=== PATIENT | male | born 1960 | race Caucasian/White ===

== ENCOUNTER 2021-08-23 12:01 | Outpatient (REF) | payer MEDICARE, MEDICAID, SELFPAY ==
[2021-08-23 14:58] LABS: COVID-19 Test Negative (Negative); IDNOW Serial# 16C4AD1C
== END 2021-08-23 12:02 | disposition home or self-care (01) ==
LOC: HO.LAB 12:01
PROVIDERS: Visit Provider Internal Medicine
DX: Z20.822 Contact with and (suspected) exposure to COVID-19 (principal)
CPT/HCPCS: 36415; 87635; C9803

== ENCOUNTER 2023-08-18 08:38 | Outpatient (AMB) | payer MEDICARE, MEDICAID, SELFPAY ==
--- NOTE | 2023-08-18 08:39 | MHC.OFFWIV ---
Intake Vital Signs 08/18/23 08:42 Height 5 ft 11 in Weight 276 lb BMI 38.5 BP 160/80 H Blood Pressure Location Lt brachial Position Sitting Pulse 88 Temp 97.9 F Temp Source Temporal Artery Scan Pulse Oximetry (%) 97 Oxygen Delivery Method Room Air Intake Visit Reasons: EP Cough, mucus, Hot Intake Note: pt is here today for cough,mucus hot started 08/13 Patient Tobacco Use Status: Never used Tobacco Allergies No Known Allergies Allergy (Verified 08/18/23 08:40) Do you need a note to return to daycare/school/sports/work: No HPI EP Cough, mucus, Hot HPI Details This is a 62-year-old male patient who presents today for a sick visit. He reports a 5-6 day history of persistent dry cough, nasal congestion, and feelings of being hot and cold. Denies known exposure to sick contacts. Has been hydrated, and taking [id number] Flonase and Mucinex with some minor relief. Denies any shortness of breath or GI symptoms. [facility] Social History Patient Tobacco Use Status: Never used Tobacco Review of Systems Const All systems reviewed & are unremarkable except as noted in HPI and below Physical Exam Const General: cooperative and no acute distress HEENT Head: Yes normocephalic Ears: hearing grossly normal bilaterally General nose exam: Normal external nose present and Normal nares present Face and sinus: Yes normal facial exam Mouth: Normal oral and palatal mucosa present Throat: Yes posterior oropharynx abnormal (mild erythema) Neck Neck: Yes no lymphadenopathy Resp Effort & Inspection: normal respiratory effort, able to speak in complete sentences and Actively coughing Quality: dry Auscultation: clear to auscultation bilaterally Cardio Jugular venous distension: no JVD Palpation: normal PMI Rate: regular rate Rhythm: regular rhythm Skin General skin exam: no rashes or lesions noted Extrem General: Yes capillary refill normal and Yes no clubbing, cyanosis or edema Psych Appearance: grossly normal Mental Status: mental status grossly normal Speech and movement: Normal speech and movement present Assessment & Plan Assessment & Plan (1) Upper respiratory infection: Code(s): J06.9 - Acute upper respiratory infection, unspecified Qualifiers: URI type: unspecified viral URI Qualified Code(s): J06.9 - Acute upper respiratory infection, unspecified Plan: Symptoms consistent with viral upper respiratory illness. COVID/flu/RSV swab obtained, and patient aware he will be notified of results with these are available. I encouraged him to continue with conservative measures for supportive treatment, with flonase, Mucinex, adequate hydration, vitamin C intake, Tylenol/Motrin and I will start him on a course of Benzonate for his cough. If he develops any worsening symptoms, or does not improve with time and these measures, he can return to the clinic for further evaluation. He verbalizes understanding and agrees to plan. Orders: Orders SARS-CoV2/FLU/RSV Today J06.9 - Acute upper respiratory infection, unspecified Medications: New benzonatate 100 mg PO BID 7 days PRN 14 caps 0RF cough R05.9 - Cough, unspecified Coding Level of Care Code Est Pt Level 3 (92998) Diagnoses Viral upper respiratory tract infection J06.9 URI type: unspecified viral URI
[2023-08-18 08:42] VITALS: BP 160/80; PULSE 88; TEMP 36.6; O2SAT 97; BMI 38.5
== END 2023-08-18 08:58 | disposition home or self-care (01) ==
PROVIDERS: Visit Provider Nurse Practitioner Family
DX: J06.9 Acute upper respiratory infection, unspecified (principal)
CPT/HCPCS: 99213

== ENCOUNTER 2023-08-18 08:51 | Outpatient (REF) | payer MEDICARE, MEDICAID, SELFPAY ==
[2023-08-18 12:31] LABS: Influenza A PCR NEGATIVE (Negative); Influenza B PCR NEGATIVE (Negative); Resp Syncy Virus RNA Qual PCR NEGATIVE (Negative); SARS COV2 PCR INHOUSE NEGATIVE (Negative)
== END 2023-08-18 08:52 | disposition home or self-care (01) ==
LOC: HO.LAB 08:51
PROVIDERS: Visit Provider Nurse Practitioner Family
DX: J06.9 Acute upper respiratory infection, unspecified (principal); Z11.52 Encounter for screening for COVID-19
CPT/HCPCS: 0241U

== ENCOUNTER 2023-09-06 13:38 | Outpatient (AMB) | payer MEDICARE, MEDICAID, SELFPAY ==
[2023-09-06 14:16] VITALS: BP 160/86; PULSE 78; TEMP 36.9; O2SAT 96; BMI 38.5
--- NOTE | 2023-09-06 14:16 | AM.OFFWIN_ITS ---
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 Tells me this is the worst it was been. Was seen here on 08/18 and sent something for cough that didnt help. Reports he has a remote hx of asbestosis. Denies pain, fevers, chills, shortness of breath, nausea, vomiting, diarrhea, abdominal pain, headache, vision changes. PE- sinus ttp and facial pressure w/ forward bending History and physical exam concerning for sinusitis. Due to length of symptoms low suspicion for viral illness. This is likely bacterial. No signs of sepsis. Other differentials include pneumonia. Unlikely acute respiratory distress, PE, ACS Plan at this time will discharge with albuterol, prednisone and Augmentin. Educated patient on diagnosis and treatment plan, answered all question, patient verbalizes understanding. At this time patient will be discharged home, advised to return with new or worsening symptoms. Educated on worrisome signs and symptoms and when to return. At this time I feel comfortable discharge home. [facility] Social History Patient Tobacco Use Status: Never used Tobacco Review of Systems Const Details: Constitutional : No Weight loss, No Fever, No Chills, No Fatigue, No Malaise ENT/Mouth : No sore throat, No Rhinorrhea, + sinus pressure Eyes: No Eye Pain, No Swelling, No Redness Cardiovascular : No Chest Pain, No SOB, No Dyspnea on Exertion, No Orthopnea, No Edema, No Palpitations Respiratory : + Cough, No Sputum, No Wheezing Gastrointestinal : No Nausea, No Vomiting, No Diarrhea, No Constipation, No abdominal Pain, No Hematochezia, No Melena Genitourinary : No Dysuria, No Urinary Frequency, No Hematuria, Musculoskeletal : No joint pain, No Myalgias, No Joint Swelling Skin : No Skin Lesions, No rash Neuro : No Weakness, No Numbness, No Dizziness, No Headache Psych : No Anxiety/Panic, No Depression All other systems reviewed and are negative All systems reviewed & are unremarkable except as noted in HPI and below Physical Exam Vital Signs: Last Vital Signs Temp 98.4 F 09/06/23 14:16 Pulse 78 09/06/23 14:16 BP 160/86 H 09/06/23 14:16 Pulse Ox 96 09/06/23 14:16 Oxygen Delivery Method Room Air 09/06/23 14:16 BMI result Body Mass Index 38.5 vss Appearance: Alert.? Oriented X3.? No acute distress.? Head: Normocephalic, atraumatic, no step-offs or deformities + TTP to facial sinuse Eyes: Pupils equal, round and reactive to light.? Neck: Normal inspection.? Neck supple.? CVS: Normal heart rate and rhythm.? Pulses normal.? Respiratory: No respiratory distress.? Breath sounds normal.? Abdomen: Soft and nontender.? Skin: Skin warm and dry.? Normal skin color.? Normal skin turgor.? Extremities: No lower extremity edema.? No calf ttp. 5/5 strength to bilateral upper and lower extremities Neuro: Oriented X 3.? No motor deficit.? No sensory deficit. CN 2-12 intact Assessment & Plan Assessment & Plan (1) Bronchitis: Code(s): J40 - Bronchitis, not specified as acute or chronic Plan Take your medications as prescribed. If you were prescribed antibiotics today, it is important that you take your medication to their entirety, do not skip any doses, do not finish them early. Follow-up with your primary care provider this week. Return to the emergency department with new or worsening symptoms. In case of emergency call 911 Orders: Orders BinaxNOW Covid-19 Ag Today J06.9 - Acute upper respiratory infection, unspecified Medications: New albuterol sulfate 90 mcg/actuation 2 puffs inhalation Q6H PRN 6.7 grams 0RF shortness of breath or wheezing prednisone 40 mg (2 x 20 mg) PO DAILY 5 days 10 tabs 0RF amoxicillin-pot clavulanate 875-125 mg 1 tab PO BID 10 days 20 tabs 0RF prednisone 40 mg (2 x 20 mg) PO DAILY 5 days 10 tabs 0RF albuterol sulfate 90 mcg/actuation 2 puffs inhalation Q6H PRN 6.7 grams 0RF shortness of breath or wheezing Coding Level of Care Code Est Pt Level 3 (56214) Diagnoses Bronchitis J40
== END 2023-09-06 14:43 | disposition home or self-care (01) ==
PROVIDERS: Visit Provider Physician Assistant
DX: J40 Bronchitis, not specified as acute or chronic (principal)
CPT/HCPCS: 99213

== ENCOUNTER 2023-11-01 07:49 | Outpatient (AMB) | payer MEDICARE, MEDICAID, SELFPAY ==
[2023-11-01 08:03] VITALS: BP 140/72; PULSE 83; O2SAT 94; BMI 35.9
--- NOTE | 2023-11-01 08:03 | MHC.PC.OV ---
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 Care Intake Note: Pt is here to est care pt colon screen 08/21/2020 Allergies No Known Allergies Allergy (Verified 11/01/23 08:26) Medication List - Last Reconciled 11/01/23 by MI [place] albuterol sulfate 90 mcg/actuation 2 puffs inhalation Q6H PRN amlodipine 5 mg PO DAILY apple cider vinegar mg PO ascorbate calcium (vitamin C) 500 mg PO DAILY bill seed oil-omega 3-6-9 1,000 mg (580 mg) caps PO methadone 28 mg PO QDAY testosterone cypionate mg IM valsartan-hydrochlorothiazide 320-12.5 mg 1 tab PO DAILY Tobacco use date assessed: 11/01/23 Dental Screening Dental Screen Date: 11/01/23 Did you have a dental visit in the last 12 months?: No Did you have a dental problem in the last 6 months where you did not have access to dental care?: No Was dental information given to patient?: Patient has dentist HPI HPI Comments History of Present Illness Details Patient is a 62-year-old male that I am seeing for the 1st time. Patient is due for colonoscopy, completed Cologuard 4 years prior, will refer to GI. 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 Will draw fasting labs today, including PSA. Will also draw A1c, and testosterone. Patient's blood pressure today's visit is 140/72. This is an improvement from previous visit the walk-in or patient's blood pressure was 160/90. Patient does not want medication to increase medication at this time, instead will take blood pressure measurements at home. Blood pressure remains consistently elevated will titrate up amlodipine. Patient denies dizziness, headache, numbness, chest pain, shortness a breath, nausea, vomiting, diarrhea. The patient also recently had left arthroscopic knee surgery, has knee brace and crutches in the office today. He is being followed by [facility]. Patient has a chief complaint today postnasal drip x3 months. Patient has tried eliminating allergens from his home or potential irritants to his respiratory system, with little effect. Patient has not yet utilize fluticasone, or other allergy medication. Will start dose today with a small course of prednisone due to the patient having a feeling of ear fullness and his left ear. [facility] Surgical History S/P left knee arthroscopy History of right hip replacement Family History Mother CHF (congestive heart failure) Social History Housing: House Alcohol intake: current Comment: once a month Patient Tobacco Use Status: Never used Tobacco e-Cigarette/Vaping Use: Never Used Second Hand Smoke Exposure: No service: No Current occupational status: disabled Questionnaire PHQ-9 Over the last 2 weeks, how often have you been bothered by any of the following problems? 1. Little interest or pleasure in doing things: not at all 2. Feeling down, depressed, or hopeless: several days 3. Trouble falling or staying asleep, or sleeping too much: not at all 4. Feeling tired or having little energy: not at all 5. Poor appetite or overeating: not at all 6. Feeling bad about yourself - or that you are a failure or have let yourself or your family down: several days 7. Trouble concentrating on things, such as reading the newspaper or watching television: not at all 8. Moving or speaking so slowly that other people could have noticed. Or the opposite - being so fidgety or restless that you have been moving around a lot more than usual: not at all 9. Thoughts that you would be better off or of hurting yourself in some way: not at all Total score: 2 Depression Screening Interpretation: Negative Depression Screening Done: Yes 27607 - PHQ-9 Billing: Yes Source: Developed by Drs. Anurag Miranda, Pari Garzon, Rosales Oakley and colleagues, with an educational pao from [employer]. Thrive Questionnaire Date Thrive assessed: 11/01/23 I am a: Patient What is your living situation today?: I have a steady place to live Within the past 12 months, did the food you bought not last and you didn't have the money to get more?: Sometimes True Within the past 12 months, did you worry whether your food would run out before you got money to buy more?: Sometimes True Do you have trouble paying for medicines?: No Do you have trouble getting transportation to medical appointments?: No Do you have trouble paying your heating and electricity bill?: Yes Do you have trouble taking care of your child, family member or friend?: No Do you have trouble with day-to-day activities such as bathing, preparing meals, shopping, managing finances, etc.?: No Are you currently unemployed and looking for a job?: No Are you interested in more education?: No THRIVE Score: 3 AUDIT C Alcohol Use Questionnaire (AUDIT-C) 1. How often do you have a drink containing alcohol?: Monthly or less 2. How many drinks containing alcohol do you have on a typical day when you are drinking?: 1 or 2 3. How often do you have six or more drinks on one occasion?: Never Total Score: 1 NATALIIA-7 AMB Questionnaire NATALIIA-7 Date NATALIIA - 7 assessed: 11/01/23 Feeling nervous, anxious, or on edge: 1 = Several days Not being able to stop or control worryin = Not at all Worrying too much about different things: 0 = Not at all Trouble relaxin = Not at all Being so restless that it is hard to sit still: 0 = Not at all Becoming easily annoyed or irritable: 1 = Several days Feeling afraid as if something awful might happen: 0 = Not at all Total NATALIIA-7 score (0-4 normal; 5-9 mild; 10-14 moderate; 15-21 severe): 2 Source: Developed by Drs. Anurag Miranda, Pari Garzon, Rosales Oakley and colleagues, with an educational pao from [employer]. NATALIIA-7 Assessment Billing NATALIIA-7 Assessment Tool: NATALIIA-7 Assessment 28768 Review of Systems Const All systems reviewed & are unremarkable except as noted in HPI and below ENT Reports nasal congestion, Reports post nasal drip and Reports other (Ear fullness left ear) Physical exam (Primary Care) Care Plan Goal for BP management: Patient will take blood pressure measurements at home. Next steps: Will get back to office if blood pressure measurements remain elevated in 2 weeks. BMI result Body Mass Index 35.9 Tobacco/Smoking Status: Tobacco use Status Patient Tobacco Use Status Never used Tobacco 11/01/23 08:03 Depression Screening Interpretation: Negative Const Other: Appearance: Alert.? Oriented X3.? No acute distress.? Head: Normocephalic, atraumatic, Eyes: Pupils equal, round and reactive to light.? ENT: Pharynx Erythema, +post nasal drip. TM intact and pearly carrillo, effusion of left TM without erythema. ? Neck: Normal inspection.? Neck supple.? CVS: Normal heart rate and rhythm.? Pulses normal.? Respiratory: No respiratory distress.? Breath sounds normal.? Skin: Skin warm and dry.? Normal skin color.? Normal skin turgor.? Neuro: Oriented X 3.? No motor deficit.? No sensory deficit. CN 2-12 intact Assessment and Plan Assessment & Plan (1) Hypertension: Comment: Patient will take blood pressure measurements at home and return to the office with values in 2 weeks. Patient has been educated on signs of worsening symptoms and when to report back to the office or when to present to the deep Code(s): I10 - Essential (primary) hypertension Qualifiers: Hypertension type: unspecified Qualified Code(s): I10 - Essential (primary) hypertension (2) Post-nasal drip: Comment: Will give Flonase and Zyrtec. Code(s): R09.82 - Postnasal drip (3) Ear fullness: Comment: Will give short course of prednisone. Code(s): H93.8X9 - Other specified disorders of ear, unspecified ear Qualifiers: Laterality: left Qualified Code(s): H93.8X2 - Other specified disorders of left ear Plan: Take your medications as prescribed. If you were prescribed antibiotics today, it is important that you take your medication to their entirety, do not skip any doses, do not finish them early. Follow-up with your primary care provider this week. Return to the emergency department with new or worsening symptoms. Such as fevers, chills, chest pain, shortness of breath, nausea, vomiting, dizziness, headache, vision changes, lethargy In case of emergency call 911 Plan Follow-up in 4 months with physical exam. Orders: Orders TSH reflex Free T4 Today Z13.29 - Encounter for screening for other suspected endocrine disorder Comprehensive Met. Panel Today Z91.89 - Other specified personal risk factors, not elsewhere classified Complete Blood Count Auto Diff Today Z13.0 - Encounter for screening for diseases of the blood and blood-forming organs and certain disorders involving the immune mechanism Lipid Panel Today Z13.220 - Encounter for screening for lipoid disorders PSA,Total (Free>4and<10) Today Z12.5 - Encounter for screening for malignant neoplasm of prostate Vitamin D 25-OH (D2 and D3) Today Z13.21 - Encounter for screening for nutritional disorder Vitamin B6 Today Z13.21 - Encounter for screening for nutritional disorder Vitamin B12 Today Z13.21 - Encounter for screening for nutritional disorder UA CC w/rflx Micro + Cult Today Z13.89 - Encounter for screening for other disorder Testosterone, Free/Total Today E34.9 - Endocrine disorder, unspecified Hemoglobin A1c Today Z13.1 - Encounter for screening for diabetes mellitus Referrals Gastroenterology Referral Z12.11 - Encounter for screening for malignant neoplasm of colon Medications: New fluticasone propionate 50 mcg/actuation (Allergy Relief (fluticasone)) administer into each nostril 2 sprays intranasal DAILY 16 grams 0RF cetirizine (All Day Allergy (cetirizine)) 10 mg PO DAILY 90 caps 0RF prednisone 20 mg PO BID 10 tabs 0RF Coding Level of Care Code Est Pt Level 3 (30794) Diagnoses Hypertension, unspecified type I10 Hypertension type: unspecified Post-nasal drip R09.82 Sensation of fullness in left ear H93.8X2 Laterality: left Additional Codes NATALIIA-7 Assessment Billing - NATALIIA-7 Assessment Tool: NATALIIA-7 Assessment 50310 ([id number]) Time Spent (min) 30
== END 2023-11-01 08:44 | disposition home or self-care (01) ==
PROVIDERS: Visit Provider Nurse Practitioner Primary Care
DX: I10 Essential (primary) hypertension (principal); R09.82 Postnasal drip; H93.8X2 Other specified disorders of left ear
CPT/HCPCS: 99214

== ENCOUNTER 2023-11-02 06:13 | Outpatient (REF) | payer MEDICARE, MEDICAID, SELFPAY ==
[2023-11-02 11:07] LABS: MANUAL DIFF FLAG NO
[2023-11-02 11:13] LABS: Appearance Urine Clear; Color Urine Dark Yellow; Glucose Urine UA Negative (Negative); Leukocyte Esterase Urine Negative (Negative); Nitrite Urine Negative (Negative); PH 5.5 (5.0-9.0); Specific Gravity - Urine 1.025 (1.005-1.025); Urine Blood Negative (Negative); Urine Ketones Negative (Negative); Urine Protein Negative (Neg-Trace)
[2023-11-02 11:34] LABS: Basophils Percent Auto 0.4 % (0-2); Eosinophils Absolute Auto 0.2 X10*3/uL (0.0-0.4); Eosinophils Percent Auto 2.2 % (0-4); Hematocrit 45.5 % (42.0-52.0); Hemoglobin 15.1 g/dl (14.0-18.0); Imm Gran Abs Auto 0.02 X10*3/uL (0.00-0.03); Imm Gran Pct Auto 0.3 % (0.0-0.4); Lymphocytes Absolute Auto 2.2 X10*3/uL (1.2-4.9); Lymphocytes Percent Auto 31.2 % (20-40); Mean Corpuscular HGB Conc 33.2 g/dl (31.0-36.0); Mean Corpuscular Hemoglobin 29.9 pg (27.0-33.0); Mean Corpuscular Volume 90.1 fL (80.0-98.0); Mean Platelet Volume 10.2 fL (9.4-12.4); Monocytes Absolute Auto 0.5 X10*3/uL (0.1-1.2); Monocytes Percent Auto 6.3 % (2-11); Neutrophils Absolute Auto 4.2 x10*3/uL (2.0-8.3); Neutrophils Percent Auto 59.6 % (45-73); Platelet Count 275 X10*3/uL (160-400); Red Blood Count 5.05 X10*6/uL (4.60-5.80); Red Cell Distribution Width 13.2 % (11.0-16.0); White Blood Count 7.1 X10*3/uL (4.8-10.8)
[2023-11-02 11:48] LABS: Estimated Average Glucose 100 mg/dL; Hemoglobin A1c % 5.1 % (<6.0)
[2023-11-02 12:02] LABS: PSA,Total (Free>4and<10) 2.61 ng/mL (0.00-4.00)
[2023-11-02 12:03] LABS: Alanine Aminotransferase 15 U/L (0-40); Albumin Level 4.2 g/dL (3.5-5.0); Alkaline Phosphatase 63 U/L (39-117); Anion Gap 11 (12-20); Aspartate Amino Transferase 18 U/L (5-37); Bilirubin Total 0.8 mg/dL (0.0-1.0); Blood Urea Nitrogen 13 mg/dL (9-16); Calcium 10.5 mg/dL (8.4-10.2); Carbon Dioxide 29 mmol/L (22-29); Chloride 105 mmol/L (96-108); Cholesterol 181 mg/dL (<200); Estimated Glomerular Filt Rate > 60; Glucose Random 87 mg/dL (60-115); HDL Cholesterol 39 mg/dL (>40); LDL Cholesterol Calculated 98 mg/dL (<100); Potassium 4.2 mmol/L (3.3-5.1); Sodium 141 mmol/L (135-145); Total Protein 7.2 g/dL (6.5-8.0); Triglycerides 221 mg/dL (<150)
[2023-11-02 12:07] LABS: TSH reflex Free T4 2.73 uIU/mL (0.32-4.0)
[2023-11-02 12:25] LABS: Vitamin B12 547 pg/mL (200-900)
[2023-11-06 13:52] LABS: Vitamin B6 18.8 ng/mL (2.1-21.7)
[2023-11-07 14:19] LABS: Testosterone, Free 95.6 pg/mL (35.0-155.0); Testosterone, Total 609 ng/dL (250-1100)
== END 2023-11-02 06:14 | disposition home or self-care (01) ==
LOC: HO.HMGCLDS 06:13
PROVIDERS: PCP Nurse Practitioner Primary Care; Visit Provider Nurse Practitioner Primary Care
DX: E34.9 Endocrine disorder, unspecified (principal); Z13.29 Encounter for screening for other suspected endocrine disorder; Z13.0 Encounter for screening for diseases of the blood and blood-forming organs and certain disorders involving the immune mechanism; Z12.5 Encounter for screening for malignant neoplasm of prostate; Z13.21 Encounter for screening for nutritional disorder; Z13.89 Encounter for screening for other disorder; Z13.1 Encounter for screening for diabetes mellitus; Z91.89 Other specified personal risk factors, not elsewhere classified; Z13.220 Encounter for screening for lipoid disorders
CPT/HCPCS: 36415; 80053; 80061; 81003; 82306; 82607; 83036; 84153; 84207; 84402; 84403; 84443; 85025

== ENCOUNTER 2023-12-06 08:35 | Outpatient (AMB) | payer MEDICARE, MEDICAID, SELFPAY ==
[2023-12-06 08:50] VITALS: BP 140/72; PULSE 88; O2SAT 97; BMI 36.0
--- NOTE | 2023-12-06 08:50 | A.OFFPC_ITS ---
Vital Signs 12/06/23 08:50 Height 5 ft 11 in Weight 258 lb 8 oz BMI 36.0 BP 140/72 H Blood Pressure Location Rt brachial Position Sitting Pulse 88 Pulse Source Pulse Oximeter Pulse Oximetry (%) 97 Oxygen Delivery Method Room Air Intake Visit Reasons: Severe mucus problem Intake Note: Pt is here today for severe mucus since , pt states hasn't gotten better. Mild sore throat Allergies No Known Allergies Allergy (Verified 12/06/23 09:02) Medication List - Last Reconciled 12/06/23 by MI [place] albuterol sulfate 90 mcg/actuation 2 puffs inhalation Q6H PRN amlodipine 5 mg PO DAILY apple cider vinegar mg PO ascorbate calcium (vitamin C) 500 mg PO DAILY cetirizine (All Day Allergy (cetirizine)) 10 mg PO DAILY bill seed oil-omega 3-6-9 1,000 mg (580 mg) caps PO fluticasone propionate 50 mcg/actuation (Allergy Relief (fluticasone)) 2 sprays intranasal DAILY methadone 28 mg PO QDAY testosterone cypionate mg IM valsartan-hydrochlorothiazide 320-12.5 mg 1 tab PO DAILY Tobacco use date assessed: 12/06/23 Dental Screening Dental Screen Date: 12/06/23 Did you have a dental visit in the last 12 months?: No Did you have a dental problem in the last 6 months where you did not have access to dental care?: No Was dental information given to patient?: No HPI HPI Comments History of Present Illness Details Patient is a 62-year-old male in for a sick visit. Patient is offering complaints of excessive mucus production, chest congestion, x4 months. Patient has had several for similar issue. Patient states that today he is bringing up green and yellow covered mucus. Denies fever, denies chest pain, denies shortness of breath. Patient states he does get slightly out of breath when going up stairs. 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 Will repeat pulmonary function test. Will obtain chest x- ray today. Will obtain CBC and CMP will give patient Symbicort inhaler, prednisone, azithromycin. Will also refer patient to Pulmonary. Patient also found to be slightly hypertensive at appointment today. This is consistent with previous visits. Patient will be titrated up from 5 mg amlodipine to 10 mg amlodipine. [facility] Surgical History S/P left knee arthroscopy History of right hip replacement Family History Mother CHF (congestive heart failure) Social History Housing: House Alcohol intake: current Comment: once a month Patient Tobacco Use Status: Never used Tobacco e-Cigarette/Vaping Use: Never Used Second Hand Smoke Exposure: No service: No Current occupational status: disabled Cognitive needs: No Hearing needs: No Vision needs: No Questionnaire Thrive Questionnaire Date Thrive assessed: 11/01/23 AUDIT C Alcohol Use Questionnaire (AUDIT-C) 1. How often do you have a drink containing alcohol?: Never 3. How often do you have six or more drinks on one occasion?: Never Total Score: 0 Score Reviewed/Action Taken: Yes NATALIIA-7 AMB Questionnaire NATALIIA-7 Date NATALIIA - 7 assessed: 11/01/23 Source: Developed by Drs. Anurag Miranda, Pari Garzon, Rosales Oakley and colleagues, with an educational pao from [employer]. Review of Systems Const All systems reviewed & are unremarkable except as noted in HPI and below Denies headache(s) ENT Denies dizziness, Denies headache(s), Reports post nasal drip and Reports sore throat Card Denies chest pain, Denies dyspnea and Reports dyspnea on exertion (Walking up stairs) Resp Denies cough, Denies dyspnea and Reports dyspnea on exertion (Walking up stairs) Neuro Denies dizziness and Denies headache(s) Physical exam (Primary Care) Vital Signs: Last Vital Signs Pulse 88 12/06/23 08:50 BP 140/72 H 12/06/23 08:50 Pulse Ox 97 12/06/23 08:50 Oxygen Delivery Method Room Air 12/06/23 08:50 Care Plan Goal for BP management: Patient will increase amlodipine to 10 mg p.o. daily BMI result Body Mass Index 36.0 Tobacco/Smoking Status: Tobacco use Status Tobacco use date assessed 12/06/23 12/06/23 08:53 Patient Tobacco Use Status Never used Tobacco 12/06/23 08:53 e-Cigarette/Vaping Use Never Used 12/06/23 08:53 Thrive Assessment: Date of Thrive Assessment Date Thrive assessed 11/01/23 12/06/23 08:53 Const Other: Appearance: Alert.? Oriented X3.? No acute distress.? Head: Normocephalic, atraumatic. ?ENT: Pharynx normal.? CVS: Normal heart rate and rhythm.? Pulses normal.? Respiratory: No respiratory distress.? Lung sounds diminished bilaterally. Abdomen: Soft and nontender.? Neuro: Oriented X 3.? No motor deficit.? No sensory deficit. CN 2-12 intact Results AMB Rapid Strep AMB Rapid Strep Negative Last Edit by Azra Elder MA on 12/06/23 09:06 Assessment and Plan Assessment & Plan (1) Chest congestion: Comment: Will obtain chest x-ray, will obtain CBC and CMP. Will order PFTs and pulmonary referral. Will give patient Symbicort ,prednisone, and azithromycin Code(s): R09.89 - Other specified symptoms and signs involving the circulatory and respiratory systems Plan: Take your medications as prescribed. If you were prescribed antibiotics today, it is important that you take your medication to their entirety, do not skip any doses, do not finish them early. Follow-up with your primary care provider this week. Return to the emergency department with new or worsening symptoms. Such as fevers, chills, chest pain, shortness of breath, nausea, vomiting, dizziness, headache, vision changes, lethargy In case of emergency call 911 (2) Abnormal sputum: Code(s): R09.3 - Abnormal sputum Plan Patient has physical exam 3 months Orders: Orders XR chest 2V Today R09.89 - Other specified symptoms and signs involving the circulatory and respiratory systems Comprehensive Met. Panel Today Z91.89 - Other specified personal risk factors, not elsewhere classified Complete Blood Count Auto Diff Today Z13.0 - Encounter for screening for diseases of the blood and blood-forming organs and certain disorders involving the immune mechanism PFT pulmonary function test Today R09.89 - Other specified symptoms and signs involving the circulatory and respiratory systems Referrals Pulmonary Medicine Referral R09.3 - Abnormal sputum Medications: New prednisone 20 mg PO DAILY 5 tabs 0RF budesonide-formoterol 160-4.5 mcg/actuation (Symbicort) 2 puffs inhalation BID 10.2 grams 0RF azithromycin For 250 mg dose pack: take 500 mg today (day 1), then 250 mg for 4 days (days 2-5) PO 6 tabs 0RF Coding Level of Care Code Est Pt Level 3 (18407) Diagnoses Chest congestion R09.89 Abnormal sputum R09.3 Time Spent (min) 24
== END 2023-12-06 11:12 | disposition home or self-care (01) ==
PROVIDERS: PCP Nurse Practitioner Primary Care; Visit Provider Nurse Practitioner Primary Care
DX: R09.89 Other specified symptoms and signs involving the circulatory and respiratory systems (principal); R09.3 Abnormal sputum
CPT/HCPCS: 99213

== ENCOUNTER 2023-12-06 09:18 | Outpatient (REF) | payer MEDICARE, MEDICAID, SELFPAY ==
--- NOTE | ~2023-12-06 | XR_ITS ---
EXAMINATION: XR CHEST CLINICAL INFORMATION: R09.89 - Other specified symptoms and signs involving the circulatory an... COMPARISON: None available. TECHNIQUE: 2 views of the chest were obtained. FINDINGS: No significant abnormality is noted involving the heart, lungs, mediastinum, bony thorax or soft tissues. Degenerative changes are present in the spine. XR/XR chest 2V IMPRESSION: Unremarkable examination.
[2023-12-06 10:32] LABS: MANUAL DIFF FLAG NO
[2023-12-06 10:42] LABS: Basophils Absolute Auto 0.1 X10*3/uL (0.0-0.2); Basophils Percent Auto 0.5 % (0-2); Eosinophils Absolute Auto 0.2 X10*3/uL (0.0-0.4); Eosinophils Percent Auto 1.8 % (0-4); Hematocrit 45.4 % (42.0-52.0); Imm Gran Abs Auto 0.07 X10*3/uL (0.00-0.03); Imm Gran Pct Auto 0.6 % (0.0-0.4); Lymphocytes Absolute Auto 2.4 X10*3/uL (1.2-4.9); Lymphocytes Percent Auto 22.2 % (20-40); Mean Corpuscular Hemoglobin 29.9 pg (27.0-33.0); Mean Corpuscular Volume 90.4 fL (80.0-98.0); Monocytes Absolute Auto 1.1 X10*3/uL (0.1-1.2); Monocytes Percent Auto 9.7 % (2-11); Neutrophils Absolute Auto 7.1 x10*3/uL (2.0-8.3); Neutrophils Percent Auto 65.2 % (45-73); Platelet Count 309 X10*3/uL (160-400); Red Blood Count 5.02 X10*6/uL (4.60-5.80); Red Cell Distribution Width 13.5 % (11.0-16.0); White Blood Count 10.9 X10*3/uL (4.8-10.8)
[2023-12-06 10:53] LABS: Alanine Aminotransferase 13 U/L (0-40); Albumin Level 4.1 g/dL (3.5-5.0); Alkaline Phosphatase 70 U/L (39-117); Anion Gap 11 (12-20); Aspartate Amino Transferase 19 U/L (5-37); Bilirubin Total 0.7 mg/dL (0.0-1.0); Blood Urea Nitrogen 10 mg/dL (9-16); Calcium 9.4 mg/dL (8.4-10.2); Carbon Dioxide 28 mmol/L (22-29); Chloride 103 mmol/L (96-108); Estimated Glomerular Filt Rate > 60; Glucose Random 93 mg/dL (60-115); Potassium 4.3 mmol/L (3.3-5.1); Sodium 138 mmol/L (135-145); Total Protein 7.3 g/dL (6.5-8.0)
== END 2023-12-06 09:19 | disposition home or self-care (01) ==
LOC: HO.HMGCX 09:18
PROVIDERS: PCP Nurse Practitioner Primary Care; Visit Provider Nurse Practitioner Primary Care
DX: R09.89 Other specified symptoms and signs involving the circulatory and respiratory systems (principal); Z91.89 Other specified personal risk factors, not elsewhere classified; Z13.0 Encounter for screening for diseases of the blood and blood-forming organs and certain disorders involving the immune mechanism
CPT/HCPCS: 36415; 71046; 80053; 85025

== ENCOUNTER 2024-01-21 16:19 | Outpatient (REF) | payer MEDICARE, MEDICAID, SELFPAY ==
--- NOTE | ~2024-01-21 | CT_ITS ---
CT SINUS WITHOUT CONTRAST CLINICAL INFORMATION: Sinonasal polyp. COMPARISON: None available. TECHNIQUE: A multidetector CT acquisition of the maxillofacial region is obtained without contrast. This CT examination was performed using dose optimization techniques as appropriate, variously including the following: *Automated exposure control *Adjustment of mA and/or kV according to patient size (this includes techniques or standardized protocols for targeted exams where dose is matched to indication/reason for exam; i.e. extremities or head) *Use of iterative reconstruction technique FINDINGS: There is moderate mucosal thickening within the left maxillary sinus which exhibits sclerotic wall thickening as the sequela of chronic sinusitis. There is mild mucosal thickening within the right maxillary sinus which exhibits sclerotic wall thickening as the sequela of chronic sinusitis. Sphenoid sinuses are clear. There is mild mucosal thickening within the ethmoid air cells and inferior frontal sinuses bilaterally. Partial opacification of the left maxillary ostium and infundibulum. The fovea ethmoidalis and olfactory grooves are symmetric in depth. Bony orbits are intact. The TMJs are unremarkable. There is periapical lucency surrounding the root of the left lateral maxillary incisor. The mastoid air cells and middle ear cavities are clear. There is rightward deviation of the nasal septum. There is no polypoid soft tissue within the nasal cavities. CT/CT sinus wo IV con IMPRESSION: * There is moderate mucosal thickening within the left maxillary sinus which exhibits sclerotic wall thickening as the sequela of chronic sinusitis. There is mild mucosal thickening within the right maxillary sinus which exhibits sclerotic wall thickening as the sequela of chronic sinusitis. Partial opacification of the left maxillary ostium and infundibulum. * There is mild mucosal thickening within the ethmoid air cells and inferior frontal sinuses bilaterally. * There is rightward deviation of the nasal septum. * There is periapical lucency surrounding the root of the left lateral maxillary incisor. * [place] type mucosal hypertrophy involving the posterior aspect of the inferior turbinates bilaterally.
== END 2024-01-21 16:20 | disposition home or self-care (01) ==
LOC: HO.CT 16:19
PROVIDERS: PCP Nurse Practitioner Primary Care; Visit Provider Otolaryngology
DX: J34.2 Deviated nasal septum (principal); J33.0 Polyp of nasal cavity
CPT/HCPCS: 70486

== ENCOUNTER 2024-02-01 09:08 | Outpatient (AMB) | payer MEDICARE, MEDICAID, SELFPAY ==
--- NOTE | 2024-02-01 09:25 | MHC.OFFVIS ---
Vital Signs 02/01/24 09:26 Height 5 ft 11 in Weight 259 lb BMI 36.1 BP 144/72 H Blood Pressure Location Rt brachial Position Sitting Pulse 72 Pulse Source Pulse Oximeter Pulse Oximetry (%) 95 Oxygen Delivery Method Room Air Intake Visit Reasons: abnormal sputum Intake Note: Pt reports coughing up yellow and green mucus each morning and white mucus throughout the day. Allergies No Known Allergies Allergy (Verified 02/01/24 09:28) HPI HPI abnormal sputum: Details: 63-year-old gentleman, lifetime nonsmoker, with no prior personal or family history of lung issues referred for evaluation of chronic productive cough since approximately July of 2023. Patient states that he has been treated with several regimens of azithromycin and prednisone and another unspecified antibiotics. He does have deviated nasal septum and has recently been evaluated by an ENT with sinus CT pending. Patient states that he also feels like he has some sinus fullness and postnasal drip/nasal discharge that is worse in the morning. 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 He denies environmental allergies. [facility] Surgical History S/P left knee arthroscopy History of right hip replacement Family History Mother CHF (congestive heart failure) Social History Housing: House Alcohol intake: current Comment: once a month Patient Tobacco Use Status: Never used Tobacco e-Cigarette/Vaping Use: Never Used Second Hand Smoke Exposure: No service: No Current occupational status: disabled Cognitive needs: No Hearing needs: No Vision needs: No Review of Systems Const Denies daytime sleepiness, Denies excessive sweating, Denies fatigue, Denies fever(s), Denies lethargy, Denies malaise, Denies night sweats, Denies snoring and Denies weight loss Eyes Denies blurry vision and Denies itchy eyes ENT Reports nasal congestion, Reports post nasal drip, Denies sinus pain, Denies sinus pressure and Denies other ( Thrush) Card Denies chest pain, Denies pedal edema, Denies dyspnea, Denies orthopnea and Denies paroxysmal nocturnal dyspnea Resp Reports cough, Denies hemoptysis, Reports excessive phlegm production, Denies dyspnea, Denies snoring and Denies wheezing GI Denies abdominal pain and Denies heartburn Musc Denies myalgias, Denies arthralgias and Denies joint swelling Skin/Breast Denies rash Neuro Denies memory loss and Denies seizure-like activity Psych Denies abnormal sleep pattern, Denies anxiety and Denies memory loss Endo Denies excessive sweating, Denies fatigue and Denies heat intolerance Renny/Lymph Denies easy bruising Aller/Immun Denies itchy eyes, Denies seasonal rhinorrhea and Denies wheezing Physical Exam Vital Signs: Last Vital Signs Pulse 72 02/01/24 09:26 BP 144/72 H 02/01/24 09:26 Pulse Ox 95 02/01/24 09:26 Oxygen Delivery Method Room Air 02/01/24 09:26 BMI result Body Mass Index 36.1 Const General: no acute distress and alert Nutritional Appearance: not obese Orientation/consciousness: Other orientation findings ( oriented) HEENT Head: Yes atraumatic Eyes General: appearance normal, both eyes and all related structures Sclerae: sclerae normal EOM: EOMs intact bilaterally Neck Neck: Yes supple Lymphatic: no lymphadenopathy noted Resp Effort & Inspection: normal respiratory effort and no use of accessory muscles Auscultation: clear to auscultation bilaterally Cardio Rate: regular rate Rhythm: regular rhythm Heart sounds: no gallops, no murmurs and no rubs Skin General skin exam: other ( warm) Extrem General: No clubbing, No cyanosis and No edema Assessment & Plan Assessment & Plan (1) Cough: Code(s): R05.9 - Cough, unspecified Category: Medical Plan appears to have cough from postnasal drip/ sinus congestion. CT sinuses is pending. Will treat with empiric Augmentin for 2 weeks. Medications: New amoxicillin-pot clavulanate 875-125 mg 1 tab PO BID 28 tabs 0RF Coding Level of Care Code New Pt Level 3 (31196) Diagnoses Cough R05.9
[2024-02-01 09:26] VITALS: BP 144/72; PULSE 72; O2SAT 95; BMI 36.1
== END 2024-02-01 09:43 | disposition home or self-care (01) ==
PROVIDERS: PCP Nurse Practitioner Primary Care; Visit Provider Internal Medicine Pulmonary Disease
DX: R05.9 Cough, unspecified (principal)
CPT/HCPCS: 99203

== ENCOUNTER → 2024-02-01 09:08 | Outpatient (BNVA) | payer MEDICARE, MEDICAID, SELFPAY | PROVIDERS: PCP Nurse Practitioner Primary Care; Visit Provider Internal Medicine Pulmonary Disease | DX: R05.9 Cough, unspecified (principal); J34.2 Deviated nasal septum | CPT/HCPCS: 99202 ==

== ENCOUNTER 2024-02-21 08:03 | Outpatient (AMB) | payer MEDICARE, MEDICAID, SELFPAY ==
--- NOTE | 2024-02-21 08:07 | MHC.PC.OV ---
Vital Signs 02/21/24 08:09 Height 5 ft 11 in Weight 246 lb BMI 34.3 BP 130/70 Blood Pressure Location Lt brachial Position Sitting Pulse 70 Pulse Source Pulse Oximeter Pulse Oximetry (%) 96 Oxygen Delivery Method Room Air Intake Visit Reasons: Annual PE Intake Note: pt is here for annual PE. Colonoscopy due Allergies No Known Allergies Allergy (Verified 02/21/24 08:43) Medication List - Last Reconciled 02/21/24 by Stephon Srivastava, [place] albuterol sulfate 90 mcg/actuation 2 puffs inhalation Q6H PRN amlodipine 5 mg PO DAILY apple cider vinegar mg PO ascorbate calcium (vitamin C) 500 mg PO DAILY cetirizine (All Day Allergy (cetirizine)) 10 mg PO DAILY bill seed oil-omega 3-6-9 1,000 mg (580 mg) caps PO fluticasone furoate-vilanterol 100-25 mcg/dose (Breo Ellipta) 1 inh inhalation Q24H fluticasone propionate 50 mcg/actuation (Allergy Relief (fluticasone)) 2 sprays intranasal DAILY methadone 28 mg PO QDAY prednisone 20 mg PO DAILY testosterone cypionate 200 mg IM Q4W valsartan-hydrochlorothiazide 320-12.5 mg 1 tab PO DAILY Tobacco use date assessed: 02/21/24 Fall risk assessment: No Falls in past year Dental Screening Dental Screen Date: 02/21/24 Did you have a dental visit in the last 12 months?: No Did you have a dental problem in the last 6 months where you did not have access to dental care?: No Was dental information given to patient?: Patient has dentist HPI HPI Comments History of Present Illness Details Patient is a 63-year-old male in today for his physical exam. Patient is due for colonoscopy he has his scheduled in 3 months. Patient is up-to-date with PSA draw which was 4 months prior. Within normal limits. 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 Recent values were normal, will redraw today. Hypertension: Controlled with 10 mg amlodipine and combination valsartan 320 mg/hydrochlorothiazide 12.5 mg p.o. daily. Patient is currently on 28 mg methadone with goal of weaning off completely. Postnasal drip-patient utilizing cetirizine and fluticasone with mild to moderate effect. Chronic sinus infections-patient is being seen by Ear Nose Throat and Pulmonary. Persistent GERD-patient will get referral to Gastroenterology. Has trialed pantoprazole sodium the past. Left foot neuropathy- will refer for nerve conduction test [facility] Surgical History S/P left knee arthroscopy History of right hip replacement Family History Mother CHF (congestive heart failure) Social History Housing: House Alcohol intake: current Comment: once a month Patient Tobacco Use Status: Never used Tobacco e-Cigarette/Vaping Use: Never Used Second Hand Smoke Exposure: No service: No Current occupational status: disabled Cognitive needs: No Hearing needs: No Vision needs: No Questionnaire Thrive Questionnaire Date Thrive assessed: 11/01/23 AUDIT C Alcohol Use Questionnaire (AUDIT-C) 1. How often do you have a drink containing alcohol?: Never 3. How often do you have six or more drinks on one occasion?: Never Total Score: 0 NATALIIA-7 AMB Questionnaire NATALIIA-7 Date NATALIIA - 7 assessed: 11/01/23 Source: Developed by Drs. Anurag Miranda, Pari Garzon, Rosales Oakley and colleagues, with an educational pao from [employer]. Review of Systems Const All systems reviewed & are unremarkable except as noted in HPI and below Physical exam (Primary Care) Vital Signs: Last Vital Signs Pulse 70 02/21/24 08:09 BP 130/70 02/21/24 08:09 Pulse Ox 96 02/21/24 08:09 Oxygen Delivery Method Room Air 02/21/24 08:09 Care Plan Goal for BP management: Patient's blood pressure controlled will continue take measurements at home BMI result Body Mass Index 34.3 Tobacco/Smoking Status: Tobacco use Status Tobacco use date assessed 02/21/24 02/21/24 08:09 Patient Tobacco Use Status Never used Tobacco 02/21/24 08:09 e-Cigarette/Vaping Use Never Used 02/21/24 08:09 Thrive Assessment: Date of Thrive Assessment Date Thrive assessed 11/01/23 02/21/24 08:09 Const Other: Appearance: Alert.? Oriented X3.? No acute distress.? Head: Normocephalic. Eyes: Pupils equal, round and reactive to light.?Conjunctiva normal. ENT: Pharynx normal.?TM intact and pearly carrillo. Neck: Normal inspection.? Neck supple.?Full ROM. CVS: Normal heart rate and rhythm.? Pulses normal.? Respiratory: No respiratory distress.? Breath sounds normal.? Abdomen: Soft and nontender.? Skin: Skin warm and dry.? Normal skin color.? Normal skin turgor.? Extremities: No lower extremity edema. 5/5 strength to bilateral upper and lower extremities Back: No midline tenderness, no C-spine tenderness, full range of motion, no CVA tenderness bilaterally Neuro: Oriented X 3.? No motor deficit.? No sensory deficit. CN 2-12 intact Assessment and Plan Assessment & Plan (1) Physical exam: Comment: Patient is due for colonoscopy he has his scheduled in 3 months. Patient is up-to-date with PSA draw which was 4 months prior. Within normal limits. 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 Recent values were normal, will redraw today. Hypertension: Controlled with 10 mg amlodipine and combination valsartan 320 mg/hydrochlorothiazide 12.5 mg p.o. daily. Patient is currently on 28 mg methadone with goal of weaning off completely. Postnasal drip-patient utilizing cetirizine and fluticasone with mild to moderate effect. Chronic sinus infections-patient is being seen by Ear Nose Throat and Pulmonary. Persistent GERD-patient will get referral to Gastroenterology. Has trialed pantoprazole sodium the past. Left foot neuropathy- will refer for nerve conduction test Code(s): Z00.00 - Encounter for general adult medical examination without abnormal findings (2) Hypogonadism in male: Code(s): E29.1 - Testicular hypofunction (3) Post-nasal drip: Comment: Will give Flonase and Zyrtec. Code(s): R09.82 - Postnasal drip (4) Hypertension: Code(s): I10 - Essential (primary) hypertension Qualifiers: Hypertension type: unspecified Qualified Code(s): I10 - Essential (primary) hypertension (5) GERD (gastroesophageal reflux disease): Code(s): K21.9 - Gastro-esophageal reflux disease without esophagitis Qualifiers: Esophagitis presence: esophagitis presence not specified Qualified Code(s): K21.9 - Gastro-esophageal reflux disease without esophagitis (6) Neuropathy of left foot: Code(s): G57.92 - Unspecified mononeuropathy of left lower limb Plan draw labs, will follow up. Orders: Orders Basic Metabolic Panel Today Z91.89 - Other specified personal risk factors, not elsewhere classified Complete Blood Count Auto Diff Today Z13.0 - Encounter for screening for diseases of the blood and blood-forming organs and certain disorders involving the immune mechanism Testosterone, Free/Total Today E29.1 - Testicular hypofunction NE nerve conduction velocity Today G57.92 - Unspecified mononeuropathy of left lower limb Medications: New amlodipine 10 mg PO DAILY 90 tabs 1RF Refilled cetirizine (All Day Allergy (cetirizine)) 10 mg PO DAILY 90 caps 0RF fluticasone propionate 50 mcg/actuation (Allergy Relief (fluticasone)) administer into each nostril 2 sprays intranasal DAILY 48 grams 1RF Discontinued amlodipine Discontinued Reason: Doctor's Order 5 mg PO DAILY 90 tabs 1RF Coding Level of Care Code New Pt Prev Care 40-64y(28895) Diagnoses Physical exam Z00.00 Hypogonadism in male E29.1 Post-nasal drip R09.82 Hypertension, unspecified type I10 Hypertension type: unspecified Gastroesophageal reflux disease, unspecified whether esophagitis present K21.9 Esophagitis presence: esophagitis presence not specified Neuropathy of left foot G57.92 Time Spent (min) 28
[2024-02-21 08:09] VITALS: BP 130/70; PULSE 70; O2SAT 96; BMI 34.3
== END 2024-02-21 09:01 | disposition home or self-care (01) ==
PROVIDERS: PCP Nurse Practitioner Primary Care; Visit Provider Nurse Practitioner Primary Care
DX: Z00.00 Encounter for general adult medical examination without abnormal findings (principal); E29.1 Testicular hypofunction; R09.82 Postnasal drip; I10 Essential (primary) hypertension; K21.9 Gastro-esophageal reflux disease without esophagitis; G57.92 Unspecified mononeuropathy of left lower limb
CPT/HCPCS: 99396

== ENCOUNTER 2024-02-21 09:05 | Outpatient (REF) | payer MEDICARE, MEDICAID, SELFPAY ==
[2024-02-21 11:41] LABS: MANUAL DIFF FLAG NO
[2024-02-21 11:52] LABS: Basophils Percent Auto 0.3 % (0-2); Eosinophils Absolute Auto 0.1 X10*3/uL (0.0-0.4); Eosinophils Percent Auto 2.1 % (0-4); Hematocrit 42.6 % (42.0-52.0); Hemoglobin 14.3 g/dl (14.0-18.0); Imm Gran Abs Auto 0.02 X10*3/uL (0.00-0.03); Imm Gran Pct Auto 0.3 % (0.0-0.4); Lymphocytes Percent Auto 33.9 % (20-40); Mean Corpuscular HGB Conc 33.6 g/dl (31.0-36.0); Mean Corpuscular Hemoglobin 30.3 pg (27.0-33.0); Mean Corpuscular Volume 90.3 fL (80.0-98.0); Monocytes Absolute Auto 0.5 X10*3/uL (0.1-1.2); Monocytes Percent Auto 8.9 % (2-11); Neutrophils Absolute Auto 3.2 x10*3/uL (2.0-8.3); Neutrophils Percent Auto 54.5 % (45-73); Platelet Count 238 X10*3/uL (160-400); Red Blood Count 4.72 X10*6/uL (4.60-5.80); Red Cell Distribution Width 12.7 % (11.0-16.0); White Blood Count 5.8 X10*3/uL (4.8-10.8)
[2024-02-21 12:27] LABS: Anion Gap 12 (12-20); Blood Urea Nitrogen 14 mg/dL (9-16); Calcium 9.8 mg/dL (8.4-10.2); Carbon Dioxide 27 mmol/L (22-29); Chloride 106 mmol/L (96-108); Estimated Glomerular Filt Rate > 60; Glucose Random 86 mg/dL (60-115); Potassium 4.5 mmol/L (3.3-5.1); Sodium 140 mmol/L (135-145)
[2024-02-26 15:03] LABS: Testosterone, Total 87 ng/dL (250-1100)
== END 2024-02-21 09:06 | disposition home or self-care (01) ==
LOC: HO.HMGCLDS 09:05
PROVIDERS: PCP Nurse Practitioner Primary Care; Visit Provider Nurse Practitioner Primary Care
DX: Z91.89 Other specified personal risk factors, not elsewhere classified (principal); Z13.0 Encounter for screening for diseases of the blood and blood-forming organs and certain disorders involving the immune mechanism; E29.1 Testicular hypofunction
CPT/HCPCS: 36415; 80048; 84402; 84403; 85025

== ENCOUNTER 2024-03-30 12:59 | Outpatient (REF) | payer MEDICARE, MEDICAID, SELFPAY ==
--- NOTE | 2024-03-30 13:02 | EMG_ITS ---
Chief complaint: Left big toe numbness at least 3-4 months. Denies low back pain. He does have symptoms in the right side but milder and less frequent. Reason for referral: Evaluate for neuropathy Referred by: Stephon Haynes Procedure done: Bilateral lower extremity NCS/EMG Precautions and/or limitations: None The limb temperature was monitored continuously and remained between 32-36 degrees C during the performance of the NCS. Nerve Conduction Studies Anti Sensory Summary Table ?Stim Site NR Onset (ms) Norm Onset (ms) Peak (ms) Norm Peak (ms) O-P Amp (?V) Norm O-P Amp Site1 Site2 Delta-0 (ms) Dist (cm) Esvin (m/s) Norm Esvin (m/s) Left Sural Anti Sensory (Lat Mall) Calf NR <4.0 >5.0 Calf Lat Mall 14.0 Right Sural Anti Sensory (Lat Mall) Calf NR <4.0 >5.0 Calf Lat Mall 14.0 Motor Summary Table ?Stim Site NR Onset (ms) Norm Onset (ms) O-P Amp (mV) Norm O-P Amp iAmp (mV) Amp (1st) (%) Site1 Site2 Delta-0 (ms) Dist (cm) Esvin (m/s) Norm Esvin (m/s) Left Peroneal Motor (Ext Dig Brev) Ankle ? 5.0 <4.0 1.7 >2.5 2.1 100.0 Ankle Ext Dig Brev 5.0 0.0 B Fib ? 14.5 1.5 1.8 88.2 B Fib Ankle 9.5 34.0 36 >40 Poplt ? 15.5 1.5 1.8 88.2 Poplt B Fib 1.0 5.0 50 >40 Left Tibial Motor (Abd Fisher Brev) Ankle ? 4.7 <5 0.6 >2.5 0.7 100.0 Ankle Abd Fisher Brev 4.7 0.0 Knee NR Knee Ankle 0.0 >40 Right Tibial Motor (Abd Fisher Brev) Ankle ? 4.8 <5 1.8 >2.5 2.0 100.0 Ankle Abd Fisher Brev 4.8 0.0 Knee ? 16.7 0.7 0.8 38.9 Knee Ankle 11.9 43.0 36 >40 EMG ?Side Muscle Nerve Root Ins Act Fibs Psw Amp Dur Poly Recrt Int Pat Comment Right AbdHallucis MedPlantar S1-2 Incr 1+ 1+ Nml Nml 0 Nml Complete Right AntTibialis Dp Br Peron L4-5 Nml Nml Nml Nml Nml 0 Nml Complete Right PostTibialis Tibial L5, S1 Nml Nml Nml Nml Nml 0 Nml Complete Right MedGastroc Tibial S1-2 Nml Nml Nml Nml Nml 0 Nml Complete Right VastusMed Femoral L2-4 Nml Nml Nml Nml Nml 0 Nml Complete Left AbdHallucis MedPlantar S1-2 Incr 1+ 1+ Nml Nml 0 Nml Complete Left AntTibialis Dp Br Peron L4-5 Nml Nml Nml Nml Nml 0 Nml Complete Left PostTibialis Tibial L5, S1 Nml Nml Nml Nml Nml 0 Nml Complete Left MedGastroc Tibial S1-2 Nml Nml Nml Nml Nml 0 Nml Complete Left VastusMed Femoral L2-4 Nml Nml Nml Nml Nml 0 Nml Complete FINDINGS: Left peroneal nerve showed prolonged distal latency, small amplitude and slow conduction velocity distally. Left tibial nerve showed very small/absent responses. Right tibial nerve showed normal distal latency, small amplitude and slow conduction velocity. Bilateral sural nerves absent response. Concentric needle EMG was performed in selected muscles of the bilateral lower extremities. Study revealed signs of electric abnormalities as shown in the table above. Bilateral AH showed increased insertional activity, PSWs and fibrillations. IMPRESSION: 1. This is an abnormal study. 2. 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 3. There is no electrodiagnostic evidence for lumbosacral plexopathy or lumbar radiculopathy. Thank you for your kind referral. Lakshmi Mohan MD, RY Board Certified, [place] [employer] and [employer] (ABPMR) Board Certified, [place] [employer] of Electrodiagnostic Medicine (ABEM) CODIN 00710 x 2 MTDD
== END 2024-03-30 13:00 | disposition home or self-care (01) ==
LOC: HO.NEURO 12:59
PROVIDERS: Visit Provider Nurse Practitioner Primary Care
DX: G57.92 Unspecified mononeuropathy of left lower limb (principal)
CPT/HCPCS: 95886; 95909

== ENCOUNTER → 2024-03-30 13:02 | Outpatient (BNV) | payer MEDICARE, MEDICAID, SELFPAY | PROVIDERS: Visit Provider Physical Medicine & Rehabilitation | DX: G57.93 Unspecified mononeuropathy of bilateral lower limbs (principal) | CPT/HCPCS: 95886; 95909 ==

== ENCOUNTER 2024-06-27 07:40 | Emergency (ER) | payer MEDICARE, MEDICAID, SELFPAY ==
--- NOTE | ~2024-06-27 | XR_ITS ---
EXAMINATION: XR CHEST CLINICAL INFORMATION: Cough. Chest pain. COMPARISON: X-ray dated November 26, 2023 TECHNIQUE: 2 views of the chest were obtained. FINDINGS: No consolidation pleural effusion or pneumothorax. Cardiomediastinal silhouette is normal in size. Calcified plaque aortic arch. Multilevel thoracic spondylosis.. XR/XR chest 2V IMPRESSION: No acute airspace disease Electronically signed by: Leoncio Escobedo MD 06/27/2024 09:06 AM [facility]
--- NOTE | 2024-06-27 07:43 | ECG_ITS ---
Test Reason : chest pain Blood Pressure : / mmHG Vent. Rate : 092 BPM Atrial Rate : 092 BPM P-R Int : 160 ms QRS Dur : 094 ms QT Int : 350 ms P-R-T Axes : 061 -54 049 degrees QTc Int : 432 ms Normal sinus rhythm Left anterior fascicular block Abnormal ECG No previous ECGs available Referred By: Generic ED Physician Electronically Signed By:BHARATH JARQUIN MD
[2024-06-27 07:50] VITALS: BP 137/77; PULSE 98; RESP 18; TEMP 36.9; O2SAT 95; BMI 33.4
--- NOTE | 2024-06-27 08:26 | PC.NURSE ---
pt a&ox3, vss, monitor and storage bin tender applied, pt states he currently has no chest pain- only has pain when coughing, pt states this has been occurring every fall. pt c/o uri symptoms. will have tech to lab draw/swab, cxr previously performed, ekg performed, lungs have crackles in the bases, provider at bedside, will continue to monitor.
--- OUTSIDE RECORDS SUMMARY | 2024-06-27 08:27 | XMS_ITS | Continuity of Care Document ---
Author Organization [facility] Address [address] [place] [id number]- Care Team Providers Care Monitoring Tech Name Role Phone Villa CHE, Rubens Hammond Primary Care Physician Unavail able Encounter [facility] [place] Date(s): 02/11/24 - 03/12/[address] [id number] Attending Physician: Mike Aquino Admitting Physician: Mike Aquino Referring Physician: AdmtrMike Allergies, Adverse Reactions, Alerts No Known Allergies Medications amLODIPine 5 mg oral tablet 1 tablet = 5 mg, By Mouth, Daily, 0 Refills, Maintenance, 10/15/23 15:59:00 EST, Partial fill upon patient request if the prescription is for a schedule II opioid drug. Start Date: 10/15/23 Status: Ordered hydrochlorothiazide-valsartan 12.5 mg-320 mg oral tablet 1 tablet, By Mouth, Daily, 0 Refills, Maintenance, 10/15/23 15:59:00 EST, Partial fill upon patientrequest if the prescription is for a schedule II opioid drug. Start Date: 10/15/23 Status: Ordered ibuprofen 800 mg oral tablet 1 tablet = 800 mg, By Mouth, 3 times a day, # 15 tablet, 0 Refills, Maintenance, Tablet Start Date: 12/25/12 Stop Date: 12/30/12 Status: Ordered Methadone = 29 mg, 0 Refills, Maintenance, 10/15/23 15:59:00 EST, Partial fill upon patient request if the prescription is for a schedule II opioid drug. Start Date: 10/15/23 Status: Ordered Naprosyn 500 mg oral tablet 1 tablet, By Mouth, 2 times a day, # 180 tablet, 0 Refills Start Date: 05/06/09 Stop Date: 05/20/09 Status: Ordered [place]-3 Fish Oil By Mouth, 3 times a day, 0 Refills, Maintenance, 10/15/23 16:00:00 EST, Partial fill upon patient request if the prescription is for a schedule II opioid drug. Start Date: 10/15/23 Status: Ordered Patient Care team information Care Team Personnel Name: Rubens Driver MD Position: Reference Physician Member Role: PCP Address: Address: [address] [place] [address]- Care Team Related Persons Name: JERRICA PEREA
--- OUTSIDE RECORDS SUMMARY | 2024-06-27 08:27 | XMS_ITS | Continuity of Care Document ---
Author Organization [facility] Address [address] [place] [id number]- Care Team Providers Care Supervisor [employer] Name Role Phone Rubens Driver MD Primary Care Physician Unavail able Encounter [facility] [place] Date(s): 10/27/23 - 02/21/[address] [id number]- Encounter Diagnosis Pain in left knee(Final) - Discharge Disposition: A-D/C Home Attending Physician: Rubens Driver MD Admitting Physician: Rubens Driver MD Referring Physician: Raymond Garcia MD Allergies, Adverse Reactions, Alerts No Known Allergies [...] Date: 05/06/09 Stop Date: 05/20/09 Status: Ordered [place]-3 Fish Oil By Mouth, 3 times a day, 0 Refills, Maintenance, 10/15/23 16:00:00 EST, Partial fill upon patient request if the prescription is for a schedule II opioid drug. Start Date: 10/15/23 Status: Ordered Patient Care team information Care Team Personnel Name: Villa CHE, Rubens Hammond Position: Reference Physician Member Role: PCP Address: Address: [address] [place] [address] Care Team Related Persons Name: JERRICA PEREA
--- NOTE | 2024-06-27 08:33 | ED_ITS ---
HPI - Chest Pain General Chief Complaint: Chest Pain Stated Complaint: Chest pain, congestion Time Seen by Provider: 06/27/24 08:11 Source: patient Mode of arrival: ambulatory Limitations: no limitations History of Present Illness HPI narrative: A very pleasant 63 years old patient presented to the emergency department with complaining of cough and congestion which is about 6 months' duration and also complaining of chest pain for 3 weeks. The chest pain is worse when he lies down better standing up radiated to the left shoulder MD complaint: chest pain Onset (ago): week(s) (3) Timing of current episode: now resolved Prior episodes: No Onset: during rest Pain location: left chest Pain radiation: left shoulder Severity: mild Quality: aching Relieving factors: sitting upright Risk Factors Coronary artery disease risk factors: hypertension Thoracic aortic dissection risk factors: none Related Data Home Medications ?Medication ?Instructions ?Recorded ?Confirmed apple cider vinegar 500 mg tablet mg PO 11/01/23 02/21/24 ascorbate calcium (vitamin C) 500 500 mg PO DAILY 11/01/23 02/21/24 mg tablet bill seed oil-omega 3-6-9 1,000 mg cap PO 11/01/23 02/21/24 (580 mg) capsule methadone 10 mg/mL oral concentrate 28 mg PO QDAY 11/01/23 02/21/24 Previous Rx's ?Medication ?Instructions ?Recorded albuterol sulfate 90 mcg/actuation 2 puff inhalation Q6H PRN 09/06/23 aerosol inhaler shortness of breath or wheezing #6.7 grams valsartan 320 1 tab PO DAILY #90 tabs 11/30/23 mg-hydrochlorothiazide 12.5 mg tablet prednisone 20 mg tablet 20 mg PO DAILY #5 tabs 12/06/23 fluticasone furoate 100 1 inh inhalation Q24H #60 ea 12/09/23 mcg-vilanterol 25 mcg/dose inhalation powder (Breo Ellipta) fluticasone propionate 50 2 spray intranasal DAILY #48 grams 02/21/24 mcg/actuation nasal spray,suspension (Allergy Relief (fluticasone)) testosterone cypionate 200 mg/mL 200 mg IM Q4W #1 mL 04/22/24 intramuscular oil amlodipine 10 mg tablet 10 mg PO DAILY #90 tabs 05/22/24 cetirizine 10 mg capsule (All Day 10 mg PO DAILY #90 caps 10/17/24 Allergy (cetirizine)) amoxicillin 875 mg-potassium 1 tab PO BID #20 tabs 06/27/24 clavulanate 125 mg tablet Allergies Allergy/AdvReac Type Severity Reaction Status Date / Time No Known Allergies Allergy Verified 06/27/24 07:51 Review of Systems 2 Constitutional: Constitutional: Reports no additional constitutional complaints Cardiovascular: Cardiovascular: Reports as per HPI Respiratory: Respiratory: Reports as per HPI [facility] Past Medical History [facility] Narrative: epi Source: unable to obtain Medical History (Updated 06/27/24 @ 11:43 by Mina Grayson MD) Axonal sensorimotor neuropathy Surgical History S/P left knee arthroscopy History of right hip replacement Family History Family History Mother CHF (congestive heart failure) Social History Social History Housing: House Alcohol intake: current Alcohol intake frequency: holidays/special occasions only Comment: once a month Patient Tobacco Use Status: Never used Tobacco Smoked in Last 30 Days: No e-Cigarette/Vaping Use: Never Used Second Hand Smoke Exposure: No Use of substances other than those prescribed or required for medical reasons: No Any prior treatment program specific to substance use: Yes Advance Directives: No Advance Directives Information Provided: Yes service: No Current occupational status: disabled Cognitive needs: No Hearing needs: No Vision needs: No Physical Exam 2 Vital Signs: Vital Signs: Last Vital Signs Temp 98.4 F 06/27/24 10:22 Pulse 69 06/27/24 10:22 Resp 14 06/27/24 10:22 BP 105/57 L 06/27/24 10:22 Pulse Ox 91 L 06/27/24 10:22 O2 Del Method Room Air 06/27/24 10:22 BMI result Body Mass Index 33.4 He looks well is not toxic-appearing Const: General: cooperative Nutritional Appearance: well nourished O rientation/consciousness: patient oriented x3 HEENT: Head: Yes normal to inspection Ears: hearing grossly normal bilaterally General nose exam: Normal external nose present Face and sinus: Yes normal facial exam Mouth: Normal oral and palatal mucosa present Throat: Yes posterior oropharynx normal Neck: Neck: Yes normal visual inspection Chest: Chest palpation & inspection: normal inspection of the chest Resp: Effort & Inspection: normal respiratory effort and Actively coughing Auscultation: rhonchi Cardio: Jugular venous distension: no JVD Rate: regular rate Rhythm: r egular rhythm GI: Inspection: Yes normal to inspection Palpation (GI): Soft to palpation, not firm and nontender Auscultation: normal bowel sounds Skin: General skin exam: no rashes or lesions noted, elasticity normal and turgor normal Neuro: General: patient oriented x3 Course Reevaluation(s) Reevaluation #1: ON RE-EXAMINATION THE PATIENT REMAIN STABLE, TROPONIN X2 NEGATIVE, D-DIMER NEGATIVE, CHEST X-RAY WAS READ NORMAL, I THINK AT THIS POINT HE CAN BE DISCHARGED HOME FOLLOW-UP WITH THE PRIMARY CARE PHYSICIAN COMPLAINING OF COUGH WHICH IS PRODUCTIVE WILL SEND HIM HOME ON P.O. ANTIBIOTIC EMPIRICALLY FOR POSSIBLE BRONCHITIS Time: 11:42 Medical Decision Making Medical Decision Making [facility] Narrative: Patient presented with URI symptoms chest pain for about 3 weeks pain is kind of atypical worse lying down better when he stands up we will check anyway electrocardiogram hi sensitive troponin Differential Diagnosis Differential Diagnoses: The differential diagnosis associated with the presentation includes Diagnosis ACS/musculoskeletal pain/beer Admission/Observation Consideration of admission/observation: Escalation of care including admission/observation considered Lab Data [facility] Lab Attestation statement: I reviewed the patient's lab results. 06/27/24 08:42 06/27/24 08:42 Labs: Lab Results 06/27/24 06/27/24 Range/Units 08:42 10:30 WBC 9.4 (4.8-10.8) X10*3/uL RBC 4.59 L (4.60-5.80) X10*6/uL Hgb 13.8 L (14.0-18.0) g/dl Hct 40.1 L (42.0-52.0) % MCV 87.4 (80.0-98.0) fL MCH 30.1 (27.0-33.0) pg MCHC 34.4 (31.0-36.0) g/dl RDW 13.0 (11.0-16.0) % Plt Count 263 (160-400) X10*3/uL MPV 9.5 (9.4-12.4) fL Immature Gran % (Auto) 0.6 H (0.0-0.4) % Neut % (Auto) 63.0 (45-73) % Lymph % (Auto) 24.0 (20-40) % Karnes % (Auto) 10.0 (2-11) % Eos % (Auto) 2.1 (0-4) % Baso % (Auto) 0.3 (0-2) % Lymph # (Auto) 2.3 (1.2-4.9) X10*3/uL Karnes # (Auto) 0.9 (0.1-1.2) X10*3/uL Eos # (Auto) 0.2 (0.0-0.4) X10*3/uL Baso # (Auto) 0.0 (0.0-0.2) X10*3/uL Abs Immat Gran (auto) 0.06 H (0.00-0.03) X10*3/uL Absolute Neuts (auto) 5.9 (2.0-8.3) x10*3/uL Absolute Nucleated RBC 0.000 (0.0-0.012) X10*3/uL Nucleated RBC % (auto) 0.0 (0.0-0.2) /100WBC D-Dimer High Sensitivty 223 NG/ML Sodium 140 (135-145) mmol/L Potassium 4.0 (3.3-5.1) mmol/L Chloride 106 (96-108) mmol/L Carbon Dioxide 27 (22-29) mmol/L Anion Gap 11 L (12-20) BUN 12 (9-16) mg/dL Creatinine 0.80 (0.5-1.4) mg/dL Estim Creat Clear Calc 116.8 Estimated GFR > 60 Random Glucose 103 (60-115) mg/dL Calcium 9.4 (8.4-10.2) mg/dL Total Bilirubin 0.5 (0.0-1.0) mg/dL AST 21 (5-37) U/L ALT 14 (0-40) U/L Alkaline Phosphatase 64 (39-117) U/L Troponin I High Sens < 2.7 < 2.7 (<3.5-35.0) ng/L Total Protein 7.1 (6.5-8.0) g/dL Albumin 4.0 (3.5-5.0) g/dL Influenza Type A (PCR) NEGATIVE (Negative) Influenza Type B (PCR) NEGATIVE (Negative) RSV RNA Qual (PCR) NEGATIVE (Negative) SARS-CoV-2 RNA (RT-PCR) NEGATIVE (Negative) Independent Interpretation I performed an independent interpretation of an: EKG and Plain X-Ray Interpretation: Normal sinus rhythm rate [address]-T changes REVIEWED AND INTERPRETED BY ME Radiology Impression Discussion of test interpretation with radiology: I have reviewed the radiologist's reading. Chronic Conditions Patient?s care impacted by: Hypertension Discharge Plan Discharge Clinical Impression: Bronchitis Chest pain Qualifiers: Chest pain type: unspecified Qualified Code(s): R07.9 - Chest pain, unspecified Patient Disposition: Home, Self-Care Instructions: Chest Pain (DC) Additional Instructions: PLEASE FOLLOW-UP WITH YOUR PRIMARY CARE PHYSICIAN CALL TODAY AND MAKE AN APPOINTMENT, BLOOD TEST FOR HEART ATTACK WAS NEGATIVE X2 Prescriptions: New amoxicillin-pot clavulanate 875-125 mg tablet 1 tab PO BID Qty: 20 0RF No Action valsartan-hydrochlorothiazide 320-12.5 mg tablet 1 tab PO DAILY Qty: 90 1RF fluticasone furoate-vilanterol [Breo Ellipta] 100-25 mcg/dose blister with device 1 inh inhalation Q24H Qty: 60 0RF testosterone cypionate 200 mg/mL oil 200 mg IM Q4W Qty: 1 3RF amlodipine 10 mg tablet 10 mg PO DAILY Qty: 90 0RF All Day Allergy (cetirizine) 10 mg capsule 10 mg PO DAILY Qty: 90 0RF fluticasone propionate [Allergy Relief (fluticasone)] 50 mcg/actuation spray,suspension 2 spray intranasal DAILY Qty: 48 1RF Rx Instructions: administer into each nostril albuterol sulfate 90 mcg/actuation HFA aerosol inhaler 2 puff inhalation Q6H PRN (Reason: shortness of breath or wheezing) Qty: 6.7 0RF methadone 10 mg/mL concentrate 28 mg PO QDAY apple cider vinegar 500 mg tablet PO bill seed oil-omega 3-6-9 1,000 mg (580 mg) capsule PO ascorbate calcium (vitamin C) 500 mg tablet 500 mg PO DAILY prednisone 20 mg tablet 20 mg PO DAILY Qty: 5 0RF Referrals: Physician,Unknown J [Primary Care Provider] - 2 days Print Language: Tongan
[2024-06-27 08:47] LABS: MANUAL DIFF FLAG NO
[2024-06-27 08:50] LABS: Basophils Percent Auto 0.3 % (0-2); Eosinophils Absolute Auto 0.2 X10*3/uL (0.0-0.4); Eosinophils Percent Auto 2.1 % (0-4); Hematocrit 40.1 % (42.0-52.0); Hemoglobin 13.8 g/dl (14.0-18.0); Imm Gran Abs Auto 0.06 X10*3/uL (0.00-0.03); Imm Gran Pct Auto 0.6 % (0.0-0.4); Lymphocytes Absolute Auto 2.3 X10*3/uL (1.2-4.9); Mean Corpuscular HGB Conc 34.4 g/dl (31.0-36.0); Mean Corpuscular Hemoglobin 30.1 pg (27.0-33.0); Mean Corpuscular Volume 87.4 fL (80.0-98.0); Mean Platelet Volume 9.5 fL (9.4-12.4); Monocytes Absolute Auto 0.9 X10*3/uL (0.1-1.2); Neutrophils Absolute Auto 5.9 x10*3/uL (2.0-8.3); Platelet Count 263 X10*3/uL (160-400); Red Blood Count 4.59 X10*6/uL (4.60-5.80); White Blood Count 9.4 X10*3/uL (4.8-10.8)
[2024-06-27 09:11] LABS: Alanine Aminotransferase 14 U/L (0-40); Alkaline Phosphatase 64 U/L (39-117); Anion Gap 11 (12-20); Aspartate Amino Transferase 21 U/L (5-37); Bilirubin Total 0.5 mg/dL (0.0-1.0); Blood Urea Nitrogen 12 mg/dL (9-16); Calcium 9.4 mg/dL (8.4-10.2); Carbon Dioxide 27 mmol/L (22-29); Chloride 106 mmol/L (96-108); Creatinine Clr Calc Pharmacy 116.8; Estimated Glomerular Filt Rate > 60; Glucose Random 103 mg/dL (60-115); Sodium 140 mmol/L (135-145); Total Protein 7.1 g/dL (6.5-8.0)
[2024-06-27 09:22] LABS: Troponin-I High Sensitivity < 2.7 ng/L (<3.5-35.0)
[2024-06-27 09:43] LABS: Influenza A PCR NEGATIVE (Negative); Influenza B PCR NEGATIVE (Negative); Resp Syncy Virus RNA Qual PCR NEGATIVE (Negative); SARS COV2 PCR INHOUSE NEGATIVE (Negative)
[2024-06-27 10:22] VITALS: BP 105/57; PULSE 69; RESP 14; TEMP 36.9; O2SAT 91
[2024-06-27 10:44] LABS: D Dimer High Sensitivity 223 NG/ML
--- NOTE | 2024-06-27 10:58 | PC.NURSE ---
lab obtained by tech
[2024-06-27 11:02] LABS: Troponin-I High Sensitivity < 2.7 ng/L (<3.5-35.0)
[2024-06-27 12:11] VITALS: BP 105/57; PULSE 18; RESP 18; TEMP 36.8; O2SAT 94
[2024-06-27 12:12] VITALS: BP 105/57; PULSE 18; RESP 18; TEMP 36.8; O2SAT 94
== END 2024-06-27 12:13 | disposition home or self-care (01) ==
PROVIDERS: Emergency Provider Emergency Medicine
DX: J40 Bronchitis, not specified as acute or chronic (principal); R07.89 Other chest pain; M25.512 Pain in left shoulder; I10 Essential (primary) hypertension; Z79.899 Other long term (current) drug therapy; Z03.818 Encounter for observation for suspected exposure to other biological agents ruled out
CPT/HCPCS: 0241U; 36415; 71046; 80053; 84484; 85025; 85379; 93005; 99283; 99285

== ENCOUNTER → 2024-06-27 07:43 | Outpatient (BNV) | payer MEDICARE, MEDICAID, SELFPAY | PROVIDERS: Emergency Provider Emergency Medicine; Visit Provider Internal Medicine Cardiovascular Disease | DX: I44.4 Left anterior fascicular block (principal); R94.31 Abnormal electrocardiogram [ECG] [EKG] | CPT/HCPCS: 93010 ==

== ENCOUNTER → 2024-06-27 07:52 | Outpatient (BNV) | payer MEDICARE, MEDICAID, SELFPAY | PROVIDERS: Emergency Provider Emergency Medicine; Visit Provider Radiology Diagnostic Radiology | DX: R07.9 Chest pain, unspecified (principal); R05.9 Cough, unspecified | CPT/HCPCS: 71046 ==

== ENCOUNTER 2024-06-30 07:25 | Emergency (ER) | payer MEDICARE, MEDICAID, SELFPAY ==
--- NOTE | ~2024-06-30 | CT_ITS ---
EXAMINATION: CT ANGIOGRAM OF THE CHEST WITHOUT AND WITH CONTRAST CLINICAL INFORMATION: Chest pain, hypertension COMPARISON: None. TECHNIQUE: Multidetector volumetric CT imaging of the chest was performed before and after the administration of 70 mL of Omnipaque 350 intravenous contrast without immediate adverse reactions. 3D POSTPROCESSING: Multiple 3-D angiographic images were processed from the initial data set by the pet technologist at the modality workstation under concurrent physician supervision. DOSE LOWERING TECHNIQUES: This CT examination was performed using dose optimization techniques as appropriate, variously including the following: - Automated exposure control - Adjustment of mA and/or kV according to patient size (this includes techniques or standardized protocols for targeted exams where dose is matched to indication/reason for exam; i.e. extremities or head) - Use of iterative reconstruction technique DLP: 669 mGy-cm. FINDINGS: VASCULAR: ASCENDING AORTA: Motion artifact is present. Ascending thoracic aorta is patent and appears normal in size. No evidence of aneurysm or dissection given amount of motion artifact. AORTIC ARCH: Aortic arch is normal in caliber and widely patent. No evidence of aneurysm or dissection. Three-vessel arch anatomy. The great vessels are patent. No significant atherosclerotic plaque DESCENDING AORTA: Descending aorta is normal in caliber and patent. No evidence of aneurysm or dissection. No significant atherosclerotic plaque ABDOMINAL AORTA: Visualized proximal abdominal aorta is normal in caliber. PULMONARY ARTERIES: Examination not tailored to to the pulmonary arteries. Evaluation of the pulmonary arteries is nondiagnostic due to timing of the contrast bolus. NONVASCULAR: LUNGS: The lungs are clear with no evidence of inflammation or suspicious nodules. Calcified granuloma seen in the right upper lobe MEDIASTINUM: Heart is normal in size. Pericardium appears normal . No pathologic lymphadenopathy CORONARY ARTERY CALCIFICATION: Moderate PLEURA: There is no pleural effusion. No pleural mass or thickening. ABDOMINAL VISCERA: Unremarkable OSSEOUS STRUCTURES: Degenerative changes seen in the bilateral shoulder joints. Degenerative disc disease seen in the thoracic spine. No acute osseous process. CT/CT angio chest aorta IMPRESSION: 1. Thoracic aorta is normal in caliber and patent. No evidence of aneurysm or dissection. 2. No acute process. 3. Moderate coronary artery calcifications. Electronically signed by: Jitendra Vazquez MD 06/30/2024 10:05 AM [facility]
--- NOTE | 2024-06-30 07:27 | ECG_ITS ---
Test Reason : chest pain Blood Pressure : / mmHG Vent. Rate : 091 BPM Atrial Rate : 091 BPM P-R Int : 164 ms QRS Dur : 084 ms QT Int : 362 ms P-R-T Axes : 070 -48 041 degrees QTc Int : 445 ms Normal sinus rhythm Left axis deviation Possible Anterior infarct , age undetermined Abnormal ECG When compared with ECG of 27-JUN-2024 07:48, No significant change was found Referred By: Generic ED Physician Electronically Signed By:BHARATH JARQUIN MD
[2024-06-30 07:29] VITALS: BP 110/74; PULSE 95; RESP 18; TEMP 36.5; O2SAT 95; BMI 33.1
--- NOTE | 2024-06-30 07:45 | ED.CHESTPAIN ---
HPI - Chest Pain General Chief Complaint: Chest Pain Stated Complaint: CP, acid reflux Time Seen by Provider: 06/30/24 07:28 Source: patient and old records reviewed Mode of arrival: ambulatory Limitations: no limitations History of Present Illness ED Provider: TC RAE narrative: 63 yo male with PMH of HTN, low T levels, opiate use disorder doing well on low dose methadone who notes for the past week he has intense chest pain up and down and then to the L. He also has this chronic cough with yellow sputum. He is not a smoker. He notes it is much worse at night and last night he got woken up again by a severe L chest pain - which made him nauseated with sweats. He notes he has bad breath now and feels like he is always tasting his food. He has never tried an antacid. No recent travel or procedures and no fam hx of CAD in the 60s. No recent fevers. He was started on augmentin for bronchitis in the ED - negative EKG, johana jenkins MD complaint: chest pain Onset (ago): week(s) (1) Timing of current episode: episodic Prior episodes: Yes Onset: during rest Pain location: substernal and left chest Severity: moderate Quality: aching Relieving factors: nothing Exacerbating factors: supine Associated symptoms: nausea and diaphoresis Treatment prior to arrival: none Related Data Home Medications ?Medication ?Instructions ?Recorded ?Confirmed apple cider vinegar 500 mg tablet mg PO 11/01/23 02/21/24 ascorbate calcium (vitamin C) 500 500 mg PO DAILY 11/01/23 02/21/24 mg tablet bill seed oil-omega 3-6-9 1,000 mg cap PO 11/01/23 02/21/24 (580 mg) capsule methadone 10 mg/mL oral concentrate 28 mg PO QDAY 11/01/23 02/21/24 Previous Rx's ?Medication ?Instructions ?Recorded albuterol sulfate 90 mcg/actuation 2 puff inhalation Q6H PRN 09/06/23 aerosol inhaler shortness of breath or wheezing #6.7 grams valsartan 320 1 tab PO DAILY #90 tabs 11/30/23 mg-hydrochlorothiazide 12.5 mg tablet prednisone 20 mg tablet 20 mg PO DAILY #5 tabs 12/06/23 fluticasone furoate 100 1 inh inhalation Q24H #60 ea 12/09/23 mcg-vilanterol 25 mcg/dose inhalation powder (Breo Ellipta) fluticasone propionate 50 2 spray intranasal DAILY #48 grams 02/21/24 mcg/actuation nasal spray,suspension (Allergy Relief (fluticasone)) testosterone cypionate 200 mg/mL 200 mg IM Q4W #1 mL 04/22/24 intramuscular oil amlodipine 10 mg tablet 10 mg PO DAILY #90 tabs 05/22/24 cetirizine 10 mg capsule (All Day 10 mg PO DAILY #90 caps 06/08/24 Allergy (cetirizine)) amoxicillin 875 mg-potassium 1 tab PO BID #20 tabs 06/27/24 clavulanate 125 mg tablet omeprazole 20 mg capsule,delayed 20 mg PO BID #60 caps 06/30/24 release Allergies Allergy/AdvReac Type Severity Reaction Status Date / Time No Known Allergies Allergy Verified 06/30/24 07:30 Review of Systems Review of Systems: Constitutional : No Weight loss, No Fever, No Chills ENT/Mouth : No sore throat, No Rhinorrhea Eyes: No Eye Pain, No Swelling Cardiovascular : pos Chest Pain, pos SOB, no Dyspnea on Exertion, No Orthopnea, No Edema, No Palpitations Respiratory : No Cough, No Sputum Gastrointestinal : no Nausea, No Vomiting, No Diarrhea, No abdominal Pain, No Hematochezia, No Melena Genitourinary : No Dysuria, No Urinary Frequency Musculoskeletal : No joint pain, No Myalgias, No Joint Swelling Skin : No Skin Lesions, No rash Neuro : No Weakness, No Numbness, No Dizziness, No Headache All other systems reviewed and are negative [facility] Past Medical History Attestation statement: The following information was validated with the patient. Source: old records reviewed Medical History Chest congestion Hypertension GERD (gastroesophageal reflux disease) Axonal sensorimotor neuropathy Surgical History S/P left knee arthroscopy History of right hip replacement Family History Family History Mother CHF (congestive heart failure) Social History Social History Housing: House Alcohol intake: current Alcohol intake frequency: holidays/special occasions only Comment: once a month Patient Tobacco Use Status: Never used Tobacco e-Cigarette/Vaping Use: Never Used Second Hand Smoke Exposure: No service: No Current occupational status: disabled Cognitive needs: No Hearing needs: No Vision needs: No Physical Exam Vital Signs: Vital Signs: Last Vital Signs Temp 97.8 F 06/30/24 10:40 Pulse 80 06/30/24 10:40 Resp 16 06/30/24 10:40 BP 132/71 06/30/24 10:40 Pulse Ox 93 06/30/24 10:40 O2 Del Method Room Air 06/30/24 10:40 BMI result Body Mass Index 33.1 Appearance: Alert. Oriented X3. No acute distress. Eyes: Pupils equal, round and reactive to light. ENT: Pharynx normal. Neck: Normal inspection. Neck supple. CVS: Normal heart rate and rhythm. Pulses normal. Respiratory: No respiratory distress. Breath sounds normal. Abdomen: Soft and nontender. Skin: Skin warm and dry. Normal skin color. Extremities: No lower extremity edema. No calf ttp Neuro: Oriented X 3. No motor deficit. No sensory deficit. Course Course Course Narrative: WBC count chronic cough WBC count 18 CTA for chest ordered Reevaluation(s) Reevaluation #1: pain gone with GI cocktail trop flat again with pain > 6 hours, pain at night not related to exertion Medications Administered Discontinued Medications Generic Name Dose Route Start Last Admin Trade Name Freq PRN Reason Stop Dose Admin Al Hydroxide/Mg Hydroxide 15 ml 06/30/24 07:37 06/30/24 07:55 Magnesium Hydrox/Alum Hydrox 30 Ml Oral.Susp PO 06/30/24 07:38 15 ml ONCE ONE Administration Iohexol 100 ml 06/30/24 09:49 06/30/24 09:49 Iohexol 350 Mg/Ml 100 Ml Infus..Btl IV 06/30/24 09:50 70 ml ONCE ONE Administration Lidocaine HCl 15 ml 06/30/24 07:37 06/30/24 07:54 Lidocaine Hcl Viscous 2 % 15 Ml Solution MUCOUS MEM 06/30/24 07:38 15 ml ONCE ONE Administration Omeprazole 20 mg 06/30/24 07:37 06/30/24 07:54 Omeprazole 20 Mg Capsule.Dr PO 06/30/24 07:38 20 mg ONCE ONE Administration Ondansetron HCl 4 mg 06/30/24 07:37 06/30/24 07:54 Ondansetron Odt 4 Mg Tab.Kirstie LONG 06/30/24 07:38 4 mg ONCE ONE Administration Medical Decision Making Medical Decision Making [facility] Narrative: 63 yo male with PMH of HTN, low T levels, opiate use disorder here with c/o 1 week of intermittent chest pain worse with supine position, recent food regurgitation and hallitosis. He has no fevers, cough is chronic - CXR on 06/27 negative for mass and pneumonia. He has normal distal pulses and pain not consistent with dissection. He just had negative ddimer doubt VTE. He needs EKG, trop x 1 but will start on omeprazole and GI cocktail. Suspect more GI related cause of symptoms Differential Diagnosis Differential Diagnoses: The differential diagnosis associated with the presentation includes GERD, atypical chest pain, low susp for ACS just had negative ddimer doubt VTE has no risk factors Admission/Observation Consideration of admission/observation: Escalation of care including admission/observation considered negative trop no EKG unexplained WBC count no pain in abdomen, no pneumonia, no urinary symptoms plan to repeat CBD with PCP next week start on PPI and better diet Lab Data [facility] Lab Attestation statement: I reviewed the patient's lab results. 06/30/24 08:03 06/30/24 08:03 Labs: Lab Results 06/30/24 Range/Units 08:03 WBC 18.0 H (4.8-10.8) X10*3/uL RBC 4.71 (4.60-5.80) X10*6/uL Hgb 14.4 (14.0-18.0) g/dl Hct 41.2 L (42.0-52.0) % MCV 87.5 (80.0-98.0) fL MCH 30.6 (27.0-33.0) pg MCHC 35.0 (31.0-36.0) g/dl RDW 13.1 (11.0-16.0) % Plt Count 268 (160-400) X10*3/uL MPV 9.4 (9.4-12.4) fL Immature Gran % (Auto) 0.5 H (0.0-0.4) % Neut % (Auto) 85.2 H (45-73) % Lymph % (Auto) 9.7 L (20-40) % [place] % (Auto) 4.2 (2-11) % Eos % (Auto) 0.2 (0-4) % Baso % (Auto) 0.2 (0-2) % Lymph # (Auto) 1.8 (1.2-4.9) X10*3/uL [place] # (Auto) 0.8 (0.1-1.2) X10*3/uL Eos # (Auto) 0.0 (0.0-0.4) X10*3/uL Baso # (Auto) 0.0 (0.0-0.2) X10*3/uL Abs Immat Gran (auto) 0.09 H (0.00-0.03) X10*3/uL Absolute Neuts (auto) 15.3 H (2.0-8.3) x10*3/uL Absolute Nucleated RBC 0.000 (0.0-0.012) X10*3/uL Nucleated RBC % (auto) 0.0 (0.0-0.2) /100WBC Sodium 141 (135-145) mmol/L Potassium 4.0 (3.3-5.1) mmol/L Chloride 106 (96-108) mmol/L Carbon Dioxide 24 (22-29) mmol/L Anion Gap 15 (12-20) BUN 12 (9-16) mg/dL Creatinine 0.88 (0.5-1.4) mg/dL Estim Creat Clear Calc 106.5 Estimated GFR > 60 Random Glucose 139 H (60-115) mg/dL Calcium 9.3 (8.4-10.2) mg/dL Magnesium 2.0 (1.6-2.6) mg/dL Total Bilirubin 0.6 (0.0-1.0) mg/dL Direct Bilirubin 0.2 (0.0-0.5) mg/dL AST 23 (5-37) U/L ALT 18 (0-40) U/L Alkaline Phosphatase 67 (39-117) U/L Troponin I High Sens < 2.7 (<3.5-35.0) ng/L Total Protein 7.3 (6.5-8.0) g/dL Albumin 4.1 (3.5-5.0) g/dL Lipase 11 (8-78) U/L Independent Interpretation I performed an independent interpretation of an: EKG and CT Scan (no dissection normal ) Interpretation: Rate: 91 Rhythm: NSR [place]: left Normal P waves. Normal EDNA. Normal QRS complex. ST T wave : inverted t wave V1, no JANETH qTC: 445 prior studies: no acute ischemia The study has been interpreted contemporaneously by me. . Radiology Impression Discussion of test interpretation with radiology: I have reviewed the radiologist's reading. External Record Review External record reviewed: Outpatient record Prescription Management I considered prescription management with: Other Discharge Plan Discharge Clinical Impression: GERD with esophagitis Qualifiers: Esophagitis bleeding: without hemorrhage Qualified Code(s): K21.00 - Gastro-esophageal reflux disease with esophagitis, without bleeding Elevated WBC count Qualifiers: Leukocytosis type: unspecified Qualified Code(s): D72.829 - Elevated white blood cell count, unspecified Patient Disposition: Home, Self-Care Instructions: Diet for Stomach Ulcers and Gastritis (ED), Esophagitis (ED) Additional Instructions: follow up with doctor next week for repeat blood counts 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 Thoracic aorta is normal in caliber and patent. No evidence of aneurysm or dissection. 2. No acute process. 3. Moderate coronary artery calcifications. Prescriptions: New omeprazole 20 mg capsule,delayed release(DR/EC) 20 mg PO BID Qty: 60 0RF No Action valsartan-hydrochlorothiazide 320-12.5 mg tablet 1 tab PO DAILY Qty: 90 1RF fluticasone furoate-vilanterol [Breo Ellipta] 100-25 mcg/dose blister with device 1 inh inhalation Q24H Qty: 60 0RF testosterone cypionate 200 mg/mL oil 200 mg IM Q4W Qty: 1 3RF amlodipine 10 mg tablet 10 mg PO DAILY Qty: 90 0RF All Day Allergy (cetirizine) 10 mg capsule 10 mg PO DAILY Qty: 90 0RF amoxicillin-pot clavulanate 875-125 mg tablet 1 tab PO BID Qty: 20 0RF fluticasone propionate [Allergy Relief (fluticasone)] 50 mcg/actuation spray,suspension 2 spray intranasal DAILY Qty: 48 1RF Rx Instructions: administer into each nostril albuterol sulfate 90 mcg/actuation HFA aerosol inhaler 2 puff inhalation Q6H PRN (Reason: shortness of breath or wheezing) Qty: 6.7 0RF methadone 10 mg/mL concentrate 28 mg PO QDAY apple cider vinegar 500 mg tablet PO bill seed oil-omega 3-6-9 1,000 mg (580 mg) capsule PO ascorbate calcium (vitamin C) 500 mg tablet 500 mg PO DAILY prednisone 20 mg tablet 20 mg PO DAILY Qty: 5 0RF [place] [facility] [place] [facility] [Provider Group] (call to schedule appointment) Interventions: ED Discharge Assessment Last Done: 06/30/24 10:40 Discharge Date/Time: 06/30/24 10:40 Print Language: [place]
[2024-06-30] MEDS: Lidocaine HCl Viscous 2 % 15 ML SOLUTION MUCOUS MEM (07:54)
[2024-06-30] MEDS: Omeprazole 20 MG CAPSULE.DR PO (07:54)
[2024-06-30] MEDS: Ondansetron ODT 4 MG TAB.RAPDIS TRANSLINGU (07:54)
[2024-06-30] MEDS: Magnesium Hydrox/Alum Hydrox 30 ML ORAL.SUSP 15 ML PO (07:55)
[2024-06-30 08:15] LABS: Basophils Percent Auto 0.2 % (0-2); Eosinophils Percent Auto 0.2 % (0-4); Hematocrit 41.2 % (42.0-52.0); Hemoglobin 14.4 g/dl (14.0-18.0); Imm Gran Abs Auto 0.09 X10*3/uL (0.00-0.03); Imm Gran Pct Auto 0.5 % (0.0-0.4); Lymphocytes Absolute Auto 1.8 X10*3/uL (1.2-4.9); Lymphocytes Percent Auto 9.7 % (20-40); MANUAL DIFF FLAG NO; Mean Corpuscular Hemoglobin 30.6 pg (27.0-33.0); Mean Corpuscular Volume 87.5 fL (80.0-98.0); Mean Platelet Volume 9.4 fL (9.4-12.4); Monocytes Absolute Auto 0.8 X10*3/uL (0.1-1.2); Monocytes Percent Auto 4.2 % (2-11); Neutrophils Absolute Auto 15.3 x10*3/uL (2.0-8.3); Neutrophils Percent Auto 85.2 % (45-73); Platelet Count 268 X10*3/uL (160-400); Red Blood Count 4.71 X10*6/uL (4.60-5.80); Red Cell Distribution Width 13.1 % (11.0-16.0)
[2024-06-30 08:34] LABS: Alanine Aminotransferase 18 U/L (0-40); Albumin Level 4.1 g/dL (3.5-5.0); Alkaline Phosphatase 67 U/L (39-117); Anion Gap 15 (12-20); Aspartate Amino Transferase 23 U/L (5-37); Bilirubin Direct 0.2 mg/dL (0.0-0.5); Bilirubin Total 0.6 mg/dL (0.0-1.0); Blood Urea Nitrogen 12 mg/dL (9-16); Calcium 9.3 mg/dL (8.4-10.2); Carbon Dioxide 24 mmol/L (22-29); Chloride 106 mmol/L (96-108); Creatinine Clr Calc Pharmacy 106.5; Estimated Glomerular Filt Rate > 60; Glucose Random 139 mg/dL (60-115); Lipase 11 U/L (8-78); Sodium 141 mmol/L (135-145); Total Protein 7.3 g/dL (6.5-8.0)
[2024-06-30 08:41] LABS: Troponin-I High Sensitivity < 2.7 ng/L (<3.5-35.0)
[2024-06-30 09:44] VITALS: BP 132/71; PULSE 80; RESP 16; TEMP 36.6; O2SAT 93
[2024-06-30] MEDS: iohexoL 350 MG/ML 100 ML INFUS..BTL IV (09:49)
--- NOTE | 2024-06-30 10:30 | PC.NURSE ---
patient states he had relief of pain with medications given
[2024-06-30 10:40] VITALS: BP 132/71; PULSE 80; RESP 16; TEMP 36.6; O2SAT 93
== END 2024-06-30 10:40 | disposition home or self-care (01) ==
PROVIDERS: Emergency Provider Emergency Medicine
DX: K21.00 Gastro-esophageal reflux disease with esophagitis, without bleeding (principal); D72.829 Elevated white blood cell count, unspecified; R07.9 Chest pain, unspecified; I10 Essential (primary) hypertension; R05.3 Chronic cough; Z79.899 Other long term (current) drug therapy
CPT/HCPCS: 36415; 71275; 80048; 80076; 83690; 83735; 84484; 85025; 93005; 99284; 99285; Q9967

== ENCOUNTER → 2024-06-30 07:27 | Outpatient (BNV) | payer MEDICARE, MEDICAID, SELFPAY | PROVIDERS: Emergency Provider Emergency Medicine; Visit Provider Internal Medicine Cardiovascular Disease | DX: R94.31 Abnormal electrocardiogram [ECG] [EKG] (principal) | CPT/HCPCS: 93010 ==

== ENCOUNTER 2024-08-10 07:20 | Outpatient (REF) | payer MEDICARE, MEDICAID, SELFPAY ==
[2024-08-10 10:39] LABS: Syphilis Screen Nonreactive (Nonreactive)
[2024-08-10 10:45] LABS: HIV AB/AG Nonreactive (Nonreactive); HIV Num 1 0.05 S/CO (0.00-0.99)
[2024-08-10 10:54] LABS: Folate 16.6 ng/mL (> or = 4.0); Vitamin B12 563 pg/mL (200-900)
[2024-08-11 11:48] LABS: Lyme Abs Screen <0.90 index
[2024-08-14 16:53] LABS: IgA 295 mg/dL (70-320); IgG 1506 mg/dL (600-1540); IgM 158 mg/dL (50-300)
== END 2024-08-10 07:21 | disposition home or self-care (01) ==
LOC: HO.HMGCLDS 07:20
PROVIDERS: PCP Nurse Practitioner Family; Visit Provider Psychiatry & Neurology Neurology
DX: G62.9 Polyneuropathy, unspecified (principal); R07.89 Other chest pain; R00.2 Palpitations; I10 Essential (primary) hypertension; I25.10 Atherosclerotic heart disease of native coronary artery without angina pectoris
CPT/HCPCS: 36415; 82607; 82746; 82784; 86334; 86617; 86618; 86780; 87389; 99202

== ENCOUNTER 2024-08-10 12:56 | Outpatient (AMB) | payer MEDICARE, MEDICAID, SELFPAY ==
[2024-08-10 13:08] VITALS: BP 124/62; PULSE 74; BMI 32.3
--- NOTE | 2024-08-10 13:08 | MHC.OFFVIS ---
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: No Allergies No Known Allergies Allergy (Verified 08/10/24 13:10) Medication List - Last Reconciled 08/10/24 by JAYLIN Marrero albuterol sulfate 90 mcg/actuation 2 puffs inhalation Q6H PRN amlodipine 10 mg PO DAILY apple cider vinegar mg PO ascorbate calcium (vitamin C) 500 mg PO DAILY cetirizine (All Day Allergy (cetirizine)) 10 mg PO DAILY fluticasone propionate 50 mcg/actuation (Allergy Relief (fluticasone)) 2 sprays intranasal DAILY methadone 28 mg PO QDAY omeprazole 20 mg PO BID testosterone cypionate 200 mg IM Q4W valsartan-hydrochlorothiazide 320-12.5 mg 1 tab PO DAILY HPI HPI 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 He ruled out for ACS. He was referred to Cardiology in follow-up. Today he presents for cardiology consultation. He has no known cardiac history. He had been seen in the emergency room on 06/27/2024 with cough and chest pain, treated for bronchitis. On 06/30 he was seen in the emergency room again for cough, yellow sputum and chest discomfort. He was again treated for URI, bronchitis. He describes getting sharp pains in his chest, mostly at rest and when laying down. He denies any chest discomfort brought on by physical activity. At this time his cough and breathing has improved. He denies any PND, orthopnea or edema. He will feel brief fluttering in his chest at times lasting seconds. No lightheadedness, presyncope, syncope. He reports good activity tolerance. He has never smoked. 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 His mother and maternal aunt had history of atrial fibrillation. His mother had coronary artery bypass grafting in her 80s and following surgery. His father of aortic aneurysm age 86. Patient does not know if this was thoracic aorta or abdominal aorta. [facility] Medical History (Updated 12/19/24 @ 14:21 by Sara Chakraborty NP-C) Hypertension Chest congestion GERD (gastroesophageal reflux disease) Axonal sensorimotor neuropathy Surgical History S/P left knee arthroscopy History of right hip replacement Family History Mother CHF (congestive heart failure) Social History Housing: House Alcohol intake: current Alcohol intake frequency: holidays/special occasions only Comment: once a month Patient Tobacco Use Status: Never used Tobacco e-Cigarette/Vaping Use: Never Used Second Hand Smoke Exposure: No service: No Current occupational status: disabled Cognitive needs: No Hearing needs: No Vision needs: No Review of Systems Const All systems reviewed & are unremarkable except as noted in HPI and below ENT Denies dizziness Card Details: intermittent fluttering palpitations lasting seconds Reports chest pain (sharp intermittent pain below left breast), Denies chest pain at rest, Denies chest pain with activity, Denies rapid heart rate, Denies pedal edema, Denies edema, Denies leg edema, Denies lightheadedness, Denies palpitations, Denies dyspnea, Denies dyspnea on exertion and Denies orthopnea Resp Denies cough, Denies dyspnea and Denies dyspnea on exertion GI Denies hematochezia and Denies change in stool character Musc Denies abnormal gait, Denies limited range of motion, Denies muscle cramps, Denies muscle weakness, Denies numbness, Denies radiating pain into limb, Denies stiffness and Denies tingling Neuro Denies abnormal gait, Denies dizziness, Denies numbness and Denies tingling Endo Denies palpitations Physical Exam Vital Signs: Last Vital Signs Pulse 74 08/10/24 13:08 BP 124/62 08/10/24 13:08 BMI result Body Mass Index 32.3 Const General: cooperative, healthy appearing, comfortable and no acute distress Orientation/consciousness: patient oriented x3 Neck Neck: Yes normal visual inspection and Yes no JVD Resp Effort & Inspection: normal respiratory effort Auscultation: clear to auscultation bilaterally, no crackles, no rales, no rhonchi and no wheezes Cardio Jugular venous distension: no JVD Rate: regular rate Rhythm: regular rhythm Heart sounds: S1 normal heart sound present, S2 normal heart sound present, no murmurs and no rubs Neuro General: patient oriented x3 Extrem General: Yes normal to inspection and No no pedal edema Psych Appearance: grossly normal Mental Status: mental status grossly normal Speech and movement: Normal speech and movement present Assessment & Plan Assessment & Plan (1) Chest discomfort: Code(s): R07.89 - Other chest pain Category: Medical Plan: Reports of atypical sounding chest discomfort. He did have ER evaluations on 06/27 and 06/30/2024. D-dimer and troponins were negative. His EKG shows sinus rhythm with left axis deviation, can not exclude prior anterior infarct. He has cardiac risk factors of hypertension and family history. A CTA of the chest done 06/30/2024 shows moderate coronary calcifications. Will further evaluate his cardiac condition with an echocardiogram to assess for structural heart disease. An exercise nuclear stress test to evaluate for ischemia. Reasons for test reviewed with him. Signs and symptoms of angina reviewed with him. Continue amlodipine, valsartan/hydrochlorothiazide for good blood pressure control. Labs done 11/02/2023 showed LDL 98. Recommend recheck of fasting lipids. Cardiology follow-up 2 months, sooner if needed. (2) Palpitations: Code(s): R00.2 - Palpitations Category: Medical Plan: He reports intermittent brief fluttering in his chest, lasting seconds. There is a family history of atrial fibrillation in his mother and maternal aunt. Pulse is regular on examination today. Last EKG shows sinus rhythm. Will check a Holter monitor to assess for any atrial fibrillation. (3) Hypertension: Code(s): I10 - Essential (primary) hypertension Category: Medical Qualifiers: Hypertension type: unspecified Qualified Code(s): I10 - Essential (primary) hypertension Plan: Well controlled at present. No med changes made at this time. Continue amlodipine, valsartan/hydrochlorothiazide. (4) Coronary artery calcification seen on CAT scan: Code(s): I25.10 - Atherosclerotic heart disease of [place] coronary artery without angina pectoris Category: Medical Plan: As above. Further evaluating with echo and stress test. Plan Time spent on chart review, documentation, interview and assessment Orders: Orders ECG 3 day holter monitor 08/10/24 R00.2 - Palpitations NM cardiolite stress test 08/10/24 R07.89 - Other chest pain CA echo transthoracic complete 08/10/24 I10 - Essential (primary) hypertension, I25.10 - Atherosclerotic heart disease of [place] coronary artery without angina pectoris, R07.89 - Other chest pain CA stress test 08/10/24 I10 - Essential (primary) hypertension, I25.10 - Atherosclerotic heart disease of [place] coronary artery without angina pectoris, R07.89 - Other chest pain Coding Level of Care Code New Pt Level 4 (23788) Complex EM visit Add On G2211 Diagnoses Chest discomfort R07.89 Palpitations R00.2 Hypertension, unspecified type I10 Hypertension type: unspecified Coronary artery calcification seen on CAT scan I25.10 Time Spent (min) 36
== END 2024-08-10 13:37 | disposition home or self-care (01) ==
PROVIDERS: Visit Provider Nurse Practitioner Family
DX: R07.89 Other chest pain (principal); R00.2 Palpitations; I10 Essential (primary) hypertension; I25.10 Atherosclerotic heart disease of native coronary artery without angina pectoris
CPT/HCPCS: 99204; G2211

== ENCOUNTER → 2024-08-25 07:44 | Outpatient (REF) | payer MEDICARE, MEDICAID, SELFPAY ==
--- NOTE | 2024-08-25 07:47 | CA_ITS ---
Transthoracic Echocardiogram Patient (Last, First, Middle): Rafi Calvillo L Gender: Male Date of : 1960 Age: 63 Procedure Date: 08/25/2024 Procedure Type: Transthoracic Echocardiogram Location: OP Height: 180.34 cm Weight: 106.6 kg BSA: 2.26 m2 Heart Rate: bpm BP: 130 / 62 mmHg Tooling Supervisor: TO Referring MD: Sara MOSQUEDA Splicing Machine Operator: Ran Guzman MD Symptoms: I10 - Essential (primary) hypertension Study Quality: Fair/Contrast ECG Rhythm: Sinus Conclusions: - 1. Normal LV ejection fraction 55-60% with impaired relaxation filling pattern 2. Mild biatrial enlargement 3. Cardiac valvular Dopplers within normal limits 4. Normal RV systolic pressure 5. Mildly dilated ascending aorta at 4.3 cm 6. No gross pericardial effusion Findings Procedure Information Contrast agent, definity, is being given per protocol without apparent complications. Left Ventricle Normal left ventricular size, thickness, and systolic function. The visually estimated ejection fraction is between 55-60%. Spectral Doppler is indicative of an impaired relaxation filling pattern. Right Ventricle Normal right ventricular cavity size and systolic function. Atria The left atrium is mildly dilated. There is no evidence of interatrial shunt. The right atrium is mildly dilated. Aortic Valve There is mild calcification of the aortic valve. There is no aortic valve stenosis. There is no aortic valve regurgitation. Mitral Valve Normal mitral valve structure and function. There is trace mitral valve regurgitation. There is no mitral valve stenosis. Pulmonic Valve The pulmonic valve is likely normal. There is trace pulmonic valve regurgitation. Tricuspid Valve Normal tricuspid valve structure. There is trace tricuspid valve regurgitation. The right ventricular systolic pressure is normal. The right ventricular systolic pressure is 32 mmHg. Normal right atrial pressure. There is no evidence of pulmonary hypertension. Great Vessels The pulmonary artery was not well visualized. There is mild dilatation of the ascending aorta measuring 4.30 cm. Venous The inferior vena cava is normal in size and collapses greater than 50% with inspiration. Pericardium/Pleural There is no evidence of pericardial effusion. Prior Study Comparison No prior study available for comparison. Measurements 2D Linear Measurements IVSd: 1.03 0.6-0.9/0.6-1.0 cm LVIDd: 5.66 3.9-5.3/4.2-5.9 cm LVIDd Index: 2.50 2.4-3.2/2.2-3.1 cm/m2 LVIDs: 3.52 2.0-3.6 cm LVPWd: 0.70 0.7-1.1 cm LA Diam: 3.80 2.7-3.8/3.0-4.0 cm LAIDs Index: 1.68 1.5-2.3 cm/m2 LV Mass: 231.49 67-162/88-224 g LV Mass Index: 102.43 43-95/49-115 g/m2 LVOT Diam: 2.40 3.0+(-)1.3 cm 2D Systolic Function EF 4C: 55.10 >55% EF 2C: 59.30 >55% EF BiP: 58.00 >55% Mitral Valve MV Pk E: 0.71 MV PK A: 0.49 MV Decel Time: 177.00 E/A: 1.40 E'Lateral: 12.80 E'Medial: 9.14 E/E' Med: 7.70 E/E' Lat: 5.50 PHT: 52.00 MVA PHT: 4.23 Decel [place]: 4.00 Aortic Valve AoV Pk Esvin: 1.61 AoV Mn Esvin: 1.08 AoV VTI: 0.32 AoV Pk Grad: 10.00 Aov Mn Grad: 5.00 ANGEL Cont.VTI: 2.89 LVOT LVOT Pk Esvin: 0.95 LVOT Mn Esvin: 0.60 LVOT VTI: 0.21 LVOT Pk Grad: 4.00 LVOT Mn Grad: 2.00 LVOT Diam: 2.40 LVOT Area: 4.52 Diastolic Function MV Pk E: 0.71 MV Pk A: 0.49 E/A: 1.40 E'Medial: 9.14 E/E' Med: 7.70 E' Laterial: 12.80 E/E' Lat: 5.50 Right Ventricle TAPSE (mm): 31.60 TVS' Esvin: 17.30 Tricuspid Valve TR Pk Esvin: 2.44 TR Pk Grad: 24.00 RA Press: 8.00 RVSP: 32.00 Great Vessels Aorta Sinus of Valsalva: 3.53 2.0-3.5 cm Ao Asc: 4.30 2.1-3.4 cm Updated in Other Vendor System with Status of Final Ran Guzman MD electronically signed on 08/26/2024 2:28:52 PM with status of Final
== END ==
LOC: HO.CARD 07:44
PROVIDERS: PCP Nurse Practitioner Family; Visit Provider Nurse Practitioner Family
DX: R00.2 Palpitations (principal); I10 Essential (primary) hypertension; I25.10 Atherosclerotic heart disease of native coronary artery without angina pectoris; R07.89 Other chest pain
CPT/HCPCS: 93242; 93306; Q9957

== ENCOUNTER → 2024-08-25 07:47 | Outpatient (BNV) | payer MEDICARE, MEDICAID, SELFPAY | PROVIDERS: PCP Nurse Practitioner Family; Visit Provider Internal Medicine Cardiovascular Disease | DX: I51.7 Cardiomegaly (principal); I35.8 Other nonrheumatic aortic valve disorders | CPT/HCPCS: 93306 ==

== ENCOUNTER 2024-09-04 08:44 | Outpatient (AMB) | payer MEDICARE, MEDICAID, SELFPAY ==
[2024-09-04 08:47] VITALS: BP 122/66; PULSE 78; O2SAT 98; BMI 32.5
--- NOTE | 2024-09-04 08:47 | A.OFFPC_ITS ---
Vital Signs 09/04/24 08:47 Height 5 ft 11.5 in Weight 236 lb BMI 32.5 BP 122/66 Blood Pressure Location Rt brachial Position Sitting Pulse 78 Pulse Source Pulse Oximeter Pulse Oximetry (%) 98 Intake Visit Reasons: transfer from [facility] Intake Note: pt is here to [facility], transfer from [facility]. hx of HTN [employer] Attendant Required: No Accompanied by: Self / Same As Patient Allergies No Known Allergies Allergy (Verified 09/04/24 09:15) Medication List - Last Reconciled 09/04/24 by Raymond Antonio DB2 DEVELOPER- albuterol sulfate 90 mcg/actuation 2 puffs inhalation Q6H PRN amlodipine 10 mg PO DAILY apple cider vinegar mg PO ascorbate calcium (vitamin C) 500 mg PO DAILY cetirizine (All Day Allergy (cetirizine)) 10 mg PO DAILY fluticasone propionate 50 mcg/actuation (Allergy Relief (fluticasone)) 2 sprays intranasal DAILY methadone 28 mg PO QDAY omeprazole 20 mg PO BID testosterone cypionate 200 mg IM Q4W valsartan-hydrochlorothiazide 320-12.5 mg 1 tab PO DAILY Tobacco use date assessed: 09/04/24 Fall risk assessment: No Falls in past year Last assessed Fall Risk: 09/04/24 Dental Screening Dental Screen Date: 09/04/24 Did you have a dental visit in the last 12 months?: Yes Did you have a dental problem in the last 6 months where you did not have access to dental care?: No Was dental information given to patient?: Patient has dentist HPI transfer from [facility] HPI Details Chief Complaint I have persistent nasal congestion and postnasal drip. History of Present Illness The patient is a 63-year-old male presenting with persistent nasal congestion and postnasal drip. He reports these symptoms have been significant for an unspecified duration and described the nasal congestion as a continual annoyance. The patient denies associated symptoms such as chest pain, shortness of breath, headache, or blurred vision. He has a history of hypertension that has been well-managed, and his blood pressure remains reasonably controlled. The patient has a history of long-term cocaine use but states he no longer uses cocaine. He is currently on methadone maintenance treatment and receives testosterone supplementation with follow-up care scheduled with urology. Prior interventions for nasal congestion reportedly include instructions on medication usage without specifics provided in the conversation. Social History - Former cocaine use history; currently abstinent from cocaine. - On methadone maintenance therapy. - Never smoked tobacco. Health Maintenance Review of Systems - General: Denies headache, blurred visi on, shortness of breath, chest pain. - Respiratory: Denies shortness of breat h. - Neurological: Denies headache, blurred vision. Physical Exam General: Cooperative, healthy appearing, comfortable, no acute distress and well developed Orientation: Patient oriented x3 Limitations: No limitations Head: Normal to inspection, but scattered lesions throughout the scalp Ears: Hearing grossly normal bilaterally, but scattered lesions on the antihelix of the upper part of the ears Nose: Normal external nose present, but patient reports nasal congestion and postnasal drip Face and sinus: Normal facial exam, but macular discoloration noted Eyes: Appearance normal, both eyes and all related structures Neck: Normal visual inspection and Yes full ROM Respiratory: Normal respiratory effort and able to speak in complete sentences. Clear to auscultation bilaterally Cardiovascular: Regular rate and rhythm. Normal S1 and S2 GI: Normal to inspection. Soft to palpation and nontender Skin: Scattered lesions noted on the scalp and ears Neuro: Patient oriented x3 Extremities: Normal to inspection Results - Imaging: CAT scan of sinuses performed (please see report). Plan - Refill testosterone prescription until urology follow-up. - Refer to dermatology for evaluation of scalp and antihelix lesions. - Increase cetirizine dosage to 20 mg da daisy. - Referral to ENT for comprehensive nasa l evaluation, especially considering past cocaine use. - Continue monitoring of hypertension; c urrent management appears effective. Patient was informed and verbally consented to the use of an ambient scribe for clinic note documentation during this visit. Discussion Notes I discussed the continuation of testosterone therapy pending a urology follow-up for further supplementation and monitoring. I will refill his current prescription until this appointment. We reviewed symptoms and treatment options for chronic nasal congestion, adjusting his current cetirizine dosage. I also emphasized the importance of evaluating the nasal pathways, particularly in the context of his history of cocaine use, warranting a referral to an ENT specialist. Dermatological assessment was deemed necessary for his scattered lesions, so a referral to dermatology was made. Follow-up visits will be scheduled to monitor his hypertension and adjust treatment as necessary. Patient Instructions - Increase cetirizine dosage to 20 mg da daisy for nasal congestion. - Continue current hypertension manageme nt as directed. - Attend referrals to ENT and dermatolog y specialists as scheduled. - Follow up with urology as planned for testosterone therapy continuation. - Return for future appointments to maeve garcia blood pressure and symptoms. [facility] Medical History Hypertension Chest congestion GERD (gastroesophageal reflux disease) Axonal sensorimotor neuropathy Surgical History S/P left knee arthroscopy History of right hip replacement Family History Mother CHF (congestive heart failure) Social History Housing: House Alcohol intake: current Alcohol intake frequency: holidays/special occasions only Comment: once a month Patient Tobacco Use Status: Never used Tobacco e-Cigarette/Vaping Use: Never Used Second Hand Smoke Exposure: No service: No Current occupational status: disabled Cognitive needs: No Hearing needs: No Vision needs: No Questionnaire PHQ-9 Over the last 2 weeks, how often have you been bothered by any of the following problems? 1. Little interest or pleasure in doing things: not at all 2. Feeling down, depressed, or hopeless: several days 3. Trouble falling or staying asleep, or sleeping too much: not at all 4. Feeling tired or having little energy: not at all 5. Poor appetite or overeating: not at all 6. Feeling bad about yourself - or that you are a failure or have let yourself or your family down: several days 7. Trouble concentrating on things, such as reading the newspaper or watching television: not at all 8. Moving or speaking so slowly that other people could have noticed. Or the opposite - being so fidgety or restless that you have been moving around a lot more than usual: not at all 9. Thoughts that you would be better off or of hurting yourself in some way: not at all Total score: 2 Depression Screening Interpretation: Negative Depression Screening Done: Yes 17173 - PHQ-9 Billing: Yes Source: Developed by Drs. Anurag Miranda, Pari Garzon, Rosales Okaley and colleagues, with an educational pao from [employer]. Thrive Questionnaire Date Thrive assessed: 09/04/24 I am a: Patient What is your living situation today?: I have a steady place to live Within the past 12 months, did the food you bought not last and you didn't have the money to get more?: Sometimes True Within the past 12 months, did you worry whether your food would run out before you got money to buy more?: Sometimes True Do you have trouble paying for medicines?: No Do you have trouble getting transportation to medical appointments?: No Do you have trouble paying your heating and electricity bill?: Yes Do you have trouble taking care of your child, family member or friend?: No Do you have trouble with day-to-day activities such as bathing, preparing meals, shopping, managing finances, etc.?: No Are you currently unemployed and looking for a job?: No Are you interested in more education?: No Please select the resources that you would like help with: Food Currently or been in a relationship where the following occur: No concerns reported THRIVE Score: 3 AUDIT C Alcohol Use Questionnaire (AUDIT-C) 1. How often do you have a drink containing alcohol?: Monthly or less 2. How many drinks containing alcohol do you have on a typical day when you are drinking?: 1 or 2 3. How often do you have six or more drinks on one occasion?: Never Total Score: 1 Score Reviewed/Action Taken: Yes NATALIIA-7 AMB Questionnaire NATALIIA-7 Date NATALIIA - 7 assessed: 09/04/24 Feeling nervous, anxious, or on edge: 0 = Not at all Not being able to stop or control worryin = Not at all Worrying too much about different things: 0 = Not at all Trouble relaxin = Not at all Being so restless that it is hard to sit still: 1 = Several days Becoming easily annoyed or irritable: 0 = Not at all Feeling afraid as if something awful might happen: 0 = Not at all Total NATALIIA-7 score (0-4 normal; 5-9 mild; 10-14 moderate; 15-21 severe): 1 Source: Developed by Drs. Anurag Miranda, Pari Garzon, Rosales Oakley and colleagues, with an educational pao from [employer]. NATALIIA-7 Assessment Billing NATALIIA-7 Assessment Tool: NATALIIA-7 Assessment 17841 Physical exam (Primary Care) Vital Signs: Last Vital Signs Pulse 78 09/04/24 08:47 BP 122/66 09/04/24 08:47 Pulse Ox 98 09/04/24 08:47 BMI result Body Mass Index 32.5 Tobacco/Smoking Status: Tobacco use Status Tobacco use date assessed 09/04/24 09/04/24 08:48 Patient Tobacco Use Status Never used Tobacco 09/04/24 08:48 e-Cigarette/Vaping Use Never Used 09/04/24 08:48 PHQ-9: PHQ-9 Score PHQ-9: Total score 2 09/04/24 09:23 Depression Screening Interpretation: Negative Thrive Assessment: Date of Thrive Assessment Date Thrive assessed 09/04/24 09/04/24 08:48 Currently or been in a relationship where the following occur: No concerns reported Office Procedures Flu Questionnaire Does the patient have a severe egg allergy?: No Does the patient have severe life threatening allergies?: No Does the patient have a fever or illness today?: No Has the patient ever had Guillain-[place] Syndrome?: No Has the patient ever had any past reaction to a flu shot?: No Immunizations Fluarix Triv [id number] (PF) 45 mcg (15 mcg x 3)/0.5 mL IM syringe Performing Provider: CEDRIC Vanessa Performing Location: [facility] Administered by: Travon Vaughn CMA on 09/04/24 09:33 Dose Route Admin Location Dispensed Lot Number Expiration Date [facility] Spray Painting Machine Operator 0.5 mL IM Right Deltoid 0.5 mL [id number] 02/19/25 [id number] [employer] VIS Given Date VIS Provided VIS Publication Date 09/04/24 Single Vaccine 21 Eligibility Eligibility Date Funding Source Not [facility] Eligible 09/04/24 Private Coding Level of Care Code Est Pt Level 4 (85142) Diagnoses Post-nasal drip R09.82 Hypertension, unspecified type I10 Hypertension type: unspecified Screening for prostate cancer Z12.5 Skin lesions L98.9 Additional Codes NATALIIA-7 Assessment Billing - NATALIIA-7 Assessment Tool: NATALIIA-7 Assessment 57364 ([id number]) PHQ-9 - 46658 - PHQ-9 Billing: Yes ([id number]) Assessment & Plan Assessment & Plan (1) Post-nasal drip: Comment: Will give Flonase and Zyrtec. Code(s): R09.82 - Postnasal drip Category: Medical (2) Hypertension: Code(s): I10 - Essential (primary) hypertension Category: Medical Qualifiers: Hypertension type: unspecified Qualified Code(s): I10 - Essential (primary) hypertension (3) Screening for prostate cancer: Code(s): Z12.5 - Encounter for screening for malignant neoplasm of prostate Category: Medical (4) Skin lesions: Code(s): L98.9 - Disorder of the skin and subcutaneous tissue, unspecified Category: Medical Plan . Orders: Orders Complete Blood Count Auto Diff Today I10 - Essential (primary) hypertension TSH reflex Free T4 Today I10 - Essential (primary) hypertension Prostate Specific Antigen Scr Today Z12.5 - Encounter for screening for malignant neoplasm of prostate Comprehensive [place]. Panel Fast Today I10 - Essential (primary) hypertension UA CC w/rflx Micro + Cult Today I10 - Essential (primary) hypertension Lipid Panel Today I10 - Essential (primary) hypertension Influenza [id number] Immunization Today Z23 - Encounter for immunization Referrals Ear/Nose/Throat Referral R09.82 - Postnasal drip Dermatology Referral L98.9 - Disorder of the skin and subcutaneous tissue, unspecified Medications: New Fluarix Triv [id number] (PF) (flu vacc [id number] 6mos up(PF)) 0.5 mL IM ONCE 0.5 mL 0RF NS Z23 - Encounter for immunization Refilled testosterone cypionate 200 mg IM Q4W 1 mL 0RF
== END 2024-09-04 10:39 | disposition home or self-care (01) ==
PROVIDERS: Visit Provider Nurse Practitioner Family
DX: R09.82 Postnasal drip (principal); I10 Essential (primary) hypertension; Z12.5 Encounter for screening for malignant neoplasm of prostate; L98.9 Disorder of the skin and subcutaneous tissue, unspecified; Z23 Encounter for immunization

== ENCOUNTER → 2024-09-04 08:44 | Outpatient (BNVA) | payer MEDICARE, MEDICAID, SELFPAY | PROVIDERS: Visit Provider Nurse Practitioner Family | DX: I10 Essential (primary) hypertension (principal); R09.82 Postnasal drip; L98.9 Disorder of the skin and subcutaneous tissue, unspecified; Z23 Encounter for immunization | CPT/HCPCS: 90471; 90656; 96127; 99212 ==

== ENCOUNTER 2024-09-05 06:05 | Outpatient (REF) | payer MEDICARE, MEDICAID, SELFPAY ==
[2024-09-05 10:00] LABS: Appearance Urine Clear; Color Urine Yellow; Glucose Urine UA Negative (Negative); Leukocyte Esterase Urine Negative (Negative); MANUAL DIFF FLAG NO; Nitrite Urine Negative (Negative); Urine Blood Negative (Negative); Urine Ketones Negative (Negative); Urine Protein Negative (Neg-Trace)
[2024-09-05 10:03] LABS: Basophils Percent Auto 0.3 % (0-2); Eosinophils Absolute Auto 0.1 X10*3/uL (0.0-0.4); Eosinophils Percent Auto 1.5 % (0-4); Hematocrit 46.8 % (42.0-52.0); Hemoglobin 15.3 g/dl (14.0-18.0); Imm Gran Abs Auto 0.01 X10*3/uL (0.00-0.03); Imm Gran Pct Auto 0.1 % (0.0-0.4); Lymphocytes Absolute Auto 1.9 X10*3/uL (1.2-4.9); Lymphocytes Percent Auto 28.7 % (20-40); Mean Corpuscular HGB Conc 32.7 g/dl (31.0-36.0); Mean Corpuscular Hemoglobin 29.7 pg (27.0-33.0); Mean Corpuscular Volume 90.7 fL (80.0-98.0); Mean Platelet Volume 9.8 fL (9.4-12.4); Monocytes Absolute Auto 0.6 X10*3/uL (0.1-1.2); Monocytes Percent Auto 8.5 % (2-11); Neutrophils Absolute Auto 4.1 x10*3/uL (2.0-8.3); Neutrophils Percent Auto 60.9 % (45-73); Platelet Count 268 X10*3/uL (160-400); Red Blood Count 5.16 X10*6/uL (4.60-5.80); Red Cell Distribution Width 13.1 % (11.0-16.0); White Blood Count 6.7 X10*3/uL (4.8-10.8)
[2024-09-05 10:47] LABS: Alanine Aminotransferase 18 U/L (0-40); Albumin Level 4.5 g/dL (3.5-5.0); Alkaline Phosphatase 74 U/L (39-117); Anion Gap 9 (12-20); Aspartate Amino Transferase 24 U/L (5-37); Blood Urea Nitrogen 19 mg/dL (9-16); Calcium 9.4 mg/dL (8.4-10.2); Carbon Dioxide 29 mmol/L (22-29); Chloride 107 mmol/L (96-108); Cholesterol 202 mg/dL (<200); Estimated Glomerular Filt Rate > 60; Glucose Fasting 85 mg/dL (60-99); HDL Cholesterol 41 mg/dL (>40); LDL Cholesterol Calculated 126 mg/dL (<100); Sodium 141 mmol/L (135-145); Total Protein 8.1 g/dL (6.5-8.0); Triglycerides 177 mg/dL (<150)
[2024-09-05 10:49] LABS: TSH reflex Free T4 2.34 uIU/mL (0.32-4.0)
== END 2024-09-05 06:06 | disposition home or self-care (01) ==
LOC: HO.HMGCLDS 06:05
PROVIDERS: PCP Nurse Practitioner Family; Visit Provider Nurse Practitioner Family
DX: I10 Essential (primary) hypertension (principal); Z12.5 Encounter for screening for malignant neoplasm of prostate
CPT/HCPCS: 36415; 80053; 80061; 81003; 84153; 84443; 85025

== ENCOUNTER 2024-10-13 07:29 | Outpatient (AMB) | payer MEDICARE, MEDICAID, SELFPAY ==
--- OUTSIDE RECORDS SUMMARY | 2024-10-13 07:31 | XMS_ITS | Clinical Summary ---
Author Organization [facility] it Address [address] [place] [address] Care Team Providers Care Manager New Product Name Role Phone Isidro Stanford MD Primary Care Provider [phone] Surgical History Surgery Date Site/Laterality Comments HIP SURGERY PROCEDURE:HIP SURGERY Medical History Medical History Date Comments High blood pressure DX:High bloo d pressure Osteoarthritis DX:Osteoarthriti s Family History Medical History Relation Name Comments Arthritis Mother Arthritis Sister Relation Name Status Comments Mother Sister Social History Tobacco Use Types Packs/Day Years Used Date Smoking Tobacco: Never Smokeless Tobacco: Never Alcohol Use Standard Drinks/Week Comments Not Currently 0 (1 standard drink = 0.6 oz pur e alcohol) Sex and Gender Information Value Date Recorded Sex Assigned at Not on file Legal Sex Male 2:12 AM EST Gender Identity Not on file Sexual Orientation Not on file Obstetrics History Last Filed Vital Signs Vital Sign Reading Time Taken Comments Blood Pressure 145/78 07/06/2023 11:30 AM EST Pulse 64 07/06/2023 11:30 AM EST Temperature - - Respiratory Rate - - Oxygen Saturation - - Inhaled Oxygen Concentration - - Weight 123 kg (271 lb) 07/06/2023 11:03 AM EST Height 177.8 cm (5' 10 ) 07/06/2023 11:03 AM EST Body Mass Index 38.88 07/06/2023 11:03 AM EST Plan of Treatment Health Maintenance Due Date Last Done Comments DTaP,Tdap,and Td Vaccines (1 - Tdap) 12/08/1978 Pneumococcal Vaccine: 50+ Years (1 of 1 - PCV) 12/08/2009 Zoster Vaccines (1 of 2) 12/08/2009 Cholesterol Screening (Lipid Panel) 07/30/2022 Colorectal Cancer Screening: Colonoscopy 07/30/2022 Depression Screening 07/30/2022 HIV Screening 07/30/2022 Hepatitis C Screening 07/30/2022 Medicare Annual Wellness Visit 07/30/2022 Social Influencers of Health Screening 07/30/2022 Hypertension/CHF/CAD Annual BMP Blood Test 07/31/2022 COVID-19 Vaccine ( season) 2024 11/04/2021, 10/25/2020, 09/27/2020 Influenza Vaccine (#1) 2024 , 06/08/2019, 06/08/2018, Additional history exists RSV Immunization Patients 60+ Years Old (1 - 1-dose 75+ series) 12/08/2034 HIB Vaccines Aged Out No longer eligi ble based on patient's age to complete this topic HPV Vaccines Aged Out No longer eligi ble based on patient's age to complete this topic Hepatitis A Vaccines Aged Out No long er eligible based on patient's age to complete this topic Hepatitis B Vaccines Aged Out No long er eligible based on patient's age to complete this topic IPV Vaccines Aged Out No longer eligi ble based on patient's age to complete this topic MMR Vaccines Aged Out No longer eligi ble based on patient's age to complete this topic Meningococcal ACWY Vaccine Aged Out N o longer eligible based on patient's age to complete this topic Meningococcal B Vacine Aged Out No lo nger eligible based on patient's age to complete this topic Pneumococcal Vaccine: Pediatrics (0 to 5 Years) and At-Risk Patients (6 to 64 Years) Aged Out No longer eligible based on patient's age to complete this topic RSV Immunization Patients Under 20 months Aged Out No longer eligible based on patient's age to complete this topic Varicella Vaccines Aged Out No longer eligible based on patient's age to complete this topic Care Teams Manager New Product Relationship Specialty Start Date End Date Isidro Stanford MD PCP - General Internal Medicine 07/10/15
--- OUTSIDE RECORDS SUMMARY | 2024-10-13 07:32 | XMS_ITS | Clinical Summary ---
Author Organization [facility] Address [address] [place] [address] Care Team Providers Care Print Production Associate Name Role Phone Isidro Stanford MD Primary Care Provider Unavailab le Allergies Active Allergy Reactions Criticality Noted Date Comments Meloxicam 07/06/2023 Nausea, abdominal pain Medications Medication Sig Dispensed Refills Start Date End Date Status methadone (DOLOPHINE) 10 MG tablet Take 41 mg by mouth daily. 0 Active APPLE CIDER VINEGAR PO Take by mouth. 0 Active Zinc 10 MG LOZG Use as directed in the mouth or throat. 0 Active Calcium Carbonate-Vit D-Min (CALCIUM 1200 PO) Take by mouth. 0 Act akbar valsartan-hydroCHLOR Othiazide (Diovan HCT) 320-12.5 MG per tablet Take 1 tablet by mouth daily. 90 tablet 1 07/06/2023 Active testosterone cypionate (DEPO-TESTOSTERONE CYPIONATE) injection 200 mg/mL Inject 1 mL (200 mg total) into the muscle every 21 days. 12 mL 2 09/21/2023 Active amLODIPine (NORVASC) tablet 5 mg TAKE 1 TABLET (5 MG TOTAL) BY MOUTH DAILY. 30 tablet 1 10/03/2023 Active Active Problems Problem Noted Date Diagnosed Date PVD (peripheral vascular disease) 06/05/2021 History of COVID-19 10/03/2020 History of echocardiogram 05/03/2020 Chronic pain of right lower extremity 07/27/2019 History of hip replacement, total, right 019 Class 3 severe obesity due t o excess calories with serious comorbidity and body mass index (BMI) of 40.0 to 44.9 in adult 08/26/2018 Chronic left shoulder pain 08/12/2017 Opioid dependence in remission 06/16/2017 Mixed hyperlipidemia 06/16/2017 Essential hypertension 06/16/2017 Hypotestosteronism 06/16/2017 Resolved Problems Problem Noted Date Diagnosed Date Resolved Date COVID-19 virus infection 08/21/2020 Thoracic aortic aneurysm without rupture 08/26/2018 05/03/2020 Immunizations Name Administration Dates Next Due Covid-19 (Moderna 12+) 100mcg/0.5mL dosage 11/04,10/25/2020,09/27/2020 Influenza Quad (Afluria/Fluz one) 0.5mL >=6mon Vial (SD-IIV4) 07/02/2020,06/08/2019,06/08/2018 Influenza Quad (Flucelvax) 0 .5mL >6mon (ccIIV4) 06/16/2017 Family History Medical History Relation Name Comments Arthritis Mother Arthritis Sister Relation Name Status Comments Mother Sister Social History Tobacco Use Types Packs/Day Years Used Date Smoking Tobacco: Never Smokeless Tobacco: Never Alcohol Use Standard Drinks/Week Comments Not Currently 0 (1 standard drink = 0.6 oz pur e alcohol) Rare Sex and Gender Information Value Date Recorded Sex Assigned at Not on file Gender Identity Not on file Sexual Orientation Not on file Job Start Date Occupation Industry Not on file Not on file Not on file Last Filed Vital Signs Vital Sign Reading Time Taken Comments Blood Pressure 145/78 07/06/2023 11:30 AM EST Pulse 64 07/06/2023 11:30 AM EST Temperature 37.2 ??C (99 ??F) 07/06/2023 11:03 AM EST Respiratory Rate - - Oxygen Saturation 98% 07/06/2023 11:03 AM EST Inhaled Oxygen Concentration - - Weight 122.9 kg (271 lb) 07/06/2023 11:03 AM EST Height 177.8 cm (5' 10 ) 07/06/2023 11:03 AM EST Body Mass Index 38.88 07/06/2023 11:03 AM EST Plan of Treatment Health Maintenance Due Date Last Done Comments Hepatitis C Screening 1960 BMI Counseling 12/08/1977 DTap / Tdap / Td (1 - Tdap) 12/08/1978 Colon Cancer Screening (Colonoscopy) 12/08/2004 Shingrix-Zoster Vaccine (1 of 2) 12/08/2009 Depression Screening 11/10/2023 11/09/2022, 09/10/2021, 05/03/2020, Additional history exists COVID-19 Vaccine ( season) 2024 11/04/2021, 10/25/2020, 09/27/2020 Influenza Vaccine (#1) 2024 , 07/02/2020, 06/08/2019, Additional history exists Preventative Health Evaluation 07/06/2024 07/06/2023, 06/08/2022, 06/05/2021, Additional history exists Pneumococcal Vaccine (1 of 1 - PCV) 12/08/2024 RSV Adult > 60+ Yrs or (1 - 1-dose 75+ series) 12/08/2034 Hepatitis B Vaccines Aged Out No long er eligible based on patient's age to complete this topic Pneumococcal Vaccine Aged Out No long er eligible based on patient's age to complete this topic RSV Ped < 20 months Aged Out No longe r eligible based on patient's age to complete this topic Care Teams Print Production Associate Relationship Specialty Start Date End Date Isidro Stanford MD PCP - General Internal Medicine 07/10/15
--- NOTE | 2024-10-13 08:02 | A.OFFVIS_ITS ---
Vital Signs 10/13/24 08:15 Height 5 ft 11 in Weight 238 lb 15.697 oz BMI 33.3 BP 136/66 Blood Pressure Location Rt brachial Position Sitting Pulse 74 Pulse Source Pulse Oximeter Pulse Oximetry (%) 95 Oxygen Delivery Method Room Air Intake Visit Reasons: [place] screening Intake Note: NEW PATIENT for recall colonoscopy. 2nd lifetime. Prev cologuard 07/2020. Chief Complaint; C/O recent worsening dysphagia. Pt denies any burning specific sx of GERD but does report some consistent dryness of his throat and is going to be seeing ENT soon for more information. Pt would like to have EGD performed as well if possible. Pt states that his GERD is otherwise well controlled with omeprazole PRN and diet changes. Denies other sx. Pharmacy verified? [facility]. Archeology Professor Required: No Allergies No Known Allergies Allergy (Verified 10/13/24 08:02) HPI HPI [place] screening: Details: 63 year old? male with past medical history of dyslipidemia, hypertension is here today for pre colonoscopy screening.? Patient was sent to us by his PCP.? Last colonoscopy in 2009, patient had normal colonoscopy then. Patient had negative Cologuard in 2019.? Patient reports acid reflux and occasional trouble swallowing. Patient takes omeprazole as needed. Changed his diet and is doing better. Patient will have cardiac stress test next month. He was complaining of left chest pressure and cardiac testing and referral was ordered. Patient reports that now that he is controlling his acid reflux his chest pain got much better.? Will get clearance from Cardiology before procedure. Denies any personal or family history of gastrointestinal disease, colon polyps, or CRC.? Denies history of difficulty with sedation or anesthesia in the past.? Negative for history of sleep apnea.? Denies any history of cardiac, renal, pulmonary, or hepatic disease.?? No history of infectious? diseases like hepatitis A, B, C, HIV or tuberculosis.? Patient is not on any anticoagulation [facility] Medical History Hypertension Chest congestion GERD (gastroesophageal reflux disease) Axonal sensorimotor neuropathy Surgical History S/P left knee arthroscopy History of right hip replacement Family History Mother CHF (congestive heart failure) Social History Housing: House Alcohol intake: current Alcohol intake frequency: holidays/special occasions only Comment: once a month Patient Tobacco Use Status: Never used Tobacco e-Cigarette/Vaping Use: Never Used Second Hand Smoke Exposure: No service: No Current occupational status: disabled Cognitive needs: No Hearing needs: No Vision needs: No Review of Systems Const Denies weight gain and Denies weight loss ENT Reports no additional complaints, Denies dysphagia and Denies odynophagia Card Reports no additional complaints Resp Reports no additional complaints GI Denies abdominal pain, Denies belching, Denies melena, Denies bloating, Denies change in bowel habits, Denies dysphagia, Denies excessive flatus, Denies dyspepsia, Denies heartburn, Denies diarrhea, Denies loose stools, Denies nausea, Denies odynophagia and Denies vomiting Reports no additional complaints Musc Reports no additional complaints Neuro Reports no additional complaints Psych Reports no additional complaints Endo Reports no additional complaints Physical Exam Vital Signs: Last Vital Signs Pulse 74 10/13/24 08:15 BP 136/66 10/13/24 08:15 Pulse Ox 95 10/13/24 08:15 Oxygen Delivery Method Room Air 10/13/24 08:15 BMI result Body Mass Index 33.3 Const General: healthy appearing, no acute distress and well developed Nutritional Appearance: well nourished Orientation/consciousness: patient oriented x3 Resp Effort & Inspection: normal respiratory effort, able to speak in complete sentences, no tracheal deviation and symmetric chest movement Auscultation: clear to auscultation bilaterally Cardio Rate: regular rate GI Inspection: Yes normal to inspection and No distended Palpation (GI): Soft to palpation, not firm, nontender and No hepatosplenomegaly present Auscultation: normal bowel sounds General: Yes no CVA tenderness Back/Spine/Pelvis Back: no CVA tenderness Skin General skin exam: elasticity normal, turgor normal and dry skin Neuro General: patient oriented x3 Psych Appearance: grossly normal Mental Status: mental status grossly normal Assessment & Plan Assessment & Plan (1) Screen for colon cancer: Code(s): Z12.11 - Encounter for screening for malignant neoplasm of colon Plan Patient denies any cardiac or respiratory symptoms.? Patient reports dysphagia and acid reflux. Controlled with omeprazole fairly well. Patient changed his diet and is doing better. Patient will go for upper endoscopy to re-evaluate for gastritis, esophagitis. Patient has stress test next month we will call Cardiology for clearance. Denies any issues with anesthesia in the past.? Denies any history of sleep apnea.? No history infectious diseases in the past or present.? Not on any anticoagulation therapy.? No family or personal history of colon cancer or polyps.? Patient denies melena, hematochezia, unintentional weight loss or ribbon like stools.? Discussed at length the pre-procedure,? prep, diet & medications as well as what to expect prior, during and after the procedure.?? Stressed the importance of good bowel prep.? Recommended the use of Vaseline or Calmoseptine OTC & baby wipes with bowel movements to promote comfort.? ?Patient verbalizes understanding and agrees to plan of care.? He was given the opportunity to ask questions and all questions answered.? We will see him after the procedure.? Medications: New bisacodyl (Dulcolax (bisacodyl)) take 4 tabs at noon the day before your colonoscopy 20 mg (4 x 5 mg) PO ONCE 1 day 4 tabs 0RF Z12.11 - Encounter for screening for malignant neoplasm of colon polyethylene glycol 3350 (Miralax) As directed by gastro[facility]ology department at [facility] 238 grams PO ONCE 238 grams 0RF Z12.11 - Encounter for screening for malignant neoplasm of colon Coding Level of Care Code New Pt Level 3 (98282) Diagnoses Screen for colon cancer Z12.11 Time Spent (min) 40 Comment 30 minutes spent with patient and additional 10 minutes spent reviewing his records
[2024-10-13 08:15] VITALS: BP 136/66; PULSE 74; O2SAT 95; BMI 33.3
== END 2024-10-13 08:40 | disposition home or self-care (01) ==
PROVIDERS: Visit Provider Nurse Practitioner Family
DX: Z01.818 Encounter for other preprocedural examination (principal); Z12.11 Encounter for screening for malignant neoplasm of colon
CPT/HCPCS: 99024

== ENCOUNTER → 2024-10-13 07:29 | Outpatient (BNVA) | payer MEDICARE, MEDICAID, SELFPAY | PROVIDERS: Visit Provider Nurse Practitioner Family | DX: Z12.11 Encounter for screening for malignant neoplasm of colon (principal) | CPT/HCPCS: 99212 ==

== ENCOUNTER 2024-10-16 14:19 | Outpatient (AMB) | payer MEDICARE, MEDICAID, SELFPAY ==
--- NOTE | 2024-10-16 14:28 | A.OFFVIS_ITS ---
Intake Visit Reasons: testicular hypofunction Intake Note: Patient is present for testicular hypofunction Urology Medication:none Antibiotic Allergy:none Blood Thinner:none Machinery Dismantler Required: No Allergies No Known Allergies Allergy (Verified 10/16/24 14:29) PFS Medical History Hypertension Chest congestion GERD (gastroesophageal reflux disease) Axonal sensorimotor neuropathy Surgical History S/P left knee arthroscopy History of right hip replacement Family History Mother CHF (congestive heart failure) Social History Housing: House Alcohol intake: current Alcohol intake frequency: holidays/special occasions only Comment: once a month Patient Tobacco Use Status: Never used Tobacco e-Cigarette/Vaping Use: Never Used Second Hand Smoke Exposure: No service: No Current occupational status: disabled Cognitive needs: No Hearing needs: No Vision needs: No Review of Systems Const All systems reviewed & are unremarkable except as noted in HPI and below Reports no additional complaints Eyes Reports no additional complaints ENT Reports no additional complaints Card Reports no additional complaints Resp Reports no additional complaints GI Reports no additional complaints Reports as per HPI Musc Reports no additional complaints Skin/Breast Reports system reviewed and no additional complaints, except as documented Neuro Reports no additional complaints Psych Reports no additional complaints Endo Reports no additional complaints Renny/Lymph Reports no additional complaints Aller/Immun Reports no additional complaints Results AMB Urinalysis, Automated UA Leukoctes 0 Eyad/uL Last Edit by JASVIR Juarez on 10/16/24 14:43 UA Nitrite Negative Last Edit by JASVIR Juarez on 10/16/24 14:43 UA Urobilinogen 0.2 mg/dL Last Edit by JASVIR Juarez on 10/16/24 14:4 3 UA Protein 0 mg/dL Last Edit by JASVIR Juarez on 10/16/24 14:43 UA pH 6.0 Last Edit by JASVIR Juarez on 10/16/24 14:43 UA Blood 0 Kane/uL Last Edit by JASVIR Juarez on 10/16/24 14:43 UA Specific Dunbar 1.010 Last Edit by JASVIR Juarez on 10/16/24 14: 43 UA Ketone Negative Last Edit by JASVIR Juarez on 10/16/24 14:43 UA Bilirubin 0 mg/dL Last Edit by JASVIR Juarez on 10/16/24 14:43 UA Glucose 0 mg/dL Last Edit by JASVIR Juarez on 10/16/24 14:43 Results Reviewed Results Reviewed: Laboratory Last Values Urine pH (Auto) 6.0 10/16/24 14:43 Specific Dunbar (Auto) 1.010 10/16/24 14:43 Urine Protein (Auto) 0 mg/dL 10/16/24 14:43 Glucose (UA)(Auto) 0 mg/dL 10/16/24 14:43 Urine Ketones (Auto) Negative 10/16/24 14:43 Urine Blood (Auto) 0 Kane/uL 10/16/24 14:43 Urine Nitrite (Auto) Negative 10/16/24 14:43 Urine Bilirubin (Auto) 0 mg/dL 10/16/24 14:43 Urine Urobilinogen (Auto) 0.2 mg/dL 10/16/24 14:43 Leukocyte Esterase (Auto) 0 Eyad/uL 10/16/24 14:43 Assessment & Plan Assessment & Plan (1) Hypogonadism in male: Code(s): E29.1 - Testicular hypofunction Category: Medical (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, unspecified, uncomplicated Category: Medical (3) Long-term current use of testosterone replacement therapy: Code(s): Z79.890 - Hormone replacement therapy Category: Medical Orders: Orders Hematocrit Today Z79.890 - Hormone replacement therapy Glucose Fasting Today E29.1 - Testicular hypofunction AMB Urinalysis Automated Today Z13.9 - Encounter for screening, unspecified Lutenizing Hormone Today E29.1 - Testicular hypofunction Follicle Stimulating Hormone Today E29.1 - Testicular hypofunction Testosterone, Free/Total Today E29.1 - Testicular hypofunction Prolactin Today E29.1 - Testicular hypofunction, Z79.890 - Hormone replacement therapy Medications: Refilled testosterone cypionate 200 mg IM Q4W 1 mL 0RF Coding Diagnoses Hypogonadism in male E29.1 Methadone use F11.90 Long-term current use of testosterone replacement therapy Z79.890 IIEF-5 Questionnaire IIEF-5 How do you rate your confidence that you could get and keep an erection?: 4-High When you had erections with sexual stimulation, how often were your erections hard enough for penetration?: Almost always/ always During sexual intercourse, how often were you able to maintain your erection after your had penetrated(entered) your partner?: Sometimes(about half the time) During sexual intercourse, how difficult was it to maintain your erection to completion of intercourse?: Slightly Difficult When you attempted sexual intercourse, how often was it satisfactory for you?: Sometimes(about half the time) IIEF-5 Score IIEF-5 Score: 19
--- OUTSIDE RECORDS SUMMARY | 2024-10-16 16:29 | XMS_ITS | Clinical Summary ---
Author Organization [facility] it Address [address] [place] [address] Care Team Providers Care Skiver Welt End Name Role Phone Isidro Stanford MD Primary Care Provider [phone] Surgical History Surgery Date Site/Laterality Comments HIP [...] age to complete this topic Care Teams Skiver Welt End Relationship Specialty Start Date End Date Isidro Stanford MD PCP - General Internal Medicine 07/10/15
--- OUTSIDE RECORDS SUMMARY | 2024-10-16 16:29 | XMS_ITS | Clinical Summary ---
Author Organization [facility] Address [address] [place] [address] Care Team Providers Care Environmental Safety Specialist Name Role Phone Isidro Stanford MD Primary [...] age to complete this topic Care Teams Environmental Safety Specialist Relationship Specialty Start Date End Date Isidro Stanford MD PCP - General Internal Medicine 07/10/15
== END 2024-10-16 15:45 | disposition home or self-care (01) ==
PROVIDERS: PCP Nurse Practitioner Family; Visit Provider Urology
DX: Z13.9 Encounter for screening, unspecified (principal)

== ENCOUNTER → 2024-10-16 14:19 | Outpatient (BNVA) | payer MEDICARE, MEDICAID, SELFPAY | PROVIDERS: PCP Nurse Practitioner Family; Visit Provider Urology | DX: E29.1 Testicular hypofunction (principal); F11.20 Opioid dependence, uncomplicated; Z79.890 Hormone replacement therapy | CPT/HCPCS: 81003; 99202 ==

== ENCOUNTER 2024-10-17 06:06 | Outpatient (REF) | payer MEDICARE, MEDICAID, SELFPAY ==
--- OUTSIDE RECORDS SUMMARY | 2024-10-17 06:09 | XMS_ITS | Clinical Summary ---
Author Organization [facility] Address [address] [place] [address] Care Team Providers Care Sandblaster Stone Name Role Phone Isidro Stanford MD Primary [...] age to complete this topic Care Teams Sandblaster Stone Relationship Specialty Start Date End Date Isidro Stanford MD PCP - General Internal Medicine 07/10/15
[2024-10-17 10:10] LABS: Hematocrit 47.2 % (42.0-52.0)
[2024-10-17 10:26] LABS: Glucose Fasting 86 mg/dL (60-99)
[2024-10-18 04:08] LABS: Follicle Stimulating Hormone 27.6 mIU/mL (1.4-12.8); Lutenizing Hormone 10.7 mIU/mL (1.6-15.2); Prolactin 6.2 ng/mL (2.0-18.0)
[2024-10-24 10:58] LABS: Testosterone, Free 26.2 pg/mL (35.0-155.0); Testosterone, Total 194 ng/dL (250-1100)
== END 2024-10-17 06:07 | disposition home or self-care (01) ==
LOC: HO.HMGCLDS 06:06
PROVIDERS: PCP Nurse Practitioner Family; Visit Provider Urology
DX: E29.1 Testicular hypofunction (principal); Z79.890 Hormone replacement therapy; Z13.1 Encounter for screening for diabetes mellitus
CPT/HCPCS: 36415; 82947; 83001; 83002; 84146; 84402; 84403; 85014

== ENCOUNTER 2024-11-03 07:24 | Outpatient (AMB) | payer MEDICARE, MEDICAID, SELFPAY ==
--- NOTE | 2024-11-03 07:25 | A.OFFVIS_ITS ---
Intake Visit Reasons: 2w/labs (set) Neighborhood Planner Required: No Allergies No Known Allergies Allergy (Verified 10/16/24 14:29) Medication List - Last Reconciled 11/03/24 by Braxton Hodges MD albuterol sulfate 90 mcg/actuation 2 puffs inhalation Q6H PRN amlodipine 10 mg PO DAILY apple cider vinegar mg PO ascorbate calcium (vitamin C) 500 mg PO DAILY bisacodyl (Dulcolax (bisacodyl)) 20 mg (4 x 5 mg) PO ONCE 1 day cetirizine 10 mg PO DAILY fluticasone propionate 50 mcg/actuation (Allergy Relief (fluticasone)) 2 sprays intranasal DAILY methadone 28 mg PO QDAY omeprazole 20 mg PO BID polyethylene glycol 3350 (Miralax) 238 grams PO ONCE testosterone cypionate 200 mg IM .q2 week valsartan-hydrochlorothiazide 320-12.5 mg 1 tab PO DAILY HPI Comments Details: 11/03/24--presents for telehealth visit he is on testosterone replacement for low testosterone. I have reviewed repeat testosterone levels total testosterone 194, free testosterone 26.2, prolactin 6.2. I will increase testosterone from 200 mg once a month to 200 mg every 2 weeks. Repeat levels in 2 months. 10/16/24--Rafi is here for evaluation for low testosterone and erectile dysfunction. The patient is currently on testosterone replacement. IIEF-5 score - 19. He is on chronic methodone use. Will cont testosterone replacement and monitor levels. Check Hct. [facility] Medical History Hypertension Chest congestion GERD (gastroesophageal reflux disease) Axonal sensorimotor neuropathy Surgical History S/P left knee arthroscopy History of right hip replacement Family History Mother CHF (congestive heart failure) Social History Housing: House Alcohol intake: current Alcohol intake frequency: holidays/special occasions only Comment: once a month Patient Tobacco Use Status: Never used Tobacco e-Cigarette/Vaping Use: Never Used Second Hand Smoke Exposure: No service: No Current occupational status: disabled Cognitive needs: No Hearing needs: No Vision needs: No Review of Systems Const All systems reviewed & are unremarkable except as noted in HPI and below Reports no additional complaints Eyes Reports no additional complaints ENT Reports no additional complaints Card Reports no additional complaints Resp Reports no additional complaints GI Reports no additional complaints Reports as per HPI Musc Reports no additional complaints Skin/Breast Reports system reviewed and no additional complaints, except as documented Neuro Reports no additional complaints Psych Reports no additional complaints Endo Reports no additional complaints Renny/Lymph Reports no additional complaints Aller/Immun Reports no additional complaints Telehealth Telehealth Telehealth Platform: [employer] Location of provider rendering services: practice address Location of patient: address on file Patient Identification confirmed using: Name, : Yes Telehealth method: video Patient verbally consented to treatment: Yes Patient verbally consented to billing insurance company: Yes Patient informed of any privacy concerns related to visit: Yes Assessment & Plan Assessment & Plan (1) Hypogonadism in male: Code(s): E29.1 - Testicular hypofunction Category: Medical (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, unspecified, uncomplicated Category: Medical (3) Long-term current use of testosterone replacement therapy: Code(s): Z79.890 - Hormone replacement therapy Category: Medical (4) Low testosterone: Code(s): R79.89 - Other specified abnormal findings of blood chemistry Category: Medical Plan Increase Testosterone fu in 2 months, with repeat labs Orders: Orders Testosterone, Free/Total 2 Months R79.89 - Other specified abnormal findings of blood chemistry, Z79.890 - Hormone replacement therapy Medications: Changed From testosterone cypionate 200 mg IM Q4W 1 mL 0RF To testosterone cypionate 200 mg IM .q2 week 2 mL 1RF Patient Instructions: The patient had an opportunity to ask questions regarding treatment plan. The patient expressed understanding and agreement with the above treatment plan. The patient is aware they should contact our office by phone for worsening of their current condition or the appearance of new symptoms. Compliance is encouraged with any medications and followup testing that is ordered. It is a privilege to be allowed the opportunity to participate in the urologic care of your patient. If you have any questions or concerns regarding treatment for the above conditions please do not hesitate to contact me. The office telephone contact is [phone]. This note is constructed in part using voice recognition software. While every effort has been made to ensure accuracy purchasing manager errors may have been included. Yours sincerely, Braxton Hodges MD Coding Level of Care Code Tele Est Pt Level 4 (03415) Diagnoses Hypogonadism in male E29.1 Methadone use F11.90 Long-term current use of testosterone replacement therapy Z79.890 Low testosterone R79.89
--- OUTSIDE RECORDS SUMMARY | 2024-11-03 07:25 | XMS_ITS | Clinical Summary ---
Author Organization [facility] Address [address] [place] [address] Care Team Providers Care Solid Waste Technician Name Role Phone Isidro Stanford MD Primary [...] age to complete this topic Care Teams Solid Waste Technician Relationship Specialty Start Date End Date Isidro Stanford MD PCP - General Internal Medicine 07/10/15
--- OUTSIDE RECORDS SUMMARY | 2024-11-03 07:25 | XMS_ITS | Clinical Summary ---
Author Organization [facility] it Address [address] [place] [address] Care Team Providers Care Brim Stitcher Name Role Phone Isidro Stanford MD Primary Care Provider [phone] Surgical History Surgery Date Site/Laterality Comments HIP [...] age to complete this topic Care Teams Brim Stitcher Relationship Specialty Start Date End Date Isidro Stanford MD PCP - General Internal Medicine 07/10/15
== END 2024-11-03 11:31 | disposition home or self-care (01) ==
LOC: HO.HUSH 07:24
PROVIDERS: PCP Nurse Practitioner Family; Visit Provider Urology
DX: E29.1 Testicular hypofunction (principal); R79.89 Other specified abnormal findings of blood chemistry; Z79.890 Hormone replacement therapy; F11.90 Opioid use, unspecified, uncomplicated
CPT/HCPCS: 99214

== ENCOUNTER → 2024-11-03 07:24 | Outpatient (BNVA) | payer MEDICARE, MEDICAID, SELFPAY | PROVIDERS: PCP Nurse Practitioner Family; Visit Provider Urology ==

== ENCOUNTER → 2024-11-23 07:37 | Outpatient (REF) | payer MEDICARE, MEDICAID, SELFPAY ==
--- NOTE | 2024-11-23 07:40 | CA_ITS ---
Acquisition Time: 2024-11-23 08:10:02 Total Exercise Time: 00:05:16 Test Indications: CP, SOB Medications: SEE H&P Protocol: DOUGLAS Max HR: 137 BPM 87% of Pred: 156 BPM Max BP: 200/80 mmHG Max Work Load: 7.0 METS Exercise stress test with exercise 5 mins 16 secs of Douglas Protocol, achieving 87% MPHR, with reports of moderate SOB, no chest pain, with isolated PAcs, with hypertensive response with exercise- max BP 200/80. Without EKG changes meeting criteria for ischemia. In recovery, breathing returned to baseline. BP improved to baseline. Nuclear images pending. Test reviewed with Dr. Wilkinson. Referred By: Sara Chakraborty Electronically Signed By: True Gee
--- OUTSIDE RECORDS SUMMARY | 2024-11-23 07:40 | XMS_ITS | Clinical Summary ---
Author Organization [facility] it Address [address] [place] [address] Care Team Providers Care Compress Trucker Name Role Phone Isidro Stanford MD Primary Care Provider [phone] Surgical History Surgery Date Site/Laterality Comments HIP [...] 06/08/2019, 06/08/2018, Additional history exists RSV Immunization Adult Patients (1 - 1-dose 75+ series) 12/08/2034 HIB [...] age to complete this topic Care Teams Compress Trucker Relationship Specialty Start Date End Date Isidro Stanford MD PCP - General Internal Medicine 07/10/15
--- OUTSIDE RECORDS SUMMARY | 2024-11-23 07:41 | XMS_ITS | Clinical Summary ---
Author Organization [facility] Address [address] [place] [address] Care Team Providers Care Metal Machine Operator Name Role Phone Isidro Stanford MD Primary [...] age to complete this topic Care Teams Metal Machine Operator Relationship Specialty Start Date End Date Isidro Stanford MD PCP - General Internal Medicine 07/10/15
== END ==
LOC: HO.CARD 07:37
PROVIDERS: PCP Nurse Practitioner Family; Visit Provider Nurse Practitioner Family
DX: R07.89 Other chest pain (principal); I25.10 Atherosclerotic heart disease of native coronary artery without angina pectoris; I10 Essential (primary) hypertension
CPT/HCPCS: 93017; J0280; J2785

== ENCOUNTER → 2024-11-23 07:40 | Outpatient (BNV) | payer MEDICARE, MEDICAID, SELFPAY | PROVIDERS: PCP Nurse Practitioner Family | DX: R06.02 Shortness of breath (principal); I49.1 Atrial premature depolarization; R03.0 Elevated blood-pressure reading, without diagnosis of hypertension | CPT/HCPCS: 78452; 93016; 93018 ==

== ENCOUNTER 2024-12-01 09:15 | Outpatient (AMB) | payer MEDICARE, MEDICAID, SELFPAY ==
[2024-12-01 09:27] VITALS: BP 120/64; PULSE 70; BMI 33.1
--- NOTE | 2024-12-01 09:27 | A.OFFVIS_ITS ---
Vital Signs 12/01/24 09:27 Height 5 ft 11 in Weight 237 lb 10.533 oz BMI 33.1 BP 120/64 Blood Pressure Location Lt brachial Position Sitting Pulse 70 Intake Visit Reasons: followup after testing/colonoscopy clearance Hospital Tray Service Worker Required: No Accompanied by: Self / Same As Patient Allergies No Known Allergies Allergy (Verified 10/16/24 14:29) Medication List - Last Reconciled 12/01/24 by REGINA MarreroC albuterol sulfate 90 mcg/actuation 2 puffs inhalation Q6H PRN amlodipine 10 mg PO DAILY apple cider vinegar mg PO ascorbate calcium (vitamin C) 500 mg PO DAILY bisacodyl (Dulcolax (bisacodyl)) 20 mg (4 x 5 mg) PO ONCE 1 day cetirizine 10 mg PO DAILY fluticasone propionate 50 mcg/actuation (Allergy Relief (fluticasone)) 2 sprays intranasal DAILY gabapentin 100 mg PO DAILY methadone 10 mg PO QDAY polyethylene glycol 3350 (Miralax) 238 grams PO ONCE testosterone cypionate 200 mg IM .q2 week valsartan-hydrochlorothiazide 320-12.5 mg 1 tab PO DAILY HPI HPI followup after testing/colonoscopy clearance: Details: Rafi is a 63-year-old male with past medical history of hypertension, GERD, coronary calcifications on CT scan, chest discomfort who recently had a nuclear stress test, echocardiogram and Holter monitor and now presents for follow-up. Today he reports he has been doing well with no concerning symptoms. He denies any recent or recurrent chest discomfort. No shortness of breath, PND, orthopnea or edema. He will feel brief fluttering in his chest at times lasting seconds. No lightheadedness, presyncope, syncope. He reports good activity tolerance. He has never smoked. 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 His mother and maternal aunt had history of atrial fibrillation. His mother had coronary artery bypass grafting in her 80s and following surgery. His father of aortic aneurysm age 86. Patient does not know if this was thoracic aorta or abdominal aorta [facility] Medical History Hypertension Chest congestion GERD (gastroesophageal reflux disease) Axonal sensorimotor neuropathy Surgical History S/P left knee arthroscopy History of right hip replacement Family History Mother CHF (congestive heart failure) Social History Housing: House Alcohol intake: current Alcohol intake frequency: holidays/special occasions only Comment: once a month Patient Tobacco Use Status: Never used Tobacco e-Cigarette/Vaping Use: Never Used Second Hand Smoke Exposure: No service: No Current occupational status: disabled Cognitive needs: No Hearing needs: No Vision needs: No Review of Systems Const All systems reviewed & are unremarkable except as noted in HPI and below Denies chills, Denies fatigue, Denies fever(s), Denies weight gain and Denies weight loss ENT Denies dizziness Card Denies chest pain, Denies leg edema, Denies lightheadedness, Denies palpitations, Reports dyspnea on exertion, Denies orthopnea and Denies other Resp Denies cough and Reports dyspnea on exertion GI Denies hematochezia and Denies change in stool character Musc Denies abnormal gait, Denies muscle weakness, Denies numbness, Denies radiating pain into limb and Denies tingling Neuro Denies abnormal gait, Denies dizziness, Denies numbness and Denies tingling Endo Denies fatigue and Denies palpitations Physical Exam Vital Signs: Last Vital Signs Pulse 70 12/01/24 09:27 BP 120/64 12/01/24 09:27 BMI result Body Mass Index 33.1 Const General: cooperative, healthy appearing, comfortable and no acute distress Orientation/consciousness: patient oriented x3 Neck Neck: Yes normal visual inspection and Yes no JVD Resp Effort & Inspection: normal respiratory effort Auscultation: clear to auscultation bilaterally, no crackles, no rales, no rhonchi and no wheezes Cardio Jugular venous distension: no JVD Rate: regular rate Rhythm: regular rhythm Heart sounds: S1 normal heart sound present, S2 normal heart sound present, no murmurs and no rubs Neuro General: patient oriented x3 Extrem General: Yes normal to inspection and No no pedal edema Psych Appearance: grossly normal Mental Status: mental status grossly normal Speech and movement: Normal speech and movement present Office Procedures EKG Details: Today, read by me, normal sinus rhythm, left anterior fascicular block, rate 70, QTC 427 milliseconds [id number], Complete Assessment & Plan Assessment & Plan (1) Chest discomfort: Code(s): R07.89 - Other chest pain Category: Medical Plan: Prior reports of atypical chest discomfort leading to cardiac evaluation with findings suggestive of nonobstructive coronary artery disease. He has cardiac risk factors of hypertension and family history. A CTA of the chest done 06/30/2024 shows moderate coronary calcifications. An echocardiogram done 08/25/2024 showed EF 55-60%, impaired relaxation, mild biatrial enlargement, ascending aorta 4.3 cm. A nuclear stress test on 11/23/2024 with exercise just over 5 minutes with moderate shortness of breath, no EKG changes and normal myocardial perfusion imaging. Test results reviewed with him in detail. Discussed nonobstructive coronary artery disease and risk factor modification. Will have him start on aspirin 81 mg daily, atorvastatin 20 mg daily. Labs done 09/05/2024 had shown LDL 126. Plan for repeat lipid profile 6-8 weeks following start of statin. Signs and symptoms of angina reviewed with him. Cardiology follow-up 6 months, sooner if needed. (2) Palpitations: Code(s): R00.2 - Palpitations Category: Medical Plan: He reports intermittent brief fluttering in his chest, lasting seconds. There is a family history of atrial fibrillation in his mother and maternal aunt. Holter monitor done 08/25/2024 for 3 days shows sinus rhythm with average heart rate 74, SVE 2.5% of time, rare ventricular ectopy, longest 3 beats. He is likely feeling the SVE's. Reviewed this with him. Discussed caffeine reduction, good hydration, activity as tolerated. (3) Hypertension: Code(s): I10 - Essential (primary) hypertension Category: Medical Qualifiers: Hypertension type: unspecified Qualified Code(s): I10 - Essential (primary) hypertension Plan: Well controlled at present. No med changes made at this time. Continue amlodipine, valsartan/hydrochlorothiazide. (4) Coronary artery calcification seen on CAT scan: Code(s): I25.10 - Atherosclerotic heart disease of [place] coronary artery without angina pectoris Category: Medical Plan: As above. Plan Time spent on chart review, documentation, interview and assessment Medications: New aspirin 81 mg PO DAILY 90 tabs 3RF atorvastatin 20 mg PO DAILY 30 tabs 6RF Coding Level of Care Code Est Pt Level 4 (58000) Complex EM visit Add On G2211 Diagnoses Chest discomfort R07.89 Palpitations R00.2 Hypertension, unspecified type I10 Hypertension type: unspecified Coronary artery calcification seen on CAT scan I25.10 CPT Codes EKG - CPT: 62037-[id number], Complete ([id number]) Time Spent (min) 28
--- OUTSIDE RECORDS SUMMARY | 2024-12-01 09:36 | XMS_ITS | Clinical Summary ---
Author Organization [facility] [employer] [facility] it Address [address] [place] [address] Care Team Providers Care It Program Manager Name Role Phone Isidro Stanford MD Primary Care Provider [phone] Surgical History Surgery Date Site/Laterality Comments HIP [...] season) 2024 11/04/2021, 10/25/2020, 09/27/2020 Influenza Vaccine (Season Ended) 2025 07/02/2020, 06/08/2019, 06/08/2018, Additional history exists RSV Immunization [...] age to complete this topic Meningococcal B Vaccine Aged Out No l onger eligible based on patient's age to complete [...] age to complete this topic Care Teams It Program Manager Relationship Specialty Start Date End Date Isidro Stanford MD PCP - General Internal Medicine 07/10/15
--- OUTSIDE RECORDS SUMMARY | 2024-12-01 09:36 | XMS_ITS | Clinical Summary ---
Author Organization [facility] Address [address] [place] [address] Care Team Providers Care Trading Assistant Name Role Phone Isidro Stanford MD Primary [...] age to complete this topic Care Teams Trading Assistant Relationship Specialty Start Date End Date Isidro Stanford MD PCP - General Internal Medicine 07/10/15
== END 2024-12-01 09:51 | disposition home or self-care (01) ==
LOC: HO.HCS 09:16
PROVIDERS: PCP Nurse Practitioner Family; Visit Provider Nurse Practitioner Family
DX: R07.89 Other chest pain (principal); R00.2 Palpitations; I10 Essential (primary) hypertension; I25.10 Atherosclerotic heart disease of native coronary artery without angina pectoris
CPT/HCPCS: 93010; 99214; G2211

== ENCOUNTER → 2024-12-01 09:15 | Outpatient (BNVA) | payer MEDICARE, MEDICAID, SELFPAY | PROVIDERS: PCP Nurse Practitioner Family; Visit Provider Nurse Practitioner Family | DX: R07.89 Other chest pain (principal); R00.2 Palpitations; I10 Essential (primary) hypertension; I25.10 Atherosclerotic heart disease of native coronary artery without angina pectoris; I44.4 Left anterior fascicular block; R94.31 Abnormal electrocardiogram [ECG] [EKG] | CPT/HCPCS: 93005; 99212 ==

== ENCOUNTER 2024-12-29 06:01 | Outpatient (REF) | payer MEDICARE, SELFPAY ==
--- OUTSIDE RECORDS SUMMARY | 2024-12-29 06:03 | XMS_ITS | Clinical Summary ---
Author Organization [facility] Address [address] [place] [address] Care Team Providers Care Rodeo Rider Name Role Phone Isidro Stanford MD Primary [...] 07/06/2024 07/06/2023, 06/08/2022, 06/05/2021, Additional history exists Fall Risk Assessment 12/08/2024 Pneumococcal Vaccine (1 of 1 - PCV) [...] age to complete this topic Care Teams Rodeo Rider Relationship Specialty Start Date End Date Isidro Stanford MD PCP - General Internal Medicine 07/10/15
--- OUTSIDE RECORDS SUMMARY | 2024-12-29 06:03 | XMS_ITS ---
Author Name [facility] Organization Unknown Encounters Encounter Type Encounter Reason Primary Diagnosis Location Date Ambulatory [facility] 06/02/2024 Care Team Organization Name Specialty Phone Email Start Date End Da te [facility] 2024
[2024-12-29 10:24] LABS: Alanine Aminotransferase 14 U/L (0-40); Albumin Level 4.5 g/dL (3.5-5.0); Alkaline Phosphatase 69 U/L (39-117); Anion Gap 10 (12-20); Aspartate Amino Transferase 25 U/L (5-37); Bilirubin Total 0.8 mg/dL (0.0-1.0); Blood Urea Nitrogen 13 mg/dL (9-16); Calcium 9.8 mg/dL (8.4-10.2); Carbon Dioxide 29 mmol/L (22-29); Chloride 104 mmol/L (96-108); Cholesterol 185 mg/dL (<200); Estimated Glomerular Filt Rate > 60; Glucose Fasting 90 mg/dL (60-99); HDL Cholesterol 41 mg/dL (>40); LDL Cholesterol Calculated 124 mg/dL (<100); Potassium 4.1 mmol/L (3.3-5.1); Sodium 139 mmol/L (135-145); Total Protein 7.9 g/dL (6.5-8.0); Triglycerides 101 mg/dL (<150)
[2025-01-04 21:08] LABS: Testosterone, Total 808 ng/dL (250-1100)
== END 2024-12-29 06:02 | disposition home or self-care (01) ==
LOC: HO.HMGCLDS 06:01
PROVIDERS: Urology; PCP Nurse Practitioner Family; Visit Provider Nurse Practitioner Family
DX: E78.5 Hyperlipidemia, unspecified (principal); R79.89 Other specified abnormal findings of blood chemistry; Z79.890 Hormone replacement therapy
CPT/HCPCS: 36415; 80053; 80061; 84402; 84403

== ENCOUNTER 2025-01-08 07:58 | Outpatient (AMB) | payer MEDICARE, SELFPAY ==
--- OUTSIDE RECORDS SUMMARY | 2025-01-08 08:00 | XMS_ITS | Clinical Summary ---
Author Organization [facility] Address [address] [place] [address] Care Team Providers Care Nutrition Internship Name Role Phone Isidro Stanford MD Primary [...] age to complete this topic Care Teams Nutrition Internship Relationship Specialty Start Date End Date Isidro Stanford MD PCP - General Internal Medicine 07/10/15
--- OUTSIDE RECORDS SUMMARY | 2025-01-08 08:00 | XMS_ITS | Clinical Summary ---
Author Organization [facility] it Address [address] [place] [address] Care Team Providers Care Cloth Baler Name Role Phone Isidro Stanford MD Primary Care Provider [phone] Surgical History Surgery Date Site/Laterality Comments HIP [...] DTaP,Tdap,and Td Vaccines (1 - Tdap) 12/08/1978 Hepatitis A Vaccines (1 of 2 - Risk 2-dose series) 12/08/1978 Pneumococcal Vaccine: 50+ Years (1 of 1 - PCV) 12/08/2009 Zoster Vaccines (1 of 2) 12/08/2009 Abdominal Aortic Aneurysm (AAA) Screen 07/30/2022 Cholesterol Screening (Lipid Panel) 07/30/2022 Colorectal Cancer Screening: Colonoscopy 07/30/2022 Depression Screening 07/30/2022 Hepatitis C Screening 07/30/2022 Medicare Annual Wellness Visit 07/30/2022 Social Influencers of Health Screening 07/30/2022 Hypertension/CHF/CAD Annual BMP Blood Test 07/31/2022 COVID-19 Vaccine ( season) 2024 11/04/2021, 10/25/2020, 09/27/2020 Falls Risk Assessment 12/08/2024 Influenza Vaccine (Season Ended) 2025 07/02/2020, 06/08/2019, [...] age to complete this topic Care Teams Cloth Baler Relationship Specialty Start Date End Date Isidro Stanford MD PCP - General Internal Medicine 07/10/15
--- NOTE | 2025-01-08 08:01 | A.OFFVIS_ITS ---
Intake Visit Reasons: 2 month/ testo Clam Grader Required: No Allergies No Known Allergies Allergy (Verified 10/16/24 14:29) HPI Comments Details: 01/08/25--presents for telehealth visit he is on testosterone replacement for low testosterone. He was last evaluated 11/03/2024 and even with testosterone replacement therapy persisted with low testosterone levels. Testosterone was increased from 200 mg once a month to 200 mg every 2 weeks. I have reviewed repeat testosterone levels total testosterone 808, free testosterone 126, Hct 47.2. The patient states he does note a difference in mood and energy. I discussed continuing to monitor blood levels repeat in 3 months along with PSA. Results: Labs-12/29/2024--total testosterone 808 ng/dL; free testosterone 126 pg/mL, hematocrit 47.2 % Labs 09/05/2024--PSA-2.90 ng/mL 11/03/24--presents for telehealth visit he is on testosterone replacement for low testosterone. I have reviewed repeat testosterone levels total testosterone 194, free testosterone 26.2, prolactin 6.2. I will increase testosterone from 200 mg once a month to 200 mg every 2 weeks. Repeat levels in 2 months. 10/16/24--Rafi is here for evaluation for low testosterone and erectile dysfunction. The patient is currently on testosterone replacement. IIEF-5 score - 19. He is on chronic methodone use. Will cont testosterone replacement and monitor levels. Check Hct. [facility] Medical History Hypertension Chest congestion GERD (gastroesophageal reflux disease) Axonal sensorimotor neuropathy Surgical History S/P left knee arthroscopy History of right hip replacement Family History Mother CHF (congestive heart failure) Social History Housing: House Alcohol intake: current Alcohol intake frequency: holidays/special occasions only Comment: once a month Patient Tobacco Use Status: Never used Tobacco e-Cigarette/Vaping Use: Never Used Second Hand Smoke Exposure: No service: No Current occupational status: disabled Cognitive needs: No Hearing needs: No Vision needs: No Telehealth Telehealth Telehealth Platform: Telephone Location of provider rendering services: practice address Location of patient: address on file Patient Identification confirmed using: Name, : Yes Telehealth method: voice only Patient verbally consented to treatment: Yes Patient verbally consented to billing insurance company: Yes Patient informed of any privacy concerns related to visit: Yes Minutes spent on Phone/Video with Pt.: 14 Assessment & Plan Assessment & Plan (1) Hypogonadism in male: Code(s): E29.1 - Testicular hypofunction Category: Medical (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, unspecified, uncomplicated Category: Medical (3) Long-term current use of testosterone replacement therapy: Code(s): Z79.890 - Hormone replacement therapy Category: Medical (4) Low testosterone: Code(s): R79.89 - Other specified abnormal findings of blood chemistry Category: Medical Plan He was last evaluated 11/03/2024 and even with testosterone replacement therapy persisted with low testosterone levels. Testosterone was increased from 200 mg once a month to 200 mg every 2 weeks. I have reviewed repeat testosterone levels total testosterone 808, free testosterone 126, Hct 47.2. The patient states he does note a difference in mood and energy. I discussed continuing to monitor blood levels repeat in 3 months along with PSA. Patient Instructions: The patient had an opportunity to ask questions regarding treatment plan. The patient expressed understanding and agreement with the above treatment plan. The patient is aware they should contact our office by phone for worsening of their current condition or the appearance of new symptoms. Compliance is encouraged with any medications and followup testing that is ordered. It is a privilege to be allowed the opportunity to participate in the urologic care of your patient. If you have any questions or concerns regarding treatment for the above conditions please do not hesitate to contact me. The office telephone contact is [phone]. This note is constructed in part using voice recognition software. While every effort has been made to ensure accuracy pattern data operator errors may have been included. Yours sincerely, Braxton Hodges MD Coding Level of Care Code Tele Est Pt Level 3 (30993) Diagnoses Hypogonadism in male E29.1 Methadone use F11.90 Long-term current use of testosterone replacement therapy Z79.890 Low testosterone R79.89
== END 2025-01-08 10:03 | disposition home or self-care (01) ==
LOC: HO.HUSH 07:58
PROVIDERS: PCP Nurse Practitioner Family; Visit Provider Urology
DX: E29.1 Testicular hypofunction (principal); F11.90 Opioid use, unspecified, uncomplicated; Z79.890 Hormone replacement therapy; R79.89 Other specified abnormal findings of blood chemistry
CPT/HCPCS: 99213

== ENCOUNTER → 2025-01-08 07:58 | Outpatient (BNVA) | payer MEDICARE, SELFPAY | PROVIDERS: PCP Nurse Practitioner Family; Visit Provider Urology | DX: Z13.89 Encounter for screening for other disorder (principal) ==

== ENCOUNTER 2025-02-26 08:35 | Outpatient (AMB) | payer MEDICARE, MEDICAID, SELFPAY ==
[2025-02-26 08:37] VITALS: BP 120/62; PULSE 90; O2SAT 95; BMI 33.1
--- NOTE | 2025-02-26 08:37 | AM.OFFVISMDC ---
Intake Vital Signs 02/26/25 08:37 Height 5 ft 11 in Weight 237 lb BMI 33.1 BP 120/62 Blood Pressure Location Lt brachial Position Sitting Pulse 90 Pulse Source Pulse Oximeter Pulse Oximetry (%) 95 Oxygen Delivery Method Room Air Intake Visit Reasons: [facility] [[email or web address] G0439 Special Tester Required: No Accompanied by: Self / Same As Patient Allergies atorvastatin Adverse Reaction (Mild, Verified 02/26/25 09:25) Joint Pain Medication List - Last Reconciled 02/26/25 by CEDRIC Vanessa albuterol sulfate 90 mcg/actuation 2 puffs inhalation Q6H PRN amlodipine 10 mg PO DAILY apple cider vinegar mg PO ascorbate calcium (vitamin C) 500 mg PO DAILY aspirin 81 mg PO DAILY cetirizine 10 mg PO DAILY fluticasone propionate 50 mcg/actuation (Allergy Relief (fluticasone)) 2 sprays intranasal DAILY gabapentin 300 mg PO DAILY methadone 10 mg PO QDAY testosterone cypionate 200 mg IM .q2 week valsartan-hydrochlorothiazide 320-12.5 mg 1 tab PO DAILY Do you need a note to return to daycare/school/sports/work: No HPI [facility] [[email or web address]] G0439 HPI Details AWV: PPP in scan pile, CCC in scan pile. denies any SOB, CP, dizziness, MARTINEZ, Blurred vision PFSH Medical History Hypertension Chest congestion GERD (gastroesophageal reflux disease) Axonal sensorimotor neuropathy Surgical History S/P left knee arthroscopy History of right hip replacement Family History Mother CHF (congestive heart failure) Social History Housing: House Alcohol intake: current Alcohol intake frequency: holidays/special occasions only Comment: once a month Patient Tobacco Use Status: Never used Tobacco e-Cigarette/Vaping Use: Never Used Second Hand Smoke Exposure: No service: No Current occupational status: disabled Cognitive needs: No Hearing needs: No Vision needs: No Questionnaire Medicare Wellness Checkup [age] What gender do you identify with?: male During the past 4 weeks, how much have you been bothered by emotional problems such as feeling anxious, depressed, irritable, sad or downhearted, and blue?: not at all During the past 4 weeks, has your physical & emotional health limited your social activities with family, friends, neighbors, or groups?: slightly During the past 4 weeks, how much bodily pain have you generally had?: mild pain During the past 4 weeks, was someone available to help you if you needed & wanted help?: no, not at all During the past 4 weeks, what was the hardest physical activity you could do for at least 2 minutes?: moderate Can you get to places out of walking distance without help? (For eg., can you travel alone on buses, taxis or drive your car?): Yes Can you go shopping for groceries or clothes without someone's help?: Yes Can you prepare your own meals?: Yes Can you do your housework without help?: Yes Because of any health problems, do you need the help of another person with your personal care needs such as eating, bathing, dressing or getting around the house?: Yes Can you handle your own money without help?: Yes During the past 4 weeks, how would you rate your health in general?: fair During the past 4 weeks how have things been going for you?: good & bad parts about equal Are you having difficulties driving your car?: yes, often Do you always fasten your seat belt when you are in a car?: yes, usually During past 4 weeks, have you been bothered by the following: never: Falling or dizzy when standing up, Sexual problems?, Trouble eating well? and Problems using the telephone?, often: Tiredness or fatigue? and always: Teeth or denture problems? Have you fallen 2 or more times in the past year?: No Are you afraid of falling?: No Are you a smoker?: no During the past 4 weeks, how many drinks of wine, beer, or other alcoholic beverages did you have?: 1 drink or less per week Do you exercise for about 20 minutes 3 or more times a week?: yes, most of the time Have you been given information to help with the following?: no: Hazards in your house that might hurt you? and no: Keeping track of your medications? How often do you have trouble taking medicines the way you have been told to take them?: I always take medicine as prescribed How confident are you that you can control & manage most of your health problems?: very confident What is your race?: White Mini Mental State Exam (MMSE) Orientation What is the (year) (season) (date) (day) (month)?: year, season, date, day and month Where are we (state) (county) (town or city) (hospital) (floor)?: state, county, town or city, hospital/clinic and floor Registration Name of 3 unrelated objects clearly and slowly, then ask patient to repeat all 3 of them. (1st repeat determines score. Make sure they can repeat all three): object 1, object 2 and object 3 Attention & Calculation (CHOOSE ONE) Spell WORLD backwards (DLROW): 5 letters Recall Ask patient to repeat the 3 items from question #3.: object 1, object 2 and object 3 Language Show patient a wristwatch & ask what it is. Repeat for pencil.: watch and pencil Ask the patient to repeat the phrase 'No ifs, ands, or buts' after you.: correct Ask the patient to 'take a piece of paper with their right hand' 'fold paper in half' 'place paper on floor': take paper in right hand, fold paper in half and place paper on floor Print the sentence 'CLOSE YOUR EYES' on a piece. If patient actually closes eyes then score.: followed written direction Give patient a blank piece of paper & ask to write a sentence. Score if it contains a noun & verb.: sentence contains subject and verb Ask patient to copy figure of intersecting pentagons exactly. Score if all 10 angles & 2 intersects are included.: all 10 angles present & 2 are intersected Score Score: 30 Activity of Daily Living Bathing - sponge bath, tub bath or shower: receives no assistance (gets in/out by self, if usual bathing means Dressing - getting clothes from closets & drawers, including inner/outer garments & fasteners.: gets clothes & gets completely dressed without help Toileting - going to the 'toilet room' for urine/bowel elimination & cleaning self/arranging clothes: goes to toilet room, cleans self, arranges clothes without help Transfer: moves in & out of bed and chair without help (may use support object) Continence: controls urination/bowel movements completely by self Feeding: feeds self without help Total Score: 0 Information obtained from: patient Using telephone: independent Traveling: independent Shopping: independent Preparing meals: independent Housework: independent Taking medicine: independent Managing money: independent PHQ-9 Over the last 2 weeks, how often have you been bothered by any of the following problems? 1. Little interest or pleasure in doing things: not at all 2. Feeling down, depressed, or hopeless: not at all 3. Trouble falling or staying asleep, or sleeping too much: several days 4. Feeling tired or having little energy: several days 5. Poor appetite or overeating: not at all 6. Feeling bad about yourself - or that you are a failure or have let yourself or your family down: not at all 7. Trouble concentrating on things, such as reading the newspaper or watching television: not at all 8. Moving or speaking so slowly that other people could have noticed. Or the opposite - being so fidgety or restless that you have been moving around a lot more than usual: several days 9. Thoughts that you would be better off or of hurting yourself in some way: not at all Total score: 3 Depression Screening Interpretation: Negative Depression Screening Done: Yes 55901 - PHQ-9 Billing: Yes Source: Developed by Drs. Anurag Miranda, Pari Garzon, Rosales Oakley and colleagues, with an educational pao from [employer]. Physical Exam Vital Signs: Last Vital Signs Pulse 90 02/26/25 08:37 BP 120/62 02/26/25 08:37 Pulse Ox 95 02/26/25 08:37 Oxygen Delivery Method Room Air 02/26/25 08:37 BMI result Body Mass Index 33.1 Resp Auscultation: clear to auscultation bilaterally Cardio Other: s1 s2 Neuro Other: able to stand from sitting position, neg rhomberg, able to tandem walk, + whisper test, Assessment & Plan Assessment & Plan (1) Screening for prostate cancer: Code(s): Z12.5 - Encounter for screening for malignant neoplasm of prostate (2) Hard of hearing: Code(s): H91.90 - Unspecified hearing loss, unspecified ear (3) Hypertension: Code(s): I10 - Essential (primary) hypertension Qualifiers: Hypertension type: unspecified Qualified Code(s): I10 - Essential (primary) hypertension (4) Encounter for annual wellness visit (AWV) in Medicare patient: Code(s): Z00.00 - Encounter for general adult medical examination without abnormal findings Plan . Orders: Orders AMB EKG-In Office Today I10 - Essential (primary) hypertension Prostate Specific Antigen Scr Today Z12.5 - Encounter for screening for malignant neoplasm of prostate Pneumococcal 20 Immunization Today Z23 - Encounter for immunization Referrals Speech and Hearing Referral H91.90 - Unspecified hearing loss, unspecified ear Medications: New pneumoc 20-krys conj-dip cr(PF) 0.5 mL IM ONCE 0.5 mL 0RF Z23 - Encounter for immunization Quality Reporting (2019) Depression/Bipolar (159/160/161/177) PHQ-9: Total score: 3 Coding Level of Care Code Medicare First (G0438) Est Pt Level 3 (25269) Diagnoses Screening for prostate cancer Z12.5 Hard of hearing H91.90 Hypertension, unspecified type I10 Hypertension type: unspecified Encounter for annual wellness visit (AWV) in Medicare patient Z00.00 Additional Codes PHQ-9 - 78826 - PHQ-9 Billing: Yes ([id number]) Advance Care Planning Forms completed: Health Care Proxy (form given to pt and explained), MOLST (form given to pt and explained) and Living will (encouraged to get done)
--- OUTSIDE RECORDS SUMMARY | 2025-02-26 08:46 | XMS_ITS ---
Author Name [facility] Organization Unknown Encounters Encounter Type Encounter Reason Primary Diagnosis Location Date Ambulatory [facility] 06/02/2024 Care Team Organization Name Specialty Phone Email Start Date End Da te [facility] 2024
--- OUTSIDE RECORDS SUMMARY | 2025-02-26 08:46 | XMS_ITS | Clinical Summary ---
Author Organization [facility] it Address [address] [place] [address] Care Team Providers Care Shook Machine Operator Name Role Phone Isidro Stanford MD Primary Care Provider [phone] Surgical History Surgery Date Site/Laterality Comments HIP [...] 09/27/2020 Falls Risk Assessment 12/08/2024 Influenza Vaccine (#1) 2025 , 06/08/2019, 06/08/2018, Additional history exists RSV [...] age to complete this topic Care Teams Shook Machine Operator Relationship Specialty Start Date End Date Isidro Stanford MD PCP - General Internal Medicine 07/10/15
--- OUTSIDE RECORDS SUMMARY | 2025-02-26 08:46 | XMS_ITS | Clinical Summary ---
Author Organization [facility] Address [address] [place] [address] Care Team Providers Care Assembler Chassis Name Role Phone Isidro Stanford MD Primary [...] 63 07/06/2023 11:30 AM EST Temperature 37.2 C (99 F) 07/06/2023 11:03 AM EST Respiratory Rate - [...] 09/10/2021, 05/03/2020, Additional history exists COVID-19 Vaccine (4 - 2024-25 season) 2024 11/04/2021, 10/25/2020, 09/27/2020 Preventative Health Evaluation 07/06/2024 07/06/2023, 06/08/2022, 06/05/2021, Additional history exists Fall Risk Assessment 12/08/2024 Pneumococcal Vaccine (1 of 1 - PCV) 12/08/2024 Influenza Vaccine (#1) 2025 , 07/02/2020, 06/08/2019, Additional history exists RSV Adult > 60+ Yrs or (1 [...] age to complete this topic Care Teams Assembler Chassis Relationship Specialty Start Date End Date Isidro Stanford MD PCP - General Internal Medicine 07/10/15
== END 2025-02-26 09:50 | disposition home or self-care (01) ==
LOC: HO.HMCC 08:36
PROVIDERS: Visit Provider Nurse Practitioner Family
DX: Z00.00 Encounter for general adult medical examination without abnormal findings (principal); H91.93 Unspecified hearing loss, bilateral; I10 Essential (primary) hypertension; Z12.5 Encounter for screening for malignant neoplasm of prostate; Z23 Encounter for immunization

== ENCOUNTER → 2025-02-26 08:35 | Outpatient (BNVA) | payer MEDICARE, MEDICAID, SELFPAY | PROVIDERS: Visit Provider Nurse Practitioner Family | DX: Z00.00 Encounter for general adult medical examination without abnormal findings (principal); Z23 Encounter for immunization; I10 Essential (primary) hypertension; H91.93 Unspecified hearing loss, bilateral | CPT/HCPCS: 90471; 90677; 93005; 96127; 99212 ==

== ENCOUNTER 2025-03-09 06:01 | Outpatient (REF) | payer MEDICARE, MEDICAID, SELFPAY ==
--- OUTSIDE RECORDS SUMMARY | 2025-03-09 06:04 | XMS_ITS | Clinical Summary ---
Author Organization [facility] Address [address] [place] [address] Care Team Providers Care Kitchen Assistant Name Role Phone Isidro Stanford MD [...] age to complete this topic Care Teams Kitchen Assistant Relationship Specialty Start Date End Date Isidro Stanford MD PCP - General Internal Medicine 07/10/15
[2025-03-09 10:55] LABS: Alanine Aminotransferase 13 U/L (0-40); Albumin Level 4.5 g/dL (3.5-5.0); Alkaline Phosphatase 65 U/L (39-117); Anion Gap 11 (12-20); Aspartate Amino Transferase 24 U/L (5-37); Blood Urea Nitrogen 14 mg/dL (9-16); Calcium 9.2 mg/dL (8.4-10.2); Carbon Dioxide 26 mmol/L (22-29); Chloride 106 mmol/L (96-108); Cholesterol 203 mg/dL (<200); Estimated Glomerular Filt Rate > 60; HDL Cholesterol 44 mg/dL (>40); Potassium 4.0 mmol/L (3.3-5.1); Sodium 139 mmol/L (135-145); Total Protein 7.8 g/dL (6.5-8.0); Triglycerides 210 mg/dL (<150)
[2025-03-15 13:43] LABS: Testosterone, Free 27.9 pg/mL (35.0-155.0)
== END 2025-03-09 06:02 | disposition home or self-care (01) ==
LOC: HO.HMGCLDS 06:01
PROVIDERS: PCP Nurse Practitioner Family; Referring Provider Urology; Visit Provider Nurse Practitioner Family
DX: Z12.5 Encounter for screening for malignant neoplasm of prostate (principal); Z79.890 Hormone replacement therapy; E78.5 Hyperlipidemia, unspecified
CPT/HCPCS: 36415; 80053; 80061; 84153; 84402; 84403

== ENCOUNTER 2025-04-09 07:11 | Outpatient (AMB) | payer MEDICARE, MEDICAID, SELFPAY ==
--- OUTSIDE RECORDS SUMMARY | 2025-04-09 07:12 | XMS_ITS | Clinical Summary ---
Author Organization [facility] Address [address] [place] [address] Care Team Providers Care Railway Signal Electrician Name Role Phone Isidro Stanford MD Primary [...] age to complete this topic Care Teams Railway Signal Electrician Relationship Specialty Start Date End Date Isidro Stanford MD PCP - General Internal Medicine 07/10/15
--- OUTSIDE RECORDS SUMMARY | 2025-04-09 07:12 | XMS_ITS | Clinical Summary ---
Author Organization [facility] Address [address] [place] [address] Care Team Providers Care Bagman/Woman Name Role Phone Isidro Stanford MD Primary Care Provider [phone] Surgical History Surgery Date Site/Laterality Comments HIP [...] Panel) 07/30/2022 Colorectal Cancer Screening: Colonoscopy 07/30/2022 Hepatitis C Screening 07/30/2022 Medicare Annual Wellness Visit 07/30/2022 Social Influencers of Health Screening 07/30/2022 Hypertension/CHF/CAD Annual BMP Blood Test 07/31/2022 COVID-19 Vaccine ( season) 2024 11/04/2021, 10/25/2020, 09/27/2020 Depression Screening 08/23/2024 Falls Risk Assessment 12/08/2024 Influenza Vaccine (#1) [...] age to complete this topic Care Teams Bagman/Woman Relationship Specialty Start Date End Date Isidro Stanford MD PCP - General Internal Medicine 07/10/15
[2025-04-09 07:18] VITALS: BP 114/58; PULSE 85; TEMP 37; O2SAT 97; BMI 33.6
--- NOTE | 2025-04-09 07:18 | MHC.OFFWIV ---
Intake Vital Signs 04/09/25 07:18 Height 5 ft 11 in Weight 241 lb BMI 33.6 BP 114/58 L Blood Pressure Location Rt brachial Position Sitting Pulse 85 Pulse Source Pulse Oximeter Temp 98.6 F Temp Source Oral Pulse Oximetry (%) 97 Oxygen Delivery Method Room Air Intake Visit Reasons: EP-lower back pain Intake Note: present with lower back pain for 3 days Patient Tobacco Use Status: Never used Tobacco Allergies atorvastatin Adverse Reaction (Mild, Verified 04/09/25 07:26) Joint Pain Do you need a note to return to daycare/school/sports/work: No HPI HPI Comments History of Present Illness Details History - The patient is a 64-year-old male presenting with excruciating lower back pain radiating to both legs. - The pain began on Wednesday while working on a car and has persisted despite rest over the weekend. - The patient describes the pain as excruciating and reports associated numbness in the legs. - The pain is a constant sharp pain in the low back on both sides. - No history of back problems prior to this incident. - The patient has tried using a heating pad and taking Aleve without relief. - The patient is on a low dose of methadone for pain management. - The patient has a history of serious hip problems, including multiple surgeries and a significant infection in 2007 treated with Vancomycin. - He denies saddle anesthesia, incontinence, numbness, or tingling. - He denies CP, SOB, abd pain, n/v/d, dysuria, or hematuria. Physical Exam General: cooperative, healthy appearing and comfortable, patient oriented x3 Head: Normal to inspection, normocephalic/atraumatic Effort & Inspection: Normal respiratory effort and able to speak in complete sentences. Cardiac: RRR, no M/R/G noted. Normal S1 and S2. Respiratory: Clear to auscultation bilaterally. No w/r/r noted. Back/spine: No CVA tenderness bilaterally. Cervical, thoracic and lumbar spine normal to inspection. Cervical ROM normal, no midline spinous tenderness noted. Thoracic ROM normal, lumbar ROM normal. No midline vertebral spinous tenderness noted. No step offs noted. No TTP of the thoracic or lumbar paraspinous or paravertebral muscles. DTR are 2+ on the lower extremities noted. Ambulates with a steady gait. Extremities: Straight leg raise test negative on right; Straight leg raise test negative on left; motor strength normal 5/5 bilaterally. Neuro: Sensation intact, but reports numbness going down both legs. Patient was informed and verbally consented to the use of an ambient scribe for clinic note documentation during this visit. [facility] Medical History Hypertension Chest congestion GERD (gastroesophageal reflux disease) Axonal sensorimotor neuropathy Surgical History S/P left knee arthroscopy History of right hip replacement Family History Mother CHF (congestive heart failure) Social History Housing: House Alcohol intake: current Alcohol intake frequency: holidays/special occasions only Comment: once a month Patient Tobacco Use Status: Never used Tobacco e-Cigarette/Vaping Use: Never Used Second Hand Smoke Exposure: No service: No Current occupational status: disabled Cognitive needs: No Hearing needs: No Vision needs: No Review of Systems Const All systems reviewed & are unremarkable except as noted in HPI and below Physical Exam Vital Signs: Last Vital Signs Temp 98.6 F 04/09/25 07:18 Pulse 85 04/09/25 07:18 BP 114/58 L 04/09/25 07:18 Pulse Ox 97 04/09/25 07:18 Oxygen Delivery Method Room Air 04/09/25 07:18 BMI result Body Mass Index 33.6 Assessment & Plan Assessment & Plan (1) Low back pain: Code(s): M54.50 - Low back pain, unspecified Qualifiers: Chronicity: acute Back pain laterality: bilateral Sciatica presence: without sciatica Qualified Code(s): M54.50 - Low back pain, unspecified Plan Most likely strain vs arthritis vs radiculopathy vs disc herniation Plan - Initiate treatment with muscle relaxers and pain medication. - Prescribe a short course of prednisone to reduce inflammation. - Consider lumbar x-ray if no improvement in symptoms after a few days. - Advise alternating heat and cold therapy based on patient preference. - Recommend avoiding heavy lifting and bending. - Evaluate further if symptoms persist or worsen. - can refer to PT - follow up with PCP Orders: Orders XR lumbar spine 2-3V Today M54.50 - Low back pain, unspecified Medications: New cyclobenzaprine 5 mg PO Q8H PRN 21 tabs 0RF Muscle Spasm 7 days naproxen 500 mg PO Q12H PRN 20 tabs 0RF pain 7 days prednisone 50 mg PO QAM 5 tabs 0RF Coding Level of Care Code Est Pt Level 4 (80386) Diagnoses Acute bilateral low back pain without sciatica M54.50 Chronicity: acute Back pain laterality: bilateral Sciatica presence: without sciatica
== END 2025-04-09 08:18 | disposition home or self-care (01) ==
PROVIDERS: PCP Nurse Practitioner Family; Visit Provider Physician Assistant Medical
DX: M54.50 Low back pain, unspecified (principal)

== ENCOUNTER → 2025-04-09 07:11 | Outpatient (BNVA) | payer MEDICARE, MEDICAID, SELFPAY | PROVIDERS: PCP Nurse Practitioner Family; Visit Provider Physician Assistant Medical | DX: M54.50 Low back pain, unspecified (principal) | CPT/HCPCS: 99212 ==

== ENCOUNTER 2025-04-10 12:10 | Outpatient (REF) | payer MEDICARE, MEDICAID, SELFPAY ==
--- OUTSIDE RECORDS SUMMARY | 2025-04-10 13:31 | XMS_ITS | Clinical Summary ---
Author Organization [facility] it Address [address] [place] [address] Care Team Providers Care Receiving Operator Name Role Phone Isidro Stanford MD Primary Care Provider [phone] Surgical History Surgery Date Site/Laterality Comments HIP [...] age to complete this topic Care Teams Receiving Operator Relationship Specialty Start Date End Date Isidro Stanford MD PCP - General Internal Medicine 07/10/15
--- OUTSIDE RECORDS SUMMARY | 2025-04-10 13:31 | XMS_ITS | Clinical Summary ---
Author Organization [facility] Address [address] [place] [address] Care Team Providers Care Carton Forming Machine Tender Name Role Phone Isidro Stanford MD Primary [...] age to complete this topic Care Teams Carton Forming Machine Tender Relationship Specialty Start Date End Date Isidro Stanford MD PCP - General Internal Medicine 07/10/15
--- NOTE | 2025-04-10 14:40 | MHC.AU.HA1 ---
Hearing Aid Evaluation Date of Visit: 04/10/25 Historical Information: Description of Hearing: Mild gradually sloping to moderately severe sensorineural hearing loss, bilateral. Current personal amplification information, if applicable: None. Summary: Rafi reports frequent asks for repetition, TV up loud. Amplification recommended to facilitate improved communication. Counseled on benefits and limitations of amplification, adjustment to implication. Reviewed options. Recommended RITE style hearing aid. Rafi selected rechargeable. He has an Android phone that he would like to pair the hearing aids with. Hearing Aid Prescription: Based on the individual?s shared listening needs, communication environments, dexterity, desire for connectivity, and personal preferences, the following prescription for amplification has been made: Right ear: Make, Model, Color: Phonak Audeo I 70 R sand beige Battery Size: Rechargeable Hostel Manager/Slim Tube: 2M Type of Earmold/Dome/CShell/SlimTip: med vented Left ear: Make, Model, Color: Phonak Audeo I 70 R sand beige Battery Size: Rechargeable Hostel Manager/Slim Tube: 2M Type of Earmold/Dome/CShell/SlimTip: med vented Plan of Care: Patient wishes to purchase hearing aids as prescribed Action Taken/Action Needed: Medical Clearance to be requested from PCP/ENT Hearing Instrument Fitting to be scheduled when materials arrive Primary Diagnosis: H90.3 Bilateral Sensorineural Hearing Loss Signature: Provider: Wallace Oseguera, CCC-A
== END 2025-04-10 12:11 | disposition home or self-care (01) ==
LOC: HO.SH 12:10
PROVIDERS: Visit Provider Nurse Practitioner Family
DX: Z01.118 Encounter for examination of ears and hearing with other abnormal findings (principal); Z46.1 Encounter for fitting and adjustment of hearing aid; H90.3 Sensorineural hearing loss, bilateral
CPT/HCPCS: 92557; 92567; 92591

== ENCOUNTER 2025-04-11 08:23 | Outpatient (REF) | payer MEDICARE, MEDICAID, SELFPAY ==
--- NOTE | ~2025-04-11 | XR_ITS ---
EXAMINATION: XR LUMBOSACRAL SPINE CLINICAL INFORMATION: M54.50 - Low back pain, unspecified COMPARISON: None available. TECHNIQUE: AP and lateral views FINDINGS: S-shaped curvature of the thoracolumbar spine. Multilevel marginal osteophyte formation and endplate sclerosis and decreased intervertebral disc height. Grade 1 anterolisthesis L4-5. No lytic or blastic lesions. Metallic prosthesis, right hip no fully included in the [id number]. XR/XR lumbar spine 2-3V IMPRESSION: Scoliosis and multilevel thoracolumbar spondylosis. Grade 1 anterolisthesis L4-5. Electronically signed by: Leoncio Escobedo MD 04/11/2025 10:20 AM EDT
--- OUTSIDE RECORDS SUMMARY | 2025-04-11 09:01 | XMS_ITS | Clinical Summary ---
Author Organization [facility] Address [address] [place] [address] Care Team Providers Care Web Press Jogger Name Role Phone Isidro Stanford MD Primary [...] age to complete this topic Care Teams Web Press Jogger Relationship Specialty Start Date End Date Isidro Stanford MD PCP - General Internal Medicine 07/10/15
--- OUTSIDE RECORDS SUMMARY | 2025-04-11 09:01 | XMS_ITS | Clinical Summary ---
Author Organization [facility] it Address [address] [place] [address] Care Team Providers Care Medical Authorization Specialist Name Role Phone Isidro Stanford MD Primary Care Provider [phone] Surgical History Surgery Date Site/Laterality Comments HIP [...] age to complete this topic Care Teams Medical Authorization Specialist Relationship Specialty Start Date End Date Isidro Stanford MD PCP - General Internal Medicine 07/10/15
== END 2025-04-11 08:24 | disposition home or self-care (01) ==
LOC: HO.HMGCX 08:23
PROVIDERS: PCP Nurse Practitioner Family; Visit Provider Physician Assistant Medical
DX: M54.50 Low back pain, unspecified (principal)
CPT/HCPCS: 72100

== ENCOUNTER → 2025-04-11 08:28 | Outpatient (BNV) | payer MEDICARE, MEDICAID, SELFPAY | PROVIDERS: PCP Nurse Practitioner Family; Visit Provider Radiology Diagnostic Radiology | DX: M41.25 Other idiopathic scoliosis, thoracolumbar region (principal) | CPT/HCPCS: 72100 ==

== ENCOUNTER 2025-04-24 06:02 | Outpatient (REF) | payer MEDICARE, MEDICAID, SELFPAY ==
--- OUTSIDE RECORDS SUMMARY | 2025-04-24 06:05 | XMS_ITS | Clinical Summary ---
Author Organization [facility] Address [address] [place] [address] Care Team Providers Care Value Analysis Coordinator Name Role Phone Isidro Stanford MD Primary [...] age to complete this topic Care Teams Value Analysis Coordinator Relationship Specialty Start Date End Date Isidro Stanford MD PCP - General Internal Medicine 07/10/15
--- OUTSIDE RECORDS SUMMARY | 2025-04-24 06:05 | XMS_ITS | Clinical Summary ---
Author Organization [facility] Address [address] [place] [address] Care Team Providers Care Nut Former Name Role Phone Isidro Stanford MD Primary Care Provider Surgical History Surgery Date Site/Laterality Comments HIP [...] 07/30/2022 Hypertension/CHF/CAD Annual BMP Blood Test 07/31/2022 Depression Screening 08/23/2024 Falls Risk Assessment 12/08/2024 COVID-19 Vaccine ( season) 2025 11/04/2021, 10/25/2020, 09/27/2020 Influenza Vaccine (#1) 2025 , 06/08/2019, 06/08/2018, [...] age to complete this topic Care Teams Nut Former Relationship Specialty Start Date End Date Isidro Stanford MD PCP - General Internal Medicine 07/10/15
[2025-04-24 11:17] LABS: Alanine Aminotransferase 17 U/L (0-40); Albumin Level 4.3 g/dL (3.5-5.0); Alkaline Phosphatase 62 U/L (39-117); Anion Gap 11 (12-20); Aspartate Amino Transferase 27 U/L (5-37); Blood Urea Nitrogen 14 mg/dL (9-16); Calcium 9.2 mg/dL (8.4-10.2); Carbon Dioxide 28 mmol/L (22-29); Chloride 105 mmol/L (96-108); Cholesterol 191 mg/dL (<200); Estimated Glomerular Filt Rate > 60; HDL Cholesterol 42 mg/dL (>40); Potassium 4.1 mmol/L (3.3-5.1); Sodium 140 mmol/L (135-145); Total Protein 7.1 g/dL (6.5-8.0); Triglycerides 176 mg/dL (<150)
== END 2025-04-24 06:03 | disposition home or self-care (01) ==
LOC: HO.HMGCLDS 06:02
PROVIDERS: PCP Nurse Practitioner Family; Visit Provider Nurse Practitioner Family
DX: E78.5 Hyperlipidemia, unspecified (principal)
CPT/HCPCS: 36415; 80053; 80061

== ENCOUNTER 2025-04-26 13:46 | Outpatient (AMB) | payer MEDICARE, MEDICAID, SELFPAY ==
--- NOTE | 2025-04-26 13:47 | MHC.OFFVIS ---
Intake Visit Reasons: Elevated PSA Intake Note: Patient is present via telehealth for elevated PSA 03/09 PSA: 4.72 Total Testo:205 Free Testo:27.9 Urology Medication:none Antibiotic Allergy:none Blood Thinner:none Road Mechanic Required: No Allergies atorvastatin Adverse Reaction (Mild, Verified 04/26/25 13:47) Joint Pain Medication List - Last Reconciled 04/26/25 by Braxton Hodges MD albuterol sulfate 90 mcg/actuation 2 puffs inhalation Q6H PRN amlodipine 10 mg PO DAILY apple cider vinegar mg PO ascorbate calcium (vitamin C) 500 mg PO DAILY aspirin 81 mg PO DAILY cetirizine 10 mg PO DAILY cyclobenzaprine 5 mg PO Q8H PRN 7 days ezetimibe 10 mg PO DAILY 90 days fluticasone propionate 50 mcg/actuation (Allergy Relief (fluticasone)) 2 sprays intranasal DAILY PRN gabapentin 300 mg PO DAILY PRN methadone 6 mg PO QDAY naproxen 500 mg PO Q12H PRN 7 days prednisone 50 mg PO QAM testosterone cypionate 200 mg IM .q2 week valsartan-hydrochlorothiazide 320-12.5 mg 1 tab PO DAILY HPI Comments Details: 04/26/25--Rafi is a 64-year-old male who is being followed for low testosterone he has been on testosterone replacement therapy. Telehealth follow-up scheduled to review labs. He had a PSA done on 03/09/2025 resulting 4.72 ng/mL. Total testosterone -205, free testosterone is 27.9 which are both below normal level. History of Present Illness The patient is a 64-year-old male presenting with low testosterone and elevated prostate-specific antigen (PSA) levels. The patient has been on testosterone replacement therapy and is being followed for low testosterone levels. His total testosterone level was recorded at 205 ng/dL, and free testosterone at 27.9 pg/mL, both below normal levels. He adheres to the prescribed regimen of testosterone administration every two weeks, although the timing of administration may affect the levels. The patient's PSA level was noted to be 4.72 ng/mL, which is slightly elevated compared to the high normal of 4.0 ng/mL. A previous PSA reading in August was 2.9 ng/mL, indicating a recent increase. We will repeat PSA and testosterone. Results - Total testosterone: 205 ng/dL - Free testosterone: 27.9 pg/mL - Prostate-specific antigen (PSA): 4.72 ng/mL 01/08/25--presents for telehealth visit he is on testosterone replacement for low testosterone. He was last evaluated 11/03/2024 and even with testosterone replacement therapy persisted with low testosterone levels. Testosterone was increased from 200 mg once a month to 200 mg every 2 weeks. I have reviewed repeat testosterone levels total testosterone 808, free testosterone 126, Hct 47.2. The patient states he does note a difference in mood and energy. I discussed continuing to monitor blood levels repeat in 3 months along with PSA. Results: Labs-12/29/2024--total testosterone 808 ng/dL; free testosterone 126 pg/mL, hematocrit 47.2 % Labs 09/05/2024--PSA-2.90 ng/mL 11/03/24--presents for telehealth visit he is on testosterone replacement for low testosterone. I have reviewed repeat testosterone levels total testosterone 194, free testosterone 26.2, prolactin 6.2. I will increase testosterone from 200 mg once a month to 200 mg every 2 weeks. Repeat levels in 2 months. 10/16/24--Rafi is here for evaluation for low testosterone and erectile dysfunction. The patient is currently on testosterone replacement. IIEF-5 score - 19. He is on chronic methodone use. Will cont testosterone replacement and monitor levels. Check Hct. [facility] Medical History Hypertension Chest congestion GERD (gastroesophageal reflux disease) Axonal sensorimotor neuropathy Surgical History S/P left knee arthroscopy History of right hip replacement Family History Mother CHF (congestive heart failure) Social History Housing: House Alcohol intake: current Alcohol intake frequency: holidays/special occasions only Comment: once a month Patient Tobacco Use Status: Never used Tobacco e-Cigarette/Vaping Use: Never Used Second Hand Smoke Exposure: No service: No Current occupational status: disabled Cognitive needs: No Hearing needs: No Vision needs: No Review of Systems Const All systems reviewed & are unremarkable except as noted in HPI and below Reports no additional complaints Eyes Reports no additional complaints ENT Reports no additional complaints Card Reports no additional complaints Resp Reports no additional complaints GI Reports no additional complaints Reports as per HPI Musc Reports no additional complaints Skin/Breast Reports system reviewed and no additional complaints, except as documented Neuro Reports no additional complaints Psych Reports no additional complaints Endo Reports no additional complaints Renny/Lymph Reports no additional complaints Aller/Immun Reports no additional complaints Telehealth Telehealth Telehealth Platform: Telephone Location of provider rendering services: practice address Location of patient: address on file Patient Identification confirmed using: Name, : Yes Telehealth method: voice only Patient verbally consented to treatment: Yes Patient verbally consented to billing insurance company: Yes Patient informed of any privacy concerns related to visit: Yes Minutes spent on Phone/Video with Pt.: 16 Assessment & Plan Assessment & Plan (1) Hypogonadism in male: Code(s): E29.1 - Testicular hypofunction Category: Medical (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, unspecified, uncomplicated Category: Medical (3) Long-term current use of testosterone replacement therapy: Code(s): Z79.890 - Hormone replacement therapy Category: Medical (4) Low testosterone: Code(s): R79.89 - Other specified abnormal findings of blood chemistry Category: Medical Plan Repeat labs, PSA, Testosterone Patient Instructions: The patient had an opportunity to ask questions regarding treatment plan. The patient expressed understanding and agreement with the above treatment plan. The patient is aware they should contact our office by phone for worsening of their current condition or the appearance of new symptoms. Compliance is encouraged with any medications and followup testing that is ordered. It is a privilege to be allowed the opportunity to participate in the urologic care of your patient. If you have any questions or concerns regarding treatment for the above conditions please do not hesitate to contact me. The office telephone contact is [phone]. This note is constructed in part using voice recognition software. While every effort has been made to ensure accuracy collections agent errors may have been included. Yours sincerely, Braxton Hodges MD Scribe Plan - Not visible on output: Patient was informed and verbally consented to the use of an ambient scribe for clinic note documentation during this visit. Coding Level of Care Code Tele Est Pt Level 4 (47677) Complex EM visit Add On G2211 Diagnoses Hypogonadism in male E29.1 Methadone use F11.90 Long-term current use of testosterone replacement therapy Z79.890 Low testosterone R79.89
--- OUTSIDE RECORDS SUMMARY | 2025-04-26 15:02 | XMS_ITS | Clinical Summary ---
Author Organization [facility] it Address [address] [place] [address] Care Team Providers Care Heel Blacker Name Role Phone Isidro Stanford MD Primary Care Provider [phone] Surgical History Surgery Date Site/Laterality Comments HIP [...] age to complete this topic Care Teams Heel Blacker Relationship Specialty Start Date End Date Isidro Stanford MD PCP - General Internal Medicine 07/10/15
--- OUTSIDE RECORDS SUMMARY | 2025-04-26 15:02 | XMS_ITS | Clinical Summary ---
Author Organization [facility] Address [address] [place] [address] Care Team Providers Care Control Systems Designer Name Role Phone Isidro Stanford MD Primary [...] age to complete this topic Care Teams Control Systems Designer Relationship Specialty Start Date End Date Isidro Stanford MD PCP - General Internal Medicine 07/10/15
== END 2025-04-26 14:49 | disposition home or self-care (01) ==
LOC: HO.HUSH 13:46
PROVIDERS: PCP Nurse Practitioner Family; Visit Provider Urology
DX: E29.1 Testicular hypofunction (principal); F11.90 Opioid use, unspecified, uncomplicated; Z79.890 Hormone replacement therapy; R79.89 Other specified abnormal findings of blood chemistry
CPT/HCPCS: 99214; G2211

== ENCOUNTER 2025-06-07 06:01 | Outpatient (REF) | payer MEDICARE, MEDICAID, SELFPAY ==
--- OUTSIDE RECORDS SUMMARY | 2025-06-07 06:03 | XMS_ITS | Clinical Summary ---
Author Organization [facility] it Address [address] [place] [address] Care Team Providers Care Manager Mechanical Maintenance Name Role Phone Isidro Stanford MD Primary Care Provider [phone] Surgical History Surgery Date Site/Laterality Comments HIP [...] Health Maintenance Due Date Last Done Comments Colorectal Cancer Screening: Colonoscopy 1959 DTaP,Tdap,and Td Vaccines (1 - Tdap) 12/08/1978 Hepatitis A Vaccines (1 of 2 - Risk 2-dose series) 12/08/1978 Pneumococcal Vaccine: 50+ Years (1 of 1 - PCV) 12/08/2009 Zoster Vaccines (1 of 2) 12/08/2009 Abdominal Aortic Aneurysm (AAA) Screen 07/30/2022 Cholesterol Screening (Lipid Panel) 07/30/2022 Hepatitis C Screening 07/30/2022 Medicare Annual [...] to complete this topic Care Teams Manager Mechanical Maintenance Relationship Specialty Start Date End Date Isidro Stanford MD PCP - General Internal Medicine 07/10/15
--- OUTSIDE RECORDS SUMMARY | 2025-06-07 06:03 | XMS_ITS | Clinical Summary ---
Author Organization [facility] Address [address] [place] [address] Care Team Providers Care Cellar Hand Name Role Phone Isidro Stanford MD Primary [...] 11/10/2023 11/09/2022, 09/10/2021, 05/03/2020, Additional history exists Preventative Health Evaluation 07/06/2024 07/06/2023, 06/08/2022, 06/05/2021, Additional history exists Fall Risk Assessment 12/08/2024 Pneumococcal Vaccine (1 of 1 - PCV) 12/08/2024 COVID-19 Vaccine (4 - season) 2025 11/04/2021, 10/25/2020, 09/27/2020 Influenza Vaccine (#1) 2025 , 07/02/2020, 06/08/2019, [...] age to complete this topic Care Teams Cellar Hand Relationship Specialty Start Date End Date Isidro Stanford MD PCP - General Internal Medicine 07/10/15
--- OUTSIDE RECORDS SUMMARY | 2025-06-07 06:03 | XMS_ITS | Data Portability ---
Author Organization [place] - [facility], Allergy Address [address] [address] Care Team Providers Care Chef French Name Role Phone BARBIEASHIA BRADFORD Referring Provider [phone] Assessment Encounter Date Assessment Date Assessment LastModified by Organization Details LastModified Time 05/11/2025 05/11/2025 64-year-old male presents for evaluation of chronic sinusitis. CT sinus 01/21/2024 at [facility] demonstrated moderate mucosal thickening within the left maxillary sinus which exhibits sclerotic wall thickening as a sequelae of chronic sinusitis, mild mucosal thickening within the right maxillary sinus with sclerotic wall thickening, partial opacification of the left maxillary ostium and infundibulum, mild mucosal thickening within the anterior ethmoid air cells and inferior frontal sinuses, right sided septal deviation, periapical lucency surrounding the root of the left lateral maxillary incisor, and mulberry type mucosal hypertrophy of the inferior turbinates bilaterally. Nasal endoscopy demonstrated 3+ septal deviation to the right, turbinate hypertrophy, and thick mucoid rhinorrhea bilaterally. No cassandra purulence. Given prior CT sinus findings and duration of symptoms, recommended extended course of Augmentin. Also recommended to begin use of Flonase nasal spray once daily for 6 weeks. We will arrange for post treatment CT sinus. I asked patient to contact [facility] radiology department to see if he can obtain a copy of his images which he will bring to his follow-up for comparison. He will follow-up to review the results. If imaging is negative, may consider allergy testing. Patient agrees with the plan and all questions were answered. [email or web address] Not available 05/11/2025 11:04:49 Plan of Treatment Reminders Order Date Submit Date Provider Last Modified By Organization Details Last Modified Time Details Appointments CT Scan 2024 11:00A M [facility] Not available Not available Not available New Patient 30 2024 11:30A M Josh Thurston, DO Not available Not available Not available Lab None recorded. Referral None recorded. Procedures None recorded. Surgeries None recorded. Imaging CT, sinuses, w/o contrast - in house CT, Xoran 2024 Not available 05/14/2025 10:43:04 Medication Orders amoxicill in 875 mg-potass ium clavulana te 125 mg tablet 2024 [facility] #[id number], [address] [facility] , [place], [address], 05/11/2025 11:00:21 Patient TargetsNo targets recorded. Patient InstructionsNo instructions recorded. Reason for Referral None Reported. Results Created Date Observation Date Name Description Value Unit Range Abnormal Flag Note LastModifiedBy Organization Detail LastModifiedTime 05/11/[address], sinus es, w/o contr ast No observ ation record ed. [email or web address] Not Available 11:19:46 Result Notes None recorded. Problems Name Problem SNOMED Code Status Onset Date Resolution Date Notes Provider Name and Address Organization Details Recorded Time Chronic sinusitis 04776391 Active GEOVANNA CRENSHAW PA-C [address] [place] [address], [place], [phone], [facility] - [facility] 5 10:57:39 Posterior rhinorrhea 73671017 Active GEOVANNA CRENSHAW PA-C [address] [place] [address], [place], [address], [facility] - [facility] [place] 5 10:57:44 Nasal congestion 06261568 Active GEOVANNA RCENSHAW PA-C [address] [place] [address], [place], [address], [facility] - [facility] [place] 5 10:57:47 Deviated nasal septum 847066350 Active GEOVANNA CRENSHAW PA-C [address] [facility], [place], [address], [place] - [facility] 10:57:54 Problem Notes None recorded. Procedures Surgical History Date Name Laterality Status Provider Name and Address Organization Details Recorded Time NasalEndoscopy_ DP completed GEOVANNA CRENSHAW PA-C [address] [facility] [address], [place], [address], [facility] - [facility] [place] 05/11/2025 10:57:29 total replacement of right hip joint completed Maritza Verma [place] - [facility] 05/11/2025 10:23:02 repair of joint of left knee completed Maritza Verma [place] - [facility] 05/11/2025 10:23:30 Imaging Results None recorded. Procedure Notes None recorded. Medical Equipment None Reported. Allergies No known drug allergies Medications Name Sig Start Date Stop Date Status Note LastModified by Organization Details LastModified Time atorvastatin 20 mg tablet TAKE 1 TABLET BY MOUTH DAILY active Not Available Not Available Not Available cetirizine 10 mg tablet TAKE 1 TABLET ORALLY DAILY active Not Available Not Available No t Available aspirin 81 mg tablet,delay ed release TAKE 1 TABLET BY MOUTH EVERY DAY active Not Available Not Available No t Available amlodipine 10 mg tablet TAKE 1 TABLET BY MOUTH DAILY. active Not Available Not Available No t Available prednisone 50 mg tablet TAKE 1 TABLET BY MOUTH EVERY DAY IN THE MORNING active Not Available Not Available No t Available gabapentin 300 mg capsule TAKE 1 CAPSULE BY MOUTH EVERY DAY FOR 30 DAYS active Not Available Not Available No t Available omeprazole 20 mg capsule,elvira yed release TAKE 1 CAPSULE BY MOUTH TWICE A DAY active Not Available Not Available No t Available testosterone cypionate 200 mg/mL intramuscula r oil INJECT 200 MG (1 ML) INTRAMUSCUL CIELO EVERY 2 WEEKS active Not Available Not Available No t Available fluticasone propionate 50 mcg/actuatio n nasal spray,suspen sami SPRAY 2 SPRAYS INTO EACH NOSTRIL DAILY active Not Available Not Available No t Available naproxen 500 mg tablet TAKE 1 TAB EVERY 12 HOURS NEEDED FOR PAIN FOR 7 DAYS active Not Available Not Available No t Available amoxicillin 875 mg-potassium clavulanate 125 mg tablet TAKE 1 TABLET BY MOUTH EVERY 12 HOURS FOR 21 DAYS active Not Available Not Available Not Available Laxative (bisacodyl) 5 mg tablet,delay ed release TAKE 4 TABS AT NOON THE DAY BEFORE YOUR COLONOSCOPY active Not Available Not Available Not Available ezetimibe 10 mg tablet TAKE 1 TABLET (10 MG) ORALLY DAILY FOR 90 DAYS active Not Available Not Available No t Available cyclobenzapr ine 5 mg tablet TAKE 1 TABLET ORALLY EVERY 8 HOURS NEEDED FOR MUSCLE SPASM FOR 7 DAYS active Not Available Not Available No t Available valsartan 320 mg-hydrochlo rothiazide 12.5 mg tablet TAKE 1 TABLET BY MOUTH EVERY DAY active Not Available Not Available No t Available Gavilax 17 gram/dose oral powder TAKE 238 GRAMS BY MOUTH DIRECTED BY GASTRO DEPARTMENT active Not Available Not Available N ot Available Vitals Date Recorded Body height Body mass index (BMI) Body weight Provider Name and Address Organization Details Last Updated DateTime 05/11/2025 180.34 cm 32.5 kg/m2 154907.02 g Maritza Verma [place] - [facility] 05/11/2025 10:01:55 Social History None recorded. Functional Status Question Answer Note LastModified by Organizat ion Details LastModified Time What is your level of alcohol consumption? Occasional [email or web address] Information not available 05/11/2025 Mental Status None recorded. Family History Nothing Reported. Medical History Condition Response Allergies/Hayfever N Heart Problems N Anxiety N Tonsil Infections N Emphysema N Migraines Y Thyroid Problems N Glaucoma N Developmental Delay N Depression N COPD N Nasal or Sinus Problems N Anemia N Immune System Disorder N Anesthesia Complications N Heart Attack (TN) N Other Skin Condition N Diabetes N Rhinitis N Bleeding Disorder N Food Allergy N Hearing Loss N Arthritis Y Hyperlipidemia N Cancer N Stroke N Dementia N Nasal polyps N Asthma N Sleep Disorder N High Cholesterol N GERD/Reflux N Liver Disease N Headaches Y Fibromyalgia N Hypertension Y Speech Delay N Kidney Disease N Past Encounters Encounter ID Performer Location Encounter Start Date Encounter Closed Date Diagnosis/Indication Diagnosis SNOMED-CT Code Diagnosis ICD10 Code Diagnosis IMO Codes Diagnosis Note [id number] GEOVANNA CRENSHAW PA-C [facility] [address] [address] 05/11/2025 09:49:51 05/11/2025 10:51:35 Chronic sinusitis 05441119 J32.8 25473 Posterior rhinorrhea 758 06578 R09.82 650515 Nasal congestion 0960656 0 R09.81 24881 Deviated nasal septum 12 0636760 J34.2 901086 Health Concerns Section Related Observation LastModified by Organization Detai ls LastModified Time None Recorded Concern Status LastModified by Organization Details LastModified Time None Recorded Advance Directives Directive None Recorded Payers Insurance Date Sequence Insurance Name Policy Number Policy [place] Covered Member ID [place] Member ID Guarantor Name 05/11/2025 1 [place] [facility] Rafi Elim [id number] Rafi L Elim 05/11/2025 1 [place] [facility] Rafi L Elim [id number] Rafi L Elim 05/11/2025 2 [place] [facility] Rafi L Elim [id number] Rafi L Elim 05/11/2025 2 [place] [facility] Rafi L Karli [id number] Rafi L Karli Notes Date Note Type Note Provider Name and Address Organization Details Recorded Time 05/11/2025 text/html ROS as noted in the HPI 64-year-old male presents for evaluation of chronic postnasal drip and nasal congestion. He was seen by Dr. Bashir in [address] sinus showed chronic sinus disease at that time. He reports no further intervention was recommended. He reports 2 sinus infections in 2 years treated with oral antibiotics by his PCP with some improvement in symptoms. Last infection was over a year ago. Reports chronic PND and nasal congestion. Occasionally gets headaches and nasal pain. Tried Flonase without significant improvement. He reports about 4 years ago, he had his teeth extracted and was fitted for dentures which he reports they do not fit well. Denies history of allergic rhinitis or prior allergy testing. History of nasal trauma, but no prior nasal surgeries. 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 GEOVANNA CRENSHAW PA-C [address] [place] [address], [address], [facility] - [facility] 05/11/2025 11:08:49
[2025-06-07 11:24] LABS: Prostate Specific Antigen 3.01 ng/mL (<0.05-4.0)
[2025-06-13 15:53] LABS: Testosterone, Free 307.5 pg/mL (35.0-155.0)
== END 2025-06-07 06:02 | disposition home or self-care (01) ==
LOC: HO.HMGCLDS 06:01
PROVIDERS: PCP Nurse Practitioner Family; Visit Provider Urology
DX: E29.1 Testicular hypofunction (principal); R79.89 Other specified abnormal findings of blood chemistry; Z12.5 Encounter for screening for malignant neoplasm of prostate; Z79.890 Hormone replacement therapy
CPT/HCPCS: 36415; 84153; 84402; 84403

== ENCOUNTER 2025-06-08 12:42 | Outpatient (AMB) | payer MEDICARE, MEDICAID, SELFPAY ==
[2025-06-08 13:04] VITALS: BP 118/60; PULSE 74; BMI 33.4
--- NOTE | 2025-06-08 13:04 | MHC.OFFVIS ---
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-C albuterol sulfate 90 mcg/actuation 2 puffs inhalation Q6H PRN amlodipine 10 mg PO DAILY apple cider vinegar mg PO ascorbate calcium (vitamin C) 500 mg PO DAILY aspirin 81 mg PO DAILY cetirizine 10 mg PO DAILY ezetimibe 10 mg PO DAILY 90 days fluticasone propionate 50 mcg/actuation (Allergy Relief (fluticasone)) 2 sprays intranasal DAILY PRN gabapentin 300 mg PO DAILY PRN methadone 4 mg PO QDAY testosterone cypionate 200 mg IM .q2 week valsartan-hydrochlorothiazide 320-12.5 mg 1 tab PO DAILY HPI HPI 6mth f/up: Details: Rafi is a 64-year-old male with past medical history of hypertension, GERD, coronary calcifications on CT scan, atypical chest discomfort, nonobstructive CAD who presents for follow-up. Today he reports he has been doing well with no concerning symptoms. He denies any recent or recurrent chest discomfort. No shortness of breath, PND, orthopnea or edema. No concerning palpitations, no lightheadedness, presyncope, syncope. He reports good activity tolerance. Says he is overdue for colonoscopy. Not having issues but hoping to have it done in near future. [facility] Medical History Hypertension Chest congestion GERD (gastroesophageal reflux disease) Axonal sensorimotor neuropathy Surgical History S/P left knee arthroscopy History of right hip replacement Family History Mother CHF (congestive heart failure) Social History Housing: House Alcohol intake: current Alcohol intake frequency: holidays/special occasions only Comment: once a month Patient Tobacco Use Status: Never used Tobacco e-Cigarette/Vaping Use: Never Used Second Hand Smoke Exposure: No service: No Current occupational status: disabled Cognitive needs: No Hearing needs: No Vision needs: No Review of Systems Const All systems reviewed & are unremarkable except as noted in HPI and below Denies daytime sleepiness, Denies difficulty sleeping, Denies snoring, Denies stops breathing during sleep and Denies weakness Card Denies chest pain, Denies rapid heart rate, Denies irregular heart rhythm, Denies claudication, Denies leg edema, Denies lightheadedness, Denies palpitations, Denies dyspnea, Denies dyspnea on exertion, Denies orthopnea, Denies paroxysmal nocturnal dyspnea and Denies slow heart rate Resp Denies cough, Denies dyspnea, Denies dyspnea on exertion and Denies snoring GI Reports no additional complaints, Denies hematochezia, Denies change in stool character and Denies dyspepsia Musc Denies abnormal gait, Denies muscle weakness and Denies numbness Neuro Denies abnormal gait, Denies numbness and Denies weakness Endo Denies palpitations Physical Exam Vital Signs: Last Vital Signs Pulse 74 06/08/25 13:04 BP 118/60 06/08/25 13:04 BMI result Body Mass Index 33.4 Const General: cooperative, healthy appearing, comfortable and no acute distress Orientation/consciousness: patient oriented x3 Neck Neck: Yes normal visual inspection and Yes no JVD Resp Effort & Inspection: normal respiratory effort Auscultation: clear to auscultation bilaterally, no crackles, no rales, no rhonchi and no wheezes Cardio Jugular venous distension: no JVD Rate: regular rate Rhythm: regular rhythm Heart sounds: S1 normal heart sound present, S2 normal heart sound present, no murmurs and no rubs Neuro General: patient oriented x3 Extrem General: Yes normal to inspection and No no pedal edema Psych Appearance: grossly normal Mental Status: mental status grossly normal Speech and movement: Normal speech and movement present Assessment & Plan Assessment & Plan (1) Chest discomfort: Code(s): R07.89 - Other chest pain Category: Medical Plan: Prior reports of atypical chest discomfort leading to cardiac evaluation with findings suggestive of nonobstructive coronary artery disease. He has cardiac risk factors of hypertension and family history. A CTA of the chest done 06/30/2024 shows moderate coronary calcifications. An echocardiogram done 08/25/2024 showed EF 55-60%, impaired relaxation, mild biatrial enlargement, ascending aorta 4.3 cm. A nuclear stress test on 11/23/2024 with exercise just over 5 minutes with moderate shortness of breath, no EKG changes and normal myocardial perfusion imaging. Currently no anginal symptoms. Will continue with med management and risk factor modification. Continue aspirin 81 mg daily. Will manage his cholesterol with ideal LDL goal less than 70. Benefits a weight loss and increasing physical activity reviewed. Signs and symptoms of angina reviewed with him. Cardiology follow-up 6 months, sooner if needed. (2) Palpitations: Code(s): R00.2 - Palpitations Category: Medical Plan: Prior reports of intermittent brief fluttering in his chest, lasting seconds. There is a family history of atrial fibrillation in his mother and maternal aunt. Holter monitor done 08/25/2024 for 3 days shows sinus rhythm with average heart rate 74, SVE 2.5% of time, rare ventricular ectopy, longest 3 beats. He is likely feeling the SVE's. Clinically in sinus rhythm today. Reviewed caffeine reduction, good hydration, activity as tolerated. (3) Hypertension: Code(s): I10 - Essential (primary) hypertension Category: Medical Qualifiers: Hypertension type: unspecified Qualified Code(s): I10 - Essential (primary) hypertension Plan: Blood pressure goal less than 130/80. Well controlled at present. Labs 04/24/2025 shows potassium 4.1, creatinine 0.83. Continue amlodipine, valsartan/hydrochlorothiazide. (4) Coronary artery calcification seen on CAT scan: Code(s): I25.10 - Atherosclerotic heart disease of [place] coronary artery without angina pectoris Category: Medical Plan: As above. (5) Preop cardiovascular exam: Code(s): Z01.810 - Encounter for preprocedural cardiovascular examination Category: Medical Plan: Addendum previously added to his last office note on 12/01/2024. This finding still holds. Patient can proceed with colonoscopy with low cardiac risk. Aspirin can be held if needed for the procedure and restart as soon (6) Dyslipidemia: Code(s): E78.5 - Hyperlipidemia, unspecified Category: Medical Plan: [place] LDL goal less than 70 in patient with CAD. He is intolerant to statins with reports of myalgias. He is now on Zetia 10 mg daily and labs done 04/24/2025 showed LDL 114. Will order Repatha. Self injections reviewed with him and he is willing to proceed. Will plan for fasting lipids 6-8 weeks after start of injections. Plan Time spent on chart review, documentation, interview and assessment Orders: Orders Lipid Panel 2 Months E78.5 - Hyperlipidemia, unspecified Medications: New evolocumab (Repatha Eliazar) 140 mg subcut Q2W 6 mL 3RF Coding Level of Care Code Est Pt Level 4 (55690) Complex EM visit Add On G2211 Diagnoses Chest discomfort R07.89 Palpitations R00.2 Hypertension, unspecified type I10 Hypertension type: unspecified Coronary artery calcification seen on CAT scan I25.10 Preop cardiovascular exam Z01.810 Dyslipidemia E78.5 Time Spent (min) 32
--- OUTSIDE RECORDS SUMMARY | 2025-06-08 15:02 | XMS_ITS | Clinical Summary ---
Author Organization [facility] Address [address] [place] [address] Care Team Providers Care Development Lead Name Role Phone Isidro Stanford MD Primary [...] age to complete this topic Care Teams Development Lead Relationship Specialty Start Date End Date Isidro Stanford MD PCP - General Internal Medicine 07/10/15
--- OUTSIDE RECORDS SUMMARY | 2025-06-08 15:02 | XMS_ITS | Clinical Summary ---
Author Organization [facility] it Address [address] [place] [address] Care Team Providers Care Gas Burner Operator Name Role Phone Isidro Stanford MD Primary Care Provider [phone] Surgical History Surgery Date Site/Laterality Comments HIP [...] age to complete this topic Care Teams Gas Burner Operator Relationship Specialty Start Date End Date Isidro Stanford MD PCP - General Internal Medicine 07/10/15
== END 2025-06-08 13:39 | disposition home or self-care (01) ==
LOC: HO.HCS 12:43
PROVIDERS: PCP Nurse Practitioner Family; Visit Provider Nurse Practitioner Family
DX: R07.89 Other chest pain (principal); R00.2 Palpitations; I10 Essential (primary) hypertension; I25.10 Atherosclerotic heart disease of native coronary artery without angina pectoris; Z01.810 Encounter for preprocedural cardiovascular examination; E78.5 Hyperlipidemia, unspecified
CPT/HCPCS: 99214; G2211

== ENCOUNTER → 2025-06-08 12:42 | Outpatient (BNVA) | payer MEDICARE, MEDICAID, SELFPAY | PROVIDERS: PCP Nurse Practitioner Family; Visit Provider Nurse Practitioner Family | DX: Z01.810 Encounter for preprocedural cardiovascular examination (principal); R07.89 Other chest pain; I25.10 Atherosclerotic heart disease of native coronary artery without angina pectoris; I10 Essential (primary) hypertension; E78.5 Hyperlipidemia, unspecified; R00.2 Palpitations | CPT/HCPCS: 99212 ==

== ENCOUNTER 2025-06-15 15:45 | Outpatient (AMB) | payer MEDICARE, MEDICAID, SELFPAY ==
--- NOTE | 2025-06-15 15:46 | A.OFFVIS_ITS ---
Intake Visit Reasons: 6w/PSA/Testo Intake Note: Patient is present via telehealth for 6w/PSA/testo Urology Medication: testosterone Blood Thinner: apirin labs done 06/07/25: TT 1610, free testo 307.5, PSA 3.01 Catalogue And Special Products Manager Required: No Accompanied by: Self / Same As Patient Allergies atorvastatin Adverse Reaction (Mild, Verified 06/15/25 15:49) Joint Pain HPI Comments Details: 06/15/25--Rafi is a 64-year-old male here for follow-up labs he is on testosterone replacement total testosterone 1610 free testosterone 307 0.5 PSA 3.01 History of Present Illness The patient is a 64-year-old male presenting with follow-up labs related to testosterone replacement therapy. The patient has been on testosterone replacement therapy, with recent labs showing a total testosterone level of 1610 and a free testosterone level of 307, which are significantly elevated. The patient reports adjusting the timing of his lab tests to a few days after his testosterone dose, which may have contributed to the elevated levels. The patient is currently dosing 200 mg of testosterone every 15 days, marked on his calendar, and reports feeling better with this regimen compared to previous cycles where he felt unwell towards the end. Discussed adjusting the dosage to 1.5 mL every 15 days to manage the elevated testosterone levels. The patient's PSA level was noted to be 3.01, which is an improvement, and will be re-evaluated in a few months. Results Labs-06/07/25 - Total testosterone: 1610 - Free testosterone: 307 - PSA: 3.01 Plan 1. Testosterone replacement therapy - Adjust testosterone dosage to 1.5 mL every 15 days to manage elevated levels. - Monitor testosterone levels in two months. 2. Elevated Psa Levels - Re-evaluate PSA levels in a few months to monitor. 04/26/25--Rafi is a 64-year-old male who is being followed for low testosterone he has been on testosterone replacement therapy. Telehealth follow-up scheduled to review labs. He had a PSA done on 03/09/2025 resulting 4.72 ng/mL. Total testosterone -205, free testosterone is 27.9 which are both below normal level. History of Present Illness The patient is a 64-year-old male presenting with low testosterone and elevated prostate-specific antigen (PSA) levels. The patient has been on testosterone replacement therapy and is being followed for low testosterone levels. His total testosterone level was recorded at 205 ng/dL, and free testosterone at 27.9 pg/mL, both below normal levels. He adheres to the prescribed regimen of testosterone administration every two weeks, alt hilda the timing of administration may affect the levels. The patient's PSA level was noted to be 4.72 ng/mL, which is slightly elevated compared to the high normal of 4.0 ng/mL. A previous PSA reading in August was 2.9 ng/mL, indicating a recent increase. We will repeat PSA and testosterone. Results - Total testosterone: 205 ng/dL - Free testosterone: 27.9 pg/mL - Prostate-specific antigen (PSA): 4.72 ng/mL 01/08/25--presents for telehealth visit he is on testosterone replacement for low testosterone. He was last evaluated 11/03/2024 and even with testosterone replacement therapy persisted with low testosterone levels. Testosterone was increased from 200 mg once a month to 200 mg every 2 weeks. I have reviewed repeat testosterone levels total testosterone 808, free testosterone 126, Hct 47.2. The patient states he does note a difference in mood and energy. I discussed continuing to monitor blood levels repeat in 3 months along with PSA. Results: Labs-12/29/2024--total testosterone 808 ng/dL; free testosterone 126 pg/mL, hematocrit 47.2 % Labs 09/05/2024--PSA-2.90 ng/mL 11/03/24--presents for telehealth visit he is on testosterone replacement for low testosterone. I have reviewed repeat testosterone levels total testosterone 194, free testosterone 26.2, prolactin 6.2. I will increase testosterone from 200 mg once a month to 200 mg every 2 weeks. Repeat levels in 2 months. 10/16/24--Rafi is here for evaluation for low testosterone and erectile dysfunction. The patient is currently on testosterone replacement. IIEF-5 score - 19. He is on chronic methodone use. Will cont testosterone replacement and monitor levels. Check Hct. [facility] Medical History Hypertension Chest congestion GERD (gastroesophageal reflux disease) Axonal sensorimotor neuropathy Surgical History S/P left knee arthroscopy History of right hip replacement Family History Mother CHF (congestive heart failure) Social History Housing: House Alcohol intake: current Alcohol intake frequency: holidays/special occasions only Comment: once a month Patient Tobacco Use Status: Never used Tobacco e-Cigarette/Vaping Use: Never Used Second Hand Smoke Exposure: No service: No Current occupational status: disabled Cognitive needs: No Hearing needs: No Vision needs: No Review of Systems Const All systems reviewed & are unremarkable except as noted in HPI and below Reports no additional complaints Eyes Reports no additional complaints ENT Reports no additional complaints Card Reports no additional complaints Resp Reports no additional complaints GI Reports no additional complaints Reports as per HPI Musc Reports no additional complaints Skin/Breast Reports system reviewed and no additional complaints, except as documented Neuro Reports no additional complaints Psych Reports no additional complaints Endo Reports no additional complaints Renny/Lymph Reports no additional complaints Aller/Immun Reports no additional complaints Telehealth Telehealth Telehealth Platform: [employer] Location of provider rendering services: practice address Location of patient: address on file Patient Identification confirmed using: Name, : Yes Telehealth method: video Patient verbally consented to treatment: Yes Patient verbally consented to billing insurance company: Yes Patient informed of any privacy concerns related to visit: Yes Assessment & Plan Assessment & Plan (1) 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 Testosterone replacement therapy - Adjust testosterone dosage to 1.5 mL every 15 days to manage elevated levels. - Monitor testosterone levels in two months. 2. Elevated Psa Levels - Re-evaluate PSA levels in a few months to monitor. Medications: New testosterone cypionate (Depo-Testosterone) 150 mg (0.75 mL) IM Q2W 3 mL 1RF 8 weeks Discontinued testosterone cypionate Discontinued Reason: Doctor's Order 200 mg IM .q2 week 2 mL 1RF Patient Instructions: The patient had an opportunity to ask questions regarding treatment plan. The patient expressed understanding and agreement with the above treatment plan. The patient is aware they should contact our office by phone for worsening of their current condition or the appearance of new symptoms. Compliance is encouraged with any medications and followup testing that is ordered. It is a privilege to be allowed the opportunity to participate in the urologic care of your patient. If you have any questions or concerns regarding treatment for the above conditions please do not hesitate to contact me. The office telephone contact is [phone]. This note is constructed in part using voice recognition software. While every effort has been made to ensure accuracy avionics system engineer errors may have been included. Yours sincerely, Braxton Hodges MD Scribe Plan - Not visible on output: Patient was informed and verbally consented to the use of an ambient scribe for clinic note documentation during this visit. Coding Level of Care Code Complex visit Add On G2211 Diagnoses Methadone use F11.90 Long-term current use of testosterone replacement therapy Z79.890 Low testosterone R79.89 Elevated PSA R97.20
--- OUTSIDE RECORDS SUMMARY | 2025-06-15 17:02 | XMS_ITS | Continuity of Care Document ---
Author Organization [place] - [facility], [facility] Address [address] [place] [address] Care Team Providers Care Fruit Dryer Name Role Phone ASHIA WALSH Referring Provider [phone] Assessment Encounter Date Assessment Date Assessment LastModified by Organization Details LastModified Time 06/13/2025 06/13/2025 We reviewed the clinic findings today with the patient and had an extensive discussion on the natural history of their symptoms and the pathology causing them. The patient has progressive and bothersome symptoms noted previously in the HPI consistent with CRSsNP, which have not improved with optimal medical therapy which include group home use of nasal saline, nasal steroid, and multiple antibiotic/stero id courses. These findings were confirmed on Nasal Endoscopy and CT scan . Options were discussed, including conservative management, further medical management with topical, oral, or immunotherapy, and/or surgical intervention. Surgical Discussion: Surgical plan would consist of: Septoplasty, Bilateral Inferior Turbinate Submucosal Reduction, Bilateral Maxillary Antrostomy with Frontal sinusotomy. Bilateral middle turbinectomy We discussed the risks, benefits, and alternatives of surgery, which include bleeding, infection, crusting, scarring, nasal septal perforation, saddle nose deformity, cranial base injury, CSF leak, orbital injury, vision loss/diplopia, need for postoperative splinting, or need for further procedures. The expected recovery period was reviewed, which will likely include postoperative debridements and splint removal. The patient understands this is a chronic condition and that any comorbid allergic/inflamm atory/immunologi c components will also require ongoing management. After reviewing their options, the patient would like to pursue the surgical route. We will work on getting this scheduled at their earliest convenience. The patient understands they can reach out anytime to further clarify questions or concerns. CT/MRI Location & Date for Image guidance: [facility]or[place] on 06/13/25 [email or web address] Not available 06/13/2025 12:24:05 Plan of Treatment Reminders Order Date Submit Date Provider Last Modified By Organization Details Last Modified Time Details Appointments Post Op 2025 03:30P M EUGENE BRUNNER Not available Not available Not available Post Op 2025 02:15P M Josh Thurston DO Not available Not available Not available Lab None recorded. Referral None recorded. Procedures None recorded. Surgeries septoplas ty (SURG) 2024 [email or web address] Not available 06/13/2025 12:29:14 submucous resection inferior turbinate (SURG) 2024 [email or web address] Not available 06/13/2025 12:29:14 endoscopy , nasal/sin us, w/ maxillary antrostom y & tissue removal (SURG) 2024 [email or web address] Not available 06/13/2025 12:29:14 stereotac tic computer- assisted navigatio n (SURG) 2024 [email or web address] Not available 06/13/2025 12:29:14 endoscopy , nasal and sinus (SURG) 2024 [email or web address] Not available 06/13/2025 12:29:14 Imaging None recorded. Medication Orders prednison e 20 mg tablet 2024 [facility]/Pharmacy #[id number], [address] [facility] [place], [address], 06/13/2025 12:25:25 Patient TargetsNo targets recorded. Patient Instructions Encounter Date Encounter Id Patient Instructions Last Modified By Organization Details Last Modified Time 06/13/2025 [id number] - Contact the manager of employee relations to arrange sinus surgery. - Follow up with the oral surgeon for evaluation and potential dental extractions. [email or web address] Not available 06/13/2025 11:50:48 Please note: Parts of this encounter note have been generated by AI based on audio conversation. Patient consent was required prior to utilizing this technology. Content review was required prior to finalizing the note. [email or web address] Not available 06/13/2025 11:50:48 Reason for Referral None Reported. Problems Name Problem SNOMED Code Status Onset Date Resolution Date Notes Provider Name and Address Organization Details Recorded Time Chronic sinusitis 43263824 Active 2024 GEOVANNA CRENSHAW [facility]-C [address] [facility] [place], [place], [address], [facility] - [facility] 10:57:39 Posterior rhinorrhea 91402220 Active 2024 IRASEMA ERICKSONC [address] [facility],[address], [place], [address], [facility] - [facility] 10:57:44 Nasal congestion 23055265 Active 2024 IRASEMA ERICKSONC 100 [facility], [address] [facility], [place], [address], [facility] - [facility] 10:57:47 Deviated nasal septum 195110523 Active 2024 GEOVANNA CRENSHAW PA-C [address] [place] [address], E [facility], [place], [address], [facility] 10:57:54 Hypertrophy of nasal turbinates 93392445 Active 2024 Josh Thurston DO 100 [facility], [address] [facility], [place], [address], [facility] 10:57:03 Problem Notes None recorded. Procedures Surgical History Date Name Laterality Status Provider Name and Address Organization Details Recorded Time CT sinus - Xoran completed Josh Thurston DO [address] [facility],[address], [address], [facility] 06/13/2025 10:54:58 NasalEndoscopy_ DP completed IRASEMA ERICKSONC 100 [facility],[address], [address], [place] - [facility] [place] 05/11/2025 10:57:29 total replacement of right hip joint completed Maritza Verma [place] - [facility] [place] 05/11/2025 10:23:02 repair of joint of left knee completed Maritza Verma [place] - [facility] 05/11/2025 10:23:30 Imaging Results None recorded. Procedure Notes None recorded. Medical Equipment None Reported. Allergies No known drug allergies Medications Name Sig Start Date Stop Date Status Note LastModified by Organization Details LastModified Time atorvastat in 20 mg tablet TAKE 1 TABLET BY MOUTH DAILY active Not Available Not Available No t Available cetirizine 10 mg tablet TAKE 1 TABLET ORALLY DAILY active Not Available Not Available No t Available prednisone 20 mg tablet Take 3 tablets for 4 days, Take 2 Tablets for 4 days, Take 1 tablet for 4 days, take 1/2 tablets for 4 days 2024 active 60mg Sinus Taper Not Available Not Available Not Available aspirin 81 mg tablet,del ayed release TAKE 1 TABLET BY MOUTH EVERY [...] Available No t Available omeprazole 20 mg capsule,de layed release TAKE 1 CAPSULE BY MOUTH TWICE A DAY active Not Available Not Available No t Available testostero ne cypionate 200 mg/mL intramuscu lar oil INJECT 200 MG (1 ML) INTRAMUSC ULARLY EVERY 2 WEEKS active Not Available Not Available No t Available fluticason e propionate 50 mcg/actuat ion nasal spray,susp ension SPRAY 2 SPRAYS INTO EACH NOSTRIL DAILY active Not Available Not Available No t Available naproxen 500 mg tablet TAKE 1 TAB EVERY 12 HOURS NEEDED FOR PAIN FOR 7 DAYS active Not Available Not Available No t Available amoxicilli n 875 mg-potassi um clavulanat e 125 mg tablet Take 1 tablet every 12 hours by oral route for 21 days. 06/08 completed Not Available Not Available Not Available Laxative (bisacodyl ) 5 mg tablet,del ayed release TAKE 4 TABS AT NOON THE DAY BEFORE YOUR COLONOSCO PY 06/13 completed Not Available Not Available Not Available ezetimibe 10 mg tablet TAKE 1 TABLET (10 MG) ORALLY DAILY FOR 90 DAYS active Not Available Not Available No t Available cyclobenza kamini 5 mg tablet TAKE 1 TABLET ORALLY EVERY 8 HOURS NEEDED FOR MUSCLE SPASM FOR 7 DAYS active Not Available Not Available No t Available valsartan 320 mg-hydroch lorothiazi de 12.5 mg tablet TAKE 1 TABLET BY MOUTH EVERY DAY active Not Available Not Available No t Available Gavilax 17 gram/dose oral powder TAKE 238 GRAMS BY MOUTH DIRECTED BY GASTRO DEPARTMEN T 06/13 completed Not Available Not Available Not Available Vitals Date Recorded Body height Provider Name an d Address Organization Details Last Updated DateTime 06/13/2025 180.34 cm YOSHI AYALA [place] [facility] 06/13/2025 11:26:13 Social History None recorded. Functional Status Question Answer Note LastModified by Organizat ion Details LastModified Time What is your level of alcohol consumption? Occasional [email or web address] Information not available 05/11/2025 Mental Status None recorded. Family History Nothing Reported. Medical History Condition Response Allergies/Hayfever N Heart Problems N Anxiety N Tonsil Infections N Emphysema N Migraines Y Thyroid Problems N Glaucoma N Depression N COPD N Developmental Delay N Nasal or Sinus Problems N Anemia N Immune System Disorder N Anesthesia Complications N Heart Attack ([place]) N Other Skin Condition N Diabetes N Rhinitis N Bleeding Disorder N Food Allergy N Arthritis Y Hearing Loss N Hyperlipidemia N Cancer N Stroke N Dementia N Nasal polyps N Asthma N Sleep Disorder N GERD/Reflux N High Cholesterol N Liver Disease N Headaches Y Fibromyalgia N Hypertension Y Speech Delay N Kidney Disease N Past Encounters Encounter ID Performer Location Encounter Start Date Encounter Closed Date Diagnosis/Indication Diagnosis SNOMED-CT Code Diagnosis ICD10 Code Diagnosis IMO Codes Diagnosis Note [id number] Josh Thurston DO [facility] of [address] [address] 06/13/2025 10:18:23 06/13/2025 11:52:18 Chronic sinusitis 60118277 J32.8 03457 Posterior rhinorrhea 758 66579 R09.82 177947 Nasal congestion 1120049 0 R09.81 74044 Deviated nasal septum 12 6255183 J34.2 163048 Hypertroph y of nasal turbinates 24910053 J34.3 6717429 Health Concerns Section Related Observation LastModified by Organization Coleman ls LastModified Time None Recorded Concern Status LastModified by Organization Details LastModified Time None Recorded Payers Encounter Date Sequence Insurance Name Policy Number Policy [place] Covered Member ID [place] Member ID Guarantor Name 06/13/2025 1 [place]: [email or web address] Rafi Calvillo [id number] Rafi Calvillo 06/13/2025 2 [place] [facility] Rafi Calvillo [id number] Rafi Calvillo Notes Date Note Type Note Provider Name and Address Organization Details Recorded Time 06/13/2025 text/html Interval history: Reports 2 years of chronic postnasal drip and nasal congestion. Prior CT scan showed chronic sinusitis but never was given treatment for it outside of a few rounds of antibiotics. His symptoms have progressed in the interim with worsening nasal obstruction and worsening postnasal drip that is purulent. Patient has previously used nasal sprays. Previous visit: Seen by Geovanna 64-year-old male presents for evaluation of chronic [...] use, currently abstinent for over 10 years. Rafi Calvillo is a 64-year-old male who presents for chronic posterior nasal drip and sinus pressure. He reports experiencing constant nasal drainage and throat irritation for approximately two years, with symptoms worsening in the mornings and requiring an hour to clear his throat. He describes the drainage as clear but occasionally yellow, which persisted despite a 21-day antibiotic treatment. He also notes a history of dental procedures where teeth were cut off but not extracted, leaving roots in the gums, which he suspects may contribute to his symptoms. He has difficulty wearing dentures and has been informed by dentists that the procedure was not performed correctly. He also reports a history of trauma to the nose, likely contributing to a deviated septum. He experiences difficulty breathing through the right nostril and has a history of boxing and hockey. Josh Thurston, DO [address] [facility],[address], [place], [address], [place] - [facility] 06/13/2025 12:25:18
--- OUTSIDE RECORDS SUMMARY | 2025-06-15 17:02 | XMS_ITS | Clinical Summary ---
Author Organization [facility] Address [address] [place] [address] Care Team Providers Care Journeyman Glazier Name Role Phone Isidro Stanford MD Primary [...] age to complete this topic Care Teams Journeyman Glazier Relationship Specialty Start Date End Date Isidro Stanford MD PCP - General Internal Medicine 07/10/15
--- OUTSIDE RECORDS SUMMARY | 2025-06-15 17:02 | XMS_ITS | Data Portability ---
Author Organization [place] - [facility], Allergy Address [address] [address] Care Team Providers Care Embroidery Designer Name Role Phone YAOASHIA BEE Referring Provider [phone] Assessment Encounter Date Assessment Date Assessment LastModified by Organization Details LastModified Time 05/11/2025 05/11/2025 64-year-old male presents for evaluation of chronic sinusitis. CT sinus 01/21/2024 at [facility] demonstrated moderate mucosal thickening within the [...] CT sinus. I asked patient to contact [facility] radiology department to see if he can obtain a copy of his images which he will bring to his follow-up for comparison. He will follow-up to review the results. If imaging is negative, may consider allergy testing. Patient agrees with the plan and all questions were answered. [email or web address] Not available 05/11/2025 11:04:49 06/13/2025 06/13/2025 We reviewed the clinic findings today with the patient and had an extensive discussion on the natural history of their symptoms and the pathology causing them. The patient has progressive and bothersome symptoms noted previously in the HPI consistent with CRSsNP, which have not improved with optimal medical therapy which include extermination supervisor use of nasal saline, nasal steroid, and [...] Time Details Appointments Post Op 2025 03:30P EUGENE MCDUFFIE Not available Not available Not available Post Op 2025 02:15P Zachary Thurston DO Not available Not available Not available Lab None recorded. Referral None recorded. Procedures None recorded. Surgeries septoplas ty (SURG) 2024 025 [email or web address] Not available 06/13/2025 12:29:14 submucous resection inferior turbinate (SURG) 2024 025 [email or web address] Not available 06/13/2025 12:29:14 endoscopy , nasal/sin us, w/ maxillary antrostom y & tissue removal (SURG) 2024 [email or web address] Not available 06/13/2025 12:29:14 stereotac tic computer- assisted navigatio n (SURG) 2024 [email or web address] Not available 06/13/2025 12:29:14 endoscopy , nasal and sinus (SURG) 2024 [email or web address] Not available 06/13/2025 12:29:[address], sinuses, w/o contrast - in house CT, Xoran 2024 [email or web address] Not available 05/14/2025 10:43:04 Medication Orders prednison e 20 mg tablet 2024 [facility]armacy #[id number], [address] [place], [address], 06/13/2025 12:25:25 amoxicill in 875 mg-potass ium clavulana te 125 mg tablet 2024 [facility]armacy #[id number], [address] [place], [address], 06/08/2025 05:01:56 Patient TargetsNo targets recorded. Patient Instructions Encounter Date Encounter Id Patient Instructions Last Modified By Organization Details Last Modified Time 06/13/2025 [id number] - Contact the plastic surgery manager to arrange sinus surgery. - Follow up [...] 06/13/2025 11:50:48 Reason for Referral None Reported. Results Created Date Observation Date Name Description Value Unit Range Abnormal Flag Note LastModifiedBy Organization Detail LastModifiedTime 05/11/[address], sinus es, w/o contr ast No observ ation record ed. [email or web address] Not Available 11:19:46 Result Notes None recorded. Problems Name Problem SNOMED Code Status Onset Date Resolution Date Notes Provider Name and Address Organization Details Recorded Time Chronic sinusitis 47347581 Active 2024 GEOVANNA CRENSHAW PA-C [address] [facility] [address], [place], [address], [facility] - [facility] [place] 10:57:39 Posterior rhinorrhea 76798900 Active 2024 GEOVANNA CRENSHAW PA-C [address] [facility],[address], [place], [address], [facility] - [facility] [place] 10:57:44 Nasal congestion 36708018 Active 2024 GEOVANNA CRENSHAW PA-C [address] [facility],[address], [place], [address], [facility] - [facility] [place] 10:57:47 Deviated nasal septum 016088138 Active 2024 GEOVANNA CRENSHAW PA-C [address] [facility], [address] [facility], [place], [address], [facility] - [facility] [place] 10:57:54 Hypertrophy of nasal turbinates 22738951 Active 2024 Josh Thurston DO [address] [facility],[address] [facility], [place], [address], [facility] - [facility] 10:57:03 Problem Notes None recorded. Procedures Surgical History Date Name Laterality Status Provider Name and Address Organization Details Recorded Time CT sinus - Xoran completed Josh Thurston DO [address] [facility],[address], [address], [facility] - [facility] [place] 06/13/2025 10:54:58 NasalEndoscopy_ DP completed GEOVANNA CRENSHAW PA-C [address] [facility] [place] [address], [place], [address], [facility] - [facility] [place] 05/11/2025 10:57:29 total replacement of right hip joint completed Maritza Verma [place] - [facility] 05/11/2025 10:23:02 repair of joint of left knee completed Maritza Verma [place] - [facility] 05/11/2025 10:23:30 Imaging Results None recorded. [...] Not Available Vitals Date Recorded Body height Body mass index (BMI) Body weight Provider Name and Address Organization Details Last Updated DateTime 05/11/2025 180.34 cm 32.5 kg/m2 525602.02 g Maritza Verma [place] - [facility] 05/11/2025 10:01:55 Date Recorded Body height Provider Name an d Address Organization Details Last Updated DateTime 06/13/2025 180.34 cm YOSHI AYALA [place] [facility] 06/13/2025 11:26:13 Social History None recorded. Functional [...] Disorder N Anesthesia Complications N Heart Attack ([place]) N Other Skin Condition N Diabetes N Rhinitis N Bleeding Disorder N Food Allergy N Arthritis Y Hearing Loss N Hyperlipidemia N Cancer N Stroke N Dementia N Nasal polyps N Asthma N High Cholesterol N Sleep Disorder N GERD/Reflux N Liver Disease N Headaches Y Fibromyalgia N Hypertension Y Speech Delay N Kidney Disease N Past Encounters Encounter ID Performer Location Encounter Start Date Encounter Closed Date Diagnosis/Indication Diagnosis SNOMED-CT Code Diagnosis ICD10 Code Diagnosis IMO Codes Diagnosis Note [id number] GEOVANNA CRENSHAW PA-C [facility] [address] [address] 05/11/2025 09:49:51 05/11/2025 10:51:35 Chronic sinusitis 16143669 J32.8 45157 Posterior rhinorrhea 758 80650 R09.82 120544 Nasal congestion 9304685 0 R09.81 46924 Deviated nasal septum 12 2930067 J34.2 660194 [id number] Josh Thurston, DO [facility] of [address] [address] 06/13/2025 10:18:23 06/13/2025 11:52:18 Chronic sinusitis 41063478 J32.8 63775 Posterior rhinorrhea 758 69712 R09.82 669073 Nasal congestion 1095730 0 R09.81 98750 Deviated nasal septum 12 0591554 J34.2 046733 Hypertroph y of nasal turbinates 37378584 J34.3 4335335 Health Concerns Section Related Observation LastModified by Organization Detai ls LastModified Time None Recorded Concern Status LastModified by Organization Details LastModified Time None Recorded Advance Directives Directive None Recorded Payers Insurance Date Sequence Insurance Name Policy Number Policy [place] Covered Member ID [place] Member ID Guarantor Name 05/11/2025 1 MEDICARE [place]: [facility] Rafi [place] [id number] Rafi L Karli 06/10/2025 1 MEDICARE B-[place]: [facility] Rafi L Karli [id number] Rafi L [place] 05/11/2025 2 [place] [facility] Rafi L Karli [id number] Rafi L [place] 06/11/2025 2 [place] [facility] Rafi L [place] [id number] Rafi L Karli Notes Date Note Type [...] for over 10 years. GEOVANNA CRENSHAW PA-C [address] [place] [address], [address], [facility] - [facility] 05/11/2025 11:08:49 06/13/2025 text/html Interval history: Reports 2 years [...] history of boxing and hockey. Josh Thurston, 100 [facility],[place] [address], [place], [address], [facility] - [facility] 06/13/2025 12:25:18
--- OUTSIDE RECORDS SUMMARY | 2025-06-15 17:02 | XMS_ITS | Clinical Summary ---
Author Organization [facility] it Address [address] [place] [address] Care Team Providers Care Supplier Development Manager Name Role Phone sIidro Stanford MD Primary Care Provider [phone] Surgical History Surgery Date Site/Laterality Comments HIP [...] age to complete this topic Care Teams Supplier Development Manager Relationship Specialty Start Date End Date Isidro Stanford MD PCP - General Internal Medicine 07/10/15
== END 2025-06-15 16:30 | disposition home or self-care (01) ==
LOC: HO.HUSH 15:45
PROVIDERS: Visit Provider Urology
DX: F11.90 Opioid use, unspecified, uncomplicated (principal); Z79.890 Hormone replacement therapy; R79.89 Other specified abnormal findings of blood chemistry; R97.20 Elevated prostate specific antigen [PSA]
CPT/HCPCS: 99213; G2211

== ENCOUNTER → 2025-06-15 15:45 | Outpatient (BNVA) | payer MEDICARE, MEDICAID, SELFPAY | PROVIDERS: Visit Provider Urology | DX: F11.90 Opioid use, unspecified, uncomplicated (principal); R79.89 Other specified abnormal findings of blood chemistry; R97.20 Elevated prostate specific antigen [PSA]; Z79.890 Hormone replacement therapy | CPT/HCPCS: 99212 ==

== ENCOUNTER 2025-07-18 09:31 | Outpatient (REF) | payer MEDICARE, MEDICAID, SELFPAY ==
--- OUTSIDE RECORDS SUMMARY | 2025-07-18 10:40 | XMS_ITS | Clinical Summary ---
Author Organization [facility] Address [address] [place] [address] Care Team Providers Care Wrapper Hand Name Role Phone Isidro Stanford MD Primary Care Provider [phone] Surgical History Surgery Date Site/Laterality Comments HIP [...] age to complete this topic Care Teams Wrapper Hand Relationship Specialty Start Date End Date Isidro Stanford MD PCP - General Internal Medicine 07/10/15
--- OUTSIDE RECORDS SUMMARY | 2025-07-18 10:40 | XMS_ITS | Data Portability ---
Author Organization [place] - [facility], Allergy Address [address] [address] Care Team Providers Care Real Estate Marketing Coordinator Name Role Phone YAOASHIA BEE Referring Provider [phone] Assessment Encounter Date Assessment Date Assessment LastModified by Organization Details LastModified Time 05/11/2025 05/11/2025 64-year-old male presents for evaluation of chronic sinusitis. CT sinus 01/21/2024 at [facility] demonstrated moderate mucosal thickening within the [...] CT sinus. I asked patient to contact [facility] radiology department to see if he can obtain a copy of his images which he will bring to his follow-up for comparison. He will follow-up to review the results. If imaging is negative, may consider allergy testing. Patient agrees with the plan and all questions were answered. [email or web address] Not available 05/11/2025 11:04:49 06/13/2025 06/13/2025 We reviewed the clinic findings today with the patient and had an extensive discussion on the natural history of their symptoms and the pathology causing them. The patient has progressive and bothersome symptoms noted previously in the HPI consistent with CRSsNP, which have not improved with optimal medical therapy which include retirement use of nasal saline, nasal steroid, and [...] contrast - in house CT, Xoran 2024 [email or web address] Not available 05/14/2025 10:43:04 Medication Orders prednison e 20 mg tablet 2024 [facility]/Pharmacy #[id number], [address] [place], [address], 06/13/2025 12:25:25 amoxicill in 875 mg-potass ium clavulana te 125 mg tablet 2024 [facility]/Pharmacy #[id number], [address] [place], [address], 06/08/2025 05:01:56 Patient TargetsNo targets recorded. Patient Instructions Encounter Date Encounter Id Patient Instructions Last Modified By Organization Details Last Modified Time 06/13/2025 [id number] - Contact the chief crew scheduler to arrange sinus surgery. - Follow up [...] contr ast No observ ation record ed. [email or web address] Not Available 11:19:46 07/14/20 25 06/13/2025 CT, sinus es, w/o contr ast No observ ation record ed. [email or web address] [facility] [address], [place], [address], 07/16/2025 16:39:13 Result Notes None recorded. Problems Name Problem SNOMED Code Status Onset Date Resolution Date Notes Provider Name and Address Organization Details Recorded Time Chronic sinusitis 70212066 Active 2024 GEOVANNA CRENSHAW PA-C [address] [place], [place], [address], [facility] - [facility] [place] 10:57:39 Posterior rhinorrhea 75000084 Active 2024 GEOVANNA CRENSHAW PA-C [address], [place], [address], [facility] - [facility] [place] 10:57:44 Nasal congestion 34574501 Active 2024 IRASEMA ERICKSONC [address] [facility] [place], [place], [address], [facility] - [facility] 10:57:47 Deviated nasal septum 800698660 Active 2024 IRASEMA ERICKSONC [address] [facility] [place], [place], [address], [facility] - [facility] 5 10:57:54 Hypertrophy of nasal turbinates 10782228 Active 2024 Josh Thurston DO [address] [facility] [place], [place], [address], [facility] - [facility] 10:57:03 Problem Notes None recorded. Procedures Surgical History Date Name Laterality Status Provider Name and Address Organization Details Recorded Time CT sinus - Xoran completed Josh Thurston DO [address] [facility] [place],[facility] [address], [place], [address], [facility] - [facility] 06/13/2025 10:54:58 NasalEndoscopy_ DP completed GEOVANNA CRENSHAW PA-C [address] [place] [address],[place] [address], [place], [address], [place] - [facility] 05/11/2025 10:57:29 total replacement of right hip joint completed Maritza Verma [place] - [facility] 05/11/2025 10:23:02 repair of joint of left knee completed Maritza Verma [place] - [facility] [place] 05/11/2025 10:23:30 Imaging Results None recorded. Procedure [...] Updated DateTime 05/11/2025 180.34 cm 32.5 kg/m2 635784.02 g Maritza Verma [place] - [facility] 05/11/2025 10:01:55 Date Recorded Body height Provider Name an d Address Organization Details Last Updated DateTime 06/13/2025 180.34 cm YOSHI AYALA [place] - [facility] 06/13/2025 11:26:13 Social History None recorded. Functional Status Question Answer Note LastModified by Organizat ion Details LastModified Time What is your level of alcohol consumption? [email or web address] [email or web address] Information not available 05/11/2025 Mental Status None recorded. Family History Nothing Reported. Medical History Condition Response Allergies/Hayfever N Heart Problems N Anxiety N Tonsil Infections N Emphysema N Migraines Y Thyroid Problems N COPD N Depression N Developmental Delay N Glaucoma N Nasal or Sinus Problems N Anemia N Immune System Disorder N Anesthesia Complications N Heart Attack ([place]) N Other Skin Condition N Diabetes N [...] ICD10 Code Diagnosis IMO Codes Diagnosis Note [id number] GEOVANNA CRENSHAW PA-C [facility] [address] [place] [address] 05/11/2025 09:49:51 05/11/2025 10:51:35 Chronic sinusitis 76396723 J32.8 53690 Posterior rhinorrhea 758 65886 R09.82 079480 Nasal congestion 8576901 0 R09.81 42134 Deviated nasal septum 12 9573506 J34.2 232266 [id number] Josh Thurston, [facility] [address] [place] [address] 06/13/2025 10:18:23 06/13/2025 11:52:18 Chronic sinusitis 33788820 J32.8 44536 Posterior rhinorrhea 758 68976 R09.82 441780 Nasal congestion 7523335 0 R09.81 32662 Deviated nasal septum 12 2803238 J34.2 587912 Hypertroph y of nasal turbinates 51928836 J34.3 9214967 Health Concerns Section Related Observation LastModified by Organization Detai ls LastModified Time None Recorded Concern Status LastModified by Organization Details LastModified Time None Recorded Advance Directives Directive None Recorded Payers Insurance Date Sequence Insurance Name Policy Number Policy [place] Covered Member ID [place] Member ID Guarantor Name 05/11/2025 1 [place] [employer] Rafi Cut Off [id number] Rafi L Cut Off 06/10/2025 1 [place]: [employer] Rafi L Cut Off [id number] Rafi L Karli 05/11/2025 2 [place] [facility] Rafi L Karli [id number] Rafi L Karli 06/11/2025 2 [place] [facility] Rafi L Cut Off [id number] Rafi L Karli Notes Date Note Type [...] for over 10 years. GEOVANNA CRENSHAW PA-C [address] [place] [address], [address], [facility] 05/11/2025 11:08:49 06/13/2025 text/html Interval history: [...] boxing and hockey. Josh Thurston, DO 100 [facility],[address] [address], [place], [address], [facility] - [facility] 06/13/2025 12:25:18
--- OUTSIDE RECORDS SUMMARY | 2025-07-18 10:40 | XMS_ITS | Clinical Summary ---
Author Organization [facility] Address [address] [place] [address] Care Team Providers Care Glass Frame Fitter Name Role Phone Isidro Stanford MD Primary [...] age to complete this topic Care Teams Glass Frame Fitter Relationship Specialty Start Date End Date Isidro Stanford MD PCP - General Internal Medicine 07/10/15
--- OUTSIDE RECORDS SUMMARY | 2025-07-18 10:41 | XMS_ITS | Continuity of Care Document ---
Author Organization [place] - [facility], [facility] Address [address] [place] [address] Care Team Providers Care Dumper Name Role Phone ASHIA WALSH Referring Provider [phone] Assessment Encounter Date Assessment Date Assessment LastModified by Organization Details LastModified Time 05/11/2025 05/11/2025 64-year-old male presents for evaluation of chronic sinusitis. CT sinus 01/21/2024 at [facility] demonstrated moderate mucosal thickening within the left [...] CT sinus. I asked patient to contact [facility] radiology department to see if he can obtain a copy of his images which he will bring to his follow-up for comparison. He will follow-up to review the results. If imaging is negative, may consider allergy testing. Patient agrees with the plan and all questions were answered. [email or web address] Not available 05/11/2025 11:04:49 Plan of Treatment Reminders Order Date Submit Date Provider Last Modified By Organization Details Last Modified Time Details Appointments Post Op 2025 03:30P M EUGENE BRUNNER Not available Not available Not available Post Op 2025 02:15P M Josh Thurston, DO Not available Not available Not available Lab None recorded. Referral None recorded. Procedures None recorded. Surgeries None recorded. Imaging CT, sinuses, w/o contrast - in house CT, Xoran 2024 025 [email or web address] Not available 05/14/2025 10:43:04 Medication Orders amoxicill in 875 mg-potass ium clavulana te 125 mg tablet 2024 025 [facility]/Pharmacy #[id number], [address] [facility] [place], [address], 06/08/2025 05:01:56 Patient TargetsNo targets recorded. Patient InstructionsNo instructions recorded. Reason for Referral None Reported. Results Created Date Observation Date Name Description Value Unit Range Abnormal Flag Note LastModifiedBy Organization Detail LastModifiedTime 05/11/20 CT, sinus es, w/o contr ast No observ ation record ed. [email or web address] Not Available 11:19:46 07/14/20 25 06/13/2025 CT, sinus es, w/o contr ast No observ ation record ed. [email or web address] [facility] [address], [place], [address], 07/16/2025 16:39:13 Result Notes None recorded. Problems Name Problem SNOMED Code Status Onset Date Resolution Date Notes Provider Name and Address Organization Details Recorded Time Chronic sinusitis 59780149 Active 2024 GEOVANNA CRENSHAW PA-C [address] [address], [place], [address], [facility] - [facility] 10:57:39 Posterior rhinorrhea 53409223 Active 2024 GEOVANNA CRENSHAW PA-C [address] [address], [place], [address], [place] - [facility] [place] 10:57:44 Nasal congestion 48101393 Active 2024 IRASEMA ERCIKSON [address], [address], [place] - [facility] [place] 10:57:47 Deviated nasal septum 698492770 Active [address], [address], [place] - [facility] [place] 10:57:54 Hypertrophy of nasal turbinates 48572752 Active 2024 Josh Thurston, [address], [address], [place] - [facility] [place] 10:57:03 Problem Notes None recorded. Procedures Surgical History Date Name Laterality Status Provider Name and Address Organization Details Recorded Time CT sinus - Xoran completed Josh Thurston [address], [address], [facility] - [facility] [place] 06/13/2025 10:54:58 NasalEndoscopy_ DP completed GEOVANNA CRENSHAW PA-C [address] [place] [address], [address], [place] - [facility] [place] 05/11/2025 10:57:29 total replacement of right hip joint completed Maritza Verma [place] - [facility] [place] 05/11/2025 10:23:02 repair of joint of left knee completed Maritza Verma [place] - [facility] [place] 05/11/2025 10:23:30 Imaging Results None recorded. Procedure [...] Updated DateTime 05/11/2025 180.34 cm 32.5 kg/m2 183693.02 g Maritza Verma [place] - [facility] 05/11/2025 10:01:55 Social History None recorded. Functional Status Question Answer Note LastModified by Organizat ion Details LastModified Time What is your level of alcohol consumption? [email or web address] [email or web address] Information not available 05/11/2025 Mental Status None recorded. Family History Nothing Reported. Medical History Condition Response Allergies/Hayfever N Heart Problems N Anxiety N Tonsil Infections N Emphysema N Migraines Y Thyroid Problems N Depression N COPD N Developmental Delay N Glaucoma N Nasal or Sinus Problems N Anemia N Immune System Disorder N Anesthesia Complications N Heart Attack ([place]) N Other Skin Condition N Diabetes N [...] ICD10 Code Diagnosis IMO Codes Diagnosis Note [id number] GEOVANNA CRENSHAW PA-C [facility] [address] [address] 05/11/2025 09:49:51 05/11/2025 10:51:35 Chronic sinusitis 84310337 J32.8 82874 Posterior rhinorrhea 758 15077 R09.82 018492 Nasal congestion 7492724 0 R09.81 89585 Deviated nasal septum 12 1349419 J34.2 891881 Health Concerns Section Related Observation LastModified by Organization Detai ls LastModified Time None Recorded Concern Status LastModified by Organization Details LastModified Time None Recorded Payers Encounter Date Sequence Insurance Name Policy Number Policy [place] Covered Member ID [place] Member ID Guarantor Name 05/11/2025 1 [place]: [employer] Rafi Calvillo [id number] Rafi Calvillo 05/11/2025 2 [place]: [facility] Rafi Calvillo [id number] Rafi Calvillo Notes Date Note Type Note [...] for over 10 years. GEOVANNA CRENSHAW PA-C [address] [place] [address], [address], [facility] - [facility] 05/11/2025 11:08:49
--- OUTSIDE RECORDS SUMMARY | 2025-07-18 10:41 | XMS_ITS | Continuity of Care Document ---
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 Patient Instructions Encounter Date Encounter Id Patient Instructions Last Modified By Organization Details Last Modified Time 06/13/2025 [id number] - Contact the director of surgery to arrange sinus surgery. - Follow up [...] Abnormal Flag Note LastModifiedBy Organization Detail LastModifiedTime 07/14/2006/13/2025 CT, sinus es, w/o contr ast No observ ation record ed. [email or web address] [facility] [address], [place], [address], 07/16/2025 16:39:13 Result Notes None recorded. Problems Name Problem SNOMED Code Status Onset Date Resolution Date Notes Provider Name and Address Organization Details Recorded Time Chronic sinusitis 85169608 Active 2024 GEOVANNA CRENSHAW PA-C 100 [facility],[address] [address], [place], [address], [facility] - [facility] 10:57:39 Posterior rhinorrhea 03924752 Active 2024 GEOVANNA CRENSHAW PA-C [address] [facility],[address] [address], [place], [address], [facility] - [facility] 10:57:44 Nasal congestion 21817517 Active 2024 GEOVANNA CRENSHAW PA-C 100 [facility], [address] [facility], [place], [address], [facility] - [facility] [place] 10:57:47 Deviated nasal septum 976113507 Active 2024 GEOVANNA CRENSHAW PA-C 100 [facility], [address] [facility], [place], [address], [facility] - [facility] [place] 10:57:54 Hypertrophy of nasal turbinates 31360040 Active 2024 Josh Thurston DO 100 [facility], [address], [place], [address], [facility] - [facility] 10:57:03 Problem Notes None recorded. Procedures Surgical History Date Name Laterality Status Provider Name and Address Organization Details Recorded Time CT sinus - Xoran completed Josh Thurston, [address] [facility] 100, [place], [address], [facility] - [facility] 06/13/2025 10:54:58 NasalEndoscopy_ DP completed GEOVANNA CRENSHAW PA-C 100 [facility] 100, [place], [address], [place] - [facility] 05/11/2025 10:57:29 total replacement of right hip joint completed Maritza Verma [place] - [facility] 05/11/2025 10:23:02 repair of joint of left knee completed Maritza Verma [place] - [facility] 05/11/2025 10:23:30 Imaging Results None recorded. [...] AYALA [place] - [facility] 06/13/2025 11:26:13 Social History None recorded. Functional Status Question Answer Note LastModified by Organizat ion Details LastModified Time What is your level of alcohol consumption? [email or web address] [email or web address] Information not available 05/11/2025 Mental Status None recorded. Family History Nothing Reported. Medical History Condition Response Tonsil Infections N Emphysema N Glaucoma N Depression N COPD N Nasal or Sinus Problems N Anesthesia Complications N Arthritis Y Hearing Loss N Cancer N Stroke N High Cholesterol N Liver Disease N Headaches Y Fibromyalgia N Speech Delay N Kidney Disease N Allergies/Hayfever N Heart Problems N Anxiety N Migraines Y Thyroid Problems N Developmental Delay N Anemia N Immune System Disorder N Heart Attack ([place]) N Other Skin Condition N Diabetes N Rhinitis N Bleeding Disorder N Food Allergy N Hyperlipidemia N Dementia N Nasal polyps N Asthma N Sleep Disorder N GERD/Reflux N Hypertension Y Past Encounters Encounter ID Performer Location Encounter Start Date Encounter Closed Date Diagnosis/Indication Diagnosis SNOMED-CT Code Diagnosis ICD10 Code Diagnosis IMO Codes Diagnosis Note [id number] Josh Thurston, [facility] [address] [address] 06/13/2025 10:18:23 06/13/2025 11:52:18 Chronic sinusitis 37451091 J32.8 03364 Posterior rhinorrhea 758 79766 R09.82 933106 Nasal congestion 7189442 0 R09.81 68065 Deviated nasal septum 12 8418395 J34.2 603089 Hypertroph y of nasal turbinates 15417038 J34.3 3410414 Health Concerns Section Related Observation LastModified by Organization Detai ls LastModified Time None Recorded Concern Status LastModified by Organization Details LastModified Time None Recorded Payers Encounter Date Sequence Insurance Name Policy Number Policy [place] Covered Member ID [place] Member ID Guarantor Name 06/13/2025 1 [place] [employer] Rafi Calvillo [id number] Rafi Calvillo 06/13/2025 2 [place]: [facility] Rafi Calvillo [id number] Rafi Calvillo Notes Date Note Type Note [...] of boxing and hockey. Josh Thurston, [address] [facility],[address] [address], [place], [address], [facility] - [facility] 06/13/2025 12:25:18
--- NOTE | 2025-07-18 12:25 | MHC.AU.HA2 ---
Hearing Instrument Fitting- Adult- Binaural Date of Visit: 07/18/25 Hearing Instruments Dispensed: Right Ear: Harry, Model, Color, Serial Number: Mike Stacy I70-R SN: [id number] Color: Elena Beige Seed Analysis Laboratory Assistant Repair Warranty: 07/06/2028 Seed Analysis Laboratory Assistant Loss and Damage Warranty: 07/06/2028 [facility] Service Plan: 07/18/2026 Battery Size: Rechargeable Capacity Management Specialist/Slim Tube: 2M Earmold/Dome/CShell/SlimTip: Medium vented dome (no retention tail) Type of Wax Guard: Cerustop Left Ear: Make, Model, Color, Serial Number: Mike Hyltono I70-R SN: [id number] Color: Elena Beige Seed Analysis Laboratory Assistant Repair Warranty: 07/06/2028 Seed Analysis Laboratory Assistant Loss and Damage Warranty: 07/06/2028 [facility] Service Plan: 07/18/2026 Battery Size: Rechargeable Capacity Management Specialist/Slim Tube: 2M Earmold/Dome/CShell/SlimTip: Medium vented dome (no retention tail) Type of Wax Guard: CeruStop Accessories/Assistive Technology: Phonak Diagnostic Cardiac Sonographer BROOK SN: [id number] Summary of Fitting: Ran feedback analyzer and real ear measures. Comfortable at real ear settings. Noted echo of own voice but willing to acclimate. Discussed care, use, and rechargeability including manually turning on/off, VC use, and changing domes and wax guards. Practiced insertion and removal. Explained importance of daily, consistent use and acclimatization period. Discussed bluetooth but Rafi reported he can pair himself at home if desired. 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 Recommendations: A hearing instrument follow-up was scheduled. Diagnosis Code(s): Primary Diagnosis: H90.3 Bilateral Sensorineural Hearing Loss Signature: Provider: Wallace France, [facility]
== END 2025-07-18 09:32 | disposition home or self-care (01) ==
LOC: HO.HAP 09:31
PROVIDERS: Visit Provider Internal Medicine
DX: H90.3 Sensorineural hearing loss, bilateral (principal)
CPT/HCPCS: V5011; V5020; V5160; V5261

== ENCOUNTER 2025-08-14 07:29 | Day surgery (SDC) | payer MEDICARE, MEDICAID, SELFPAY ==
--- OUTSIDE RECORDS SUMMARY | 2025-07-12 10:37 | XMS_ITS | Clinical Summary ---
Author Organization [facility] Address [address] [place] [address] Care Team Providers Care Unclaimed Property Manager Name Role Phone Isidro Stanford MD [...] age to complete this topic Care Teams Unclaimed Property Manager Relationship Specialty Start Date End Date Isidro Stanford MD PCP - General Internal Medicine 07/10/15
--- NOTE | 2025-08-09 13:39 | P.CONAN_ITS ---
Documented by User: Miriam Ni NP 08/09/25 13:42 HPI - Anesthesia Eval Consult details Narrative: 64yo M for Upper Endoscopy and Colonoscopy Cardiac optimized. Follows [facility] – [place] Cardiology for nonobstructive CAD with previous atypical CP. Testing reassuring (results below). Stable and asymptomatic at 05/2025 office visit with routine f/u in 6 months Methadone daily (low dose) PMFSH Active Problems Active Problems: All Active Problems Elevated PSA (Acute) Preop cardiovascular exam (Acute) Encounter for annual wellness visit (AWV) in Medicare patient (Acute) Hard of hearing (Acute) Low testosterone (Acute) Long-term current use of testosterone replacement therapy (Acute) Methadone use (Acute) Dyslipidemia (Acute) Skin lesions (Acute) Screening for prostate cancer (Acute) Coronary artery calcification seen on CAT scan (Acute) Hypertension (Acute) Palpitations (Acute) Chest discomfort (Acute) Axonal sensorimotor neuropathy (Acute) Physical exam (Acute) Neuropathy of left foot (Acute) Cough (Acute) Hypogonadism in male (Acute) Abnormal sputum (Acute) Ear fullness (Acute) Post-nasal drip (Acute) Past Medical History Medical History CAD (coronary artery disease) Methadone use Neuropathy of foot Palpitations Dyslipidemia Hypertension GERD (gastroesophageal reflux disease) Axonal sensorimotor neuropathy Family History Family History Mother CHF (congestive heart failure) Surgical History Surgical History S/P left knee arthroscopy History of right hip replacement Social History Social History Housing: House Are you a primary hospice care consultant to a significant other at home: No Do you presently have visiting nurse or other home services: No Alcohol intake: current Alcohol intake frequency: holidays/special occasions only Comment: once a month Patient Tobacco Use Status: Never used Tobacco e-Cigarette/Vaping Use: Never Used Second Hand Smoke Exposure: No Have you been hit, kicked, punched, or otherwise hurt by someone within the past year? If so, by whom?: No Are you DNR?: No Advance Directives: No Advance Directives Information Provided: Yes service: No Current occupational status: disabled Cognitive needs: No Hearing needs: No Vision needs: No Meds Allergies Allergy/AdvReac Type Severity Reaction Status Date / Time atorvastatin AdvReac Mild Joint Pain Verified 08/14/25 08:12 Home Medications ?Medication ?Instructions ?Recorded ?Confirmed ?Last Taken ?Type apple cider vinegar 500 mg tablet 500 mg PO DAILY 10/2108/10/25 Unknown History ascorbate calcium (vitamin C) 500 500 mg PO DAILY 10/2108/10/25 Unknown History mg tablet fluticasone propionate 50 2 spray intranasal DAILY PRN Nasal 04/09/25 08/10/25 Unknown History mcg/actuation nasal Congestion spray,suspension (Allergy Relief (fluticasone)) gabapentin 300 mg capsule 300 mg PO DAILY PRN nerve pa in 04/09/25 08/10/25 Unknown History methadone 10 mg/mL oral concentrate 4 mg PO QDAY 06/0808/10/25 08/14/25 History Exam Narrative Narrative: CTA of the chest done 06/30/2024 shows moderate coronary calcifications. An echocardiogram done 08/25/2024 showed EF 55-60%, impaired relaxation, mild biatrial enlargement, ascending aorta 4.3 cm. A nuclear stress test on 11/23/2024 with exercise just over 5 minutes with moderate shortness of breath, no EKG changes and normal myocardial perfusion imaging. Holter monitor done 08/25/2024 for 3 days shows sinus rhythm with average heart rate 74, SVE 2.5% of time, rare ventricular ectopy, longest 3 beats. Assessment and Plan Assessment Anesthesia Assessment: Chart Reviewed Documented by User: Jorge Leblanc MD 08/14/25 08:40 [facility] Past Medical History Medical History CAD (coronary artery disease) Methadone use Neuropathy of foot Palpitations Dyslipidemia Hypertension GERD (gastroesophageal reflux disease) Axonal sensorimotor neuropathy Family History Family History Mother CHF (congestive heart failure) Family history of problems with anesthesia: No Surgical History Surgical History S/P left knee arthroscopy History of right hip replacement History of Problems with Anesthesia: No Social History Social History Housing: House Are you a primary hospice care consultant to a significant other at home: No Do you presently have visiting nurse or other home services: No Alcohol intake: current Alcohol intake frequency: holidays/special occasions only Comment: once a month Patient Tobacco Use Status: Never used Tobacco e-Cigarette/Vaping Use: Never Used Second Hand Smoke Exposure: No Have you been hit, kicked, punched, or otherwise hurt by someone within the past year? If so, by whom?: No Are you DNR?: No Advance Directives: No Advance Directives Information Provided: Yes service: No Current occupational status: disabled Cognitive needs: No Hearing needs: No Vision needs: No Meds Allergies Allergy/AdvReac Type Severity Reaction Status Date / Time atorvastatin AdvReac Mild Joint Pain Verified 08/14/25 08:12 Home Medications ?Medication ?Instructions ?Recorded ?Confirmed ?Last Taken ?Type apple cider vinegar 500 mg tablet 500 mg PO DAILY 10/2108/10/25 Unknown History ascorbate calcium (vitamin C) 500 500 mg PO DAILY 10/2108/10/25 Unknown History mg tablet fluticasone propionate 50 2 spray intranasal DAILY PRN Nasal 04/09/25 08/10/25 Unknown History mcg/actuation nasal Congestion spray,suspension (Allergy Relief (fluticasone)) gabapentin 300 mg capsule 300 mg PO DAILY PRN nerve pa in 04/09/25 08/10/25 Unknown History methadone 10 mg/mL oral concentrate 4 mg PO QDAY 06/0808/10/25 08/14/25 History Exam Airway Mallampati Class: II TM Dist: >3cm Neck ROM: Full Loose/Missing/Broken Teeth: Yes Assessment and Plan Assessment Anesthesia Assessment: Anesthesia Plan Discussed Final Anesthetic Review Family History of Problems with Anesthesia: No History of Problems with Anesthesia: No NPO: Yes ASA Class: III Final Preanesthetic Review: No Changes in Pt Med Stat, Meds/Allgs Chart Reviewed, Consent Obtained/Reviewed and Anes Risks/Benef Reviewed Patient Risk: Intermediate Procedure Risk: Low Anesthetic Plan Anesthetic Plan: MAC: Disposition: Standard PACU
[2025-08-10 13:34] VITALS: BMI 33.3
[2025-08-14 07:51] VITALS: BMI 32.1
[2025-08-14] MEDS: Lactated Ringers 1,000 ML 100 ML IVCONT (07:55)
--- NOTE | 2025-08-14 07:57 | MHC.SHP ---
Pre-Procedural Eval Section A - 24 Hr Update-Section A only Date of Service: 08/14/25 Section B - Complete if H&P > 30 days Chief Complaint: screening,gerd,dysphagia Details of Present Illness: Hypertension Chest congestion GERD (gastroesophageal reflux disease) Axonal sensorimotor neuropathy Surgical History S/P left knee arthroscopy History of right hip replacement Present Medications: see Short Stay Collaborative assessment Allergies: Allergies Allergy/AdvReac Type Severity Reaction Status Date / Time atorvastatin AdvReac Mild Joint Pain Verified 06/15/25 15:49 Review of Systems Review of Systems Comment: Ten point ROS negative Exam Exam Comment: Gen appear: No acute distress HEENT: no icterus Chest: No overt resp distress Abd: soft, nontender, nondistended Psych: Stable affect, answering questions appropriately Neuro: A/Ox3 noted to move all extremities spontaneously Ext: no peripheral edema Plan Diagnosis/Plan: Unchanged I have reviewed the history and physical and performed a pertinent physical examination on my patient. No changes have occurred unless specified. Time Spent With Patient Time: Total time managing care of this patient today ____ minutes.
[2025-08-14 08:10] VITALS: BP 119/85; PULSE 80; RESP 18; TEMP 36.6; O2SAT 95
--- NOTE | 2025-08-14 09:16 | P.OPN-COLO_ITS ---
Colonoscopy Operative Note Operative Note Date of Service: 08/14/25 Narrative: Procedure: Upper endoscopy and colonoscopy Indication: Dysphagia, gastritis, screening Endoscopist: Jeannette Reddy MD Anesthesia Provider: Dr Jorge Leblanc Anesthesia type: MAC Instrument: [id number] and [id number] EGD Procedure:?? The procedure, indications, preparation and potential complications were reviewed with the patient, who indicated understanding and gave written informed consent to proceed. The endoscope was introduced through the mouth, and advanced to the 2nd part of the duodenum. The mucosa was carefully examined on slow withdrawal of the endoscope. The patient tolerated the procedure well. There were no immediate complications.? EGD Findings:? * Esophagus:? Normal esophageal mucosa was noted. The Z-line was at 44 cm with 2 mucosal tongues extending out to 41 and 42 cm respectively. Cold forceps biopsies were taken q1 cm from 44 to 41 cm to rule out Chavez' esophagus. Tissue Cypher will also be sent if Chavez's esophagus confirmed on pathology. Middle esophagus biopsies were also taken to rule out eosinophilic esophagitis. * Stomach:? Erythema and erosions with scant heme in the body and antrum. Retroflexion was performed in the cardia that showed Hill grade 2. Random cold forceps biopsies were taken from the stomach body and antrum. * Duodenum:? Diffuse erosions, and aphthous ulceration of the duodenal bulb noted. Remaining mucosa normal to the extent examined. Cold forceps biopsies were taken of the duodenal bulb for histology. Additional intervention: Soft tip Savary wire was introduced through the biopsy channel of the gastroscope and advanced to the antrum. ?The gastroscope was then backed out. ?Savary Jose bougie was advanced over the guidewire and the esophagus was dilated from 17 to 18 mm with resistance felt. ?On relook, no heme or tear was noted. ? Colonoscopy Procedure:? The patient was then turned for the colonoscopy. A digital rectal exam was performed which was abnormal for external hemorrhoids.? A distal attachment cap was affixed to the tip of the scope and the colonoscope was then inserted through the anus and advanced through the colon and advanced to the cecum at 75 cm and terminal ileum.? Appendiceal orifice and ileocecal valve were identified. Mucosa was carefully examined under high definition white light as the instrument was slowly withdrawn in a retrograde panoramic fashion. Retroflexion was performed in rectum. The procedure was not difficult. The quality of the prep was BBPS: 2+3+3 = adequate Withdrawal time 11 minutes Limitations: No limitations Findings: Mucosa: Normal colon and terminal ileum mucosa. Protruding lesions: * 1 sessile polyp of size 5 mm noted in transverse colon. Cold snare polypec reji was performed. The polyp was completely removed and retrieved. * Small internal hemorrhoids without stigmata of recent bleeding. Excavated lesions: * A few diverticula noted in the sigmoid colon. Impression: 1. R/o chavez's esophagus (biopsy, tissue cypher, dilation) 2. Hiatal hernia 3. Gastritis (biopsy) 4. Bulbar duodenitis (biopsy) 5. Normal colon and terminal ileum mucosa 6. Total 1 polyp removed 7. Diverticulosis 8. Internal and external hemorrhoids Recommendations:?? * Follow-up path results * Avoid NSAIDs and smoking * H Pylori treatment if biopsies + * Start omeprazole 20 mg daily * Repeat EGD in 5 years if BE confirmed on bx * Repeat colonoscopy for CRC screening in 7 years.
[2025-08-14 10:09] VITALS: BP 117/67; PULSE 71; RESP 16; TEMP 36.2; O2SAT 94
[2025-08-14 10:24] VITALS: BP 117/79; PULSE 78; RESP 16; TEMP 36.6; O2SAT 96
== END 2025-08-14 10:48 | disposition home or self-care (01) ==
PROVIDERS: PCP Nurse Practitioner Family; Visit Provider Internal Medicine
PROC: (CPT 45385; principal; 2025-08-14 09:00)
DX: Z12.11 Encounter for screening for malignant neoplasm of colon (principal); K21.9 Gastro-esophageal reflux disease without esophagitis; R13.10 Dysphagia, unspecified; K64.4 Residual hemorrhoidal skin tags; K64.8 Other hemorrhoids; K57.30 Diverticulosis of large intestine without perforation or abscess without bleeding; D12.3 Benign neoplasm of transverse colon; K29.80 Duodenitis without bleeding; K22.70 Barrett's esophagus without dysplasia
CPT/HCPCS: 45385; 43239; 43248; 88305; 88313; 88342; C1769; J2003; J2704

== ENCOUNTER → 2025-08-14 07:29 | Outpatient (BNV) | payer MEDICARE, MEDICAID, SELFPAY | PROVIDERS: PCP Nurse Practitioner Family; Visit Provider Internal Medicine | DX: Z12.11 Encounter for screening for malignant neoplasm of colon (principal); K63.5 Polyp of colon; K57.30 Diverticulosis of large intestine without perforation or abscess without bleeding; K64.8 Other hemorrhoids; R13.10 Dysphagia, unspecified; K29.70 Gastritis, unspecified, without bleeding; K29.80 Duodenitis without bleeding | CPT/HCPCS: 43239; 43248; 45385 ==